=== PATIENT | male | born 1940 | race Caucasian/White ===

== ENCOUNTER 2019-02-01 13:38 | Outpatient (REF) | payer MEDICARE, MEDICAID, SELFPAY ==
[2019-02-01 15:27] LABS: Abs Immature Grans 0.01 k/cumm (0.0-0.09); Absolute Basophil Count 0.07 k/cumm (0.0-0.2); Absolute Lymphocyte Count 1.08 k/cumm (1.2-3.4); Absolute Monocyte Count 0.95 k/cumm (0.11-0.7); Absolute Neutrophil Count 4.42 k/cumm (1.2-6.7); Basophils % 1.1; Eosinophils % 1.5; HCT 27.5 % (40.0-50.0); HGB 8.3 g/dL (13.5-17.5); Immature Grans % 0.2; Lymphocytes % 16.3; Mean Corp. HGB Concentration 30.2 g/dL (32.0-36.0); Mean Corpuscular Hemoglobin 30.6 pg (27.0-33.0); Mean Corpuscular Volume 101.5 fL (80-95); Mean Platelet Volume 9.6 fL (8.0-11.0); Monocytes % 14.3; Neutrophils % 66.6; Platelet Count 323 x1000/uL (130-400); RBC 2.71 m/cumm (4.50-6.00); RBC Distribution Width 18.1 % (11.8-14.1); White Blood Cell Count 6.63 k/cumm (4.4-10.8)
[2019-02-01 16:13] LABS: BUN 16 mg/dL (7-18); CREATININE 0.96 mg/dL (0.70-1.30); Calcium 8.2 mg/dL (8.5-10.1); Chloride 98 mmol/L (98-107); Glucose 90 mg/dL (70-100); Potassium 3.7 mmol/L (3.5-5.1); Sodium 138 mmol/L (136-145)
[2019-02-01 16:20] LABS: Hypochromasia 1+; Macrocytosis 1+; Polychromasia Present
== END 2019-02-01 13:58 ==
LOC: LBN 13:38
PROVIDERS: PCP Family Medicine; Visit Provider Family Medicine
DX: J18.9 Pneumonia, unspecified organism (principal)
CPT/HCPCS: 80048; 85025

== ENCOUNTER 2019-02-03 11:23 | Outpatient (REF) | payer MEDICARE, MEDICAID, SELFPAY ==
[2019-02-03 11:45] LABS: HCT 28.8 % (40.0-50.0); HGB 8.7 g/dL (13.5-17.5)
== END 2019-02-03 11:43 ==
LOC: LBN 11:23
PROVIDERS: PCP Family Medicine; Visit Provider Family Medicine
DX: D64.9 Anemia, unspecified (principal)
CPT/HCPCS: 85014; 85018

== ENCOUNTER 2019-02-03 13:38 | Outpatient (REF) | payer MEDICARE, MEDICAID, SELFPAY | END 2019-02-03 13:58 | LOC: LBO 13:38 | PROVIDERS: PCP Family Medicine; Visit Provider Family Medicine | DX: D64.9 Anemia, unspecified (principal) | CPT/HCPCS: 36415; 86850; 86900; 86901 ==

== ENCOUNTER 2019-02-04 07:46 | Outpatient (REF) | payer MEDICARE, MEDICAID, SELFPAY ==
[2019-02-04 08:10] LABS: HCT 27.1 % (40.0-50.0); HGB 8.2 g/dL (13.5-17.5)
== END 2019-02-04 08:06 ==
LOC: LBN 07:46
PROVIDERS: PCP Family Medicine; Visit Provider Family Medicine
DX: D64.9 Anemia, unspecified (principal)
CPT/HCPCS: 85014; 85018

== ENCOUNTER 2019-02-09 13:45 | Inpatient (IN) | payer MEDICARE, MEDICAID, SELFPAY ==
[2019-02-09] VITALS (126 sets, daily range): BP systolic 65–135; BP diastolic 42–83; PULSE 77–188; RESP 5–37; TEMP 36.9–38.9; O2SAT 84–98
--- NOTE | 2019-02-09 13:52 | DI.RAD_ITS ---
SYMPTOMS/DIAGNOSIS: SHORTNESS OF BREATH PORTABLE AP CHEST: Comparison is made with January,. The heart is enlarged, unchanged. There are bilateral pleural effusions, not significantly changed. The left upper lobe opacity is partially obscured by an overlying lead. Right lower lobe infiltrate is also seen. IMPRESSION: No significant change in bilateral pleural effusions and basilar infiltrates, as well as left upper lobe infiltrate versus mass.
--- NOTE | 2019-02-09 13:55 | W.ED.GENAD ---
Discharge Plan Disposition Patient Disposition: [facility] INPATIENT Condition: Critical Discharge Details Chief Complaint: SOB Clinical Impression: Hypoxia, CHF exacerbation, HCAP (healthcare-associated pneumonia) Primary Care Provider: Ike Godoy ED Provider: Vasu Shin Medical Decision Making 78 yo male with documented hx from [facility] of copd, chf, who comes in with chief complaint of shortness of breath. He arrives in the ED in very labored breathing only able to speak in 1-2 words and aturations in the low 80's. He was placed on bipap when he arrived with significant improvement in his work of breathing. HE apparently has had worsening trouble breathing over the past several days and reported temp of 100 yesterday. HE denies chest pain or vomit. HE was recently d/c'd from [place] per the pt. On exam he has diminished breath sounds at the bases with apical wheezing, on bedside u/s has no pericardial effusion, has moderate pleural effuions bilaterally. Will obtain ecg, lab work and chest xray to [facility] for anemia, pna, infarction among other causes of his symptoms though I feel chf is likely the cause of his symptoms given his pleural effusions and pedal edema. Paperwork states dnr/dni which he confirms with me verbally as well pt remains HD stable on bipap. REviewed records from [facility]. He has a hx of lung cancer that he declines further eval and tx for , valvular heart disease (moderate T, mild , mild MR), peripheral artery disease (prior aortobifemoral stent and right external iliac stent), copd, chf, and severe pulmonary htn. He was admitted after he had compression fx's from a fall and also pna and copd exacerbation. HE subsequently had a gi bleed requiring transfusions and had an egd on 01/14 per their records showing gastritis, and was finally d/c'd on 01/26. His xray on my read shows edema with right infiltrate and labs show wbc of 13, negative troponin, probnp of over [address]. Spoke [address] headley who agrees with icu admission, will order abg at her request Differential Diagnosis copd, pna, chf Imaging Data Radiologic Study: Attestation: I personally reviewed and interpreted this imaging study as follows: Imaging: X-Ray My impression: pna, chf Lab Data Lab results reviewed: Yes I reviewed the patient's lab results. ECG Data Attestation: I personally reviewed and interpreted this ECG (s) as follows: Prior ECG tracings: not available for review Interpretation: sinus tachycardia, rate of 115, pr 145, st depressions in the lateral leads HPI General Mode of arrival: EMS. Date/Time Provider Initiated Documentation: 02/09/19 13:47. Information obtained by: patient and EMS. History of Present Illness 78 year old M presents to the emergency department with the chief complaint of short of breath, described as severe, Patient started experiencing this day(s) (3) and it has been constant. No relieving factors improve symptom(s), No exacerbating factors reported . Patient notes cough. Patient did receive the following treatments prior to arrival, none Review of Systems Review of Systems All systems reviewed & are unremarkable except as noted in HPI and below Eyes Denies loss of vision ENT Denies change in voice Cardiovascular Denies chest pain Gastrointestinal Denies abdominal pain, Denies nausea and Denies vomiting Genitourinary Denies dysuria Neurologic Denies loss of vision Exam Const General: in distress Orientation: alert HENMT Head: normal to inspection Ears: external ears normal General nose exam: external nose normal Mouth: moist mucous membranes Eyes General: appearance normal, both eyes and all related structures Neck Neck: normal visual inspection Resp Effort & Inspection: labored Cardio Rate: regular rate Skin General skin exam: no rashes or lesions noted Neuro General: alert Extrem General: normal to inspection Psych Mental Status: mental status grossly normal Course Lab/Test Results Lab/Test Results: 02/09/19 13:48 Blood Blood Culture - Pending 02/09/19 13:48 Blood Blood Culture - Pending Critical Care Time Critical Care Time: Yes Total Critical Care Time: 45 (minutes) Attestation: time spent initiating bipap, frequent rechecks, lab review and frequent monitoring of hemodynamics in patient with potential to deteriorate at any time
--- NOTE | 2019-02-09 14:01 | ED.GENADUL_ITS ---
Discharge Plan Disposition Patient Disposition: [facility] INPATIENT Condition: Critical Discharge Details Chief Complaint: SOB Clinical Impression: Hypoxia, CHF exacerbation, HCAP (healthcare-associated pneumonia) Primary Care Provider: Ike Godoy ED Provider: Vasu Shin Medical Decision Making 78 yo male with documented hx from [facility] of copd, chf, who comes in with chief complaint of shortness of breath. He arrives in the ED in ve ry labored breathing only able to speak in 1-2 words and aturations in the low 80's. He was placed on bipap when he arrived with significant improvement in his work of breathing. HE apparently has had worsening trouble breathing over the past several days and reported temp of 100 yesterday. HE denies chest pain or vomit. HE was recently d/c'd from [place] per the pt. On exam he has diminished breath sounds at the bases with apical wheezing, on bedside u/s has no pericardial effusion, has moderate pleural effuions bilaterally. Will obtain ecg, lab work and chest xray to ev[facility] for anemia, pna, infarction among other causes of his symptoms though I feel chf is likely the cause of his symptoms given his pleural effusions and pedal edema. Paperwork states dnr/dni which he confirms with me verbally as well pt remains HD stable on bipap. REviewed records from [facility]. He has a hx of lung cancer that he declines further eval and tx for , valvular heart disease (moderate T, mild , mild MR), peripheral artery disease (prior aortobifemoral stent and right external iliac stent), copd, chf, and severe pulmonary htn. He was admitted after he had compression fx's from a fall and also pna and copd exacerbation. HE subsequently had a gi bleed requiring transfusions and had an egd on 01/14 per their records showing gastritis, and was finally d/c'd on 01/26. His xray on my read shows edema with right infiltrate and labs show wbc of 13, negative troponin, probnp of over [address]. Spoke [address] headley who agrees with icu admission, will order abg at her request Differential Diagnosis copd, pna, chf Imaging Data Radiologic Study: Attestation: I personally reviewed and interpreted this imaging study as follows: Imaging: X-Ray My impression: pna, chf Lab Data Lab results reviewed: Yes I reviewed the patient's lab results. ECG Data Attestation: I personally reviewed and interpreted this ECG (s) as follows: Prior ECG tracings: not available for review Interpretation: sinus tachycardia, rate of 115, pr 145, st depressions in the lateral leads HPI General Mode of arrival: EMS . Date/Time Provider Initiated Documentation: 02/09/19 13:47 . Information obtained by: patient and EMS . History of Present Illness 78 year old M presents to the emergency department with the chief complaint of short of breath, described as severe, Patient started experiencing this day(s) (3) and it has been constant. No relieving factors improve symptom(s), No exacerbating factors reported . Patient notes cough. Patient did receive the following treatments prior to arrival, none Review of Systems Review of Systems All systems reviewed & are unremarkable except as noted in HPI and below Eyes Denies loss of vision ENT Denies change in voice Cardiovascular Denies chest pain Gastrointestinal Denies abdominal pain, Denies nausea and Denies vomiting Genitourinary Denies dysuria Neurologic Denies loss of vision Exam Const General: in distress Orientation: alert HENMT Head: normal to inspection Ears: external ears normal General nose exam: external nose normal Mouth: moist mucous membranes Eyes General: appearance normal, both eyes and all related structures Neck Neck: normal visual inspection Resp Effort & Inspection: labored Cardio Rate: regular rate Skin General skin exam: no rashes or lesions noted Neuro General: alert Extrem General: normal to inspection Psych Mental Status: mental status grossly normal Course Lab/Test Results Lab/Test Results: 02/09/19 13:48 Blood Blood Culture - Pending 02/09/19 13:48 Blood Blood Culture - Pending Critical Care Time Critical Care Time: Yes Total Critical Care Time: 45 (minutes) Attestation: time spent initiating bipap, frequent rechecks, lab review and frequent monitoring of hemodynamics in patient with potential to deteriorate at any time
--- NOTE | 2019-02-09 14:12 | NUR.NOTE ---
pt brought in by ems [facility] for respiratory distress and fever. reported that PT had fever of 102 and refused Tylenol and that o2 on 3 L NC was 79
[2019-02-09 14:15] LABS: Abs Immature Grans 0.04 k/cumm (0.0-0.09); HCT 31.5 % (40.0-50.0); HGB 9.5 g/dL (13.5-17.5); Mean Corp. HGB Concentration 30.2 g/dL (32.0-36.0); Mean Corpuscular Hemoglobin 30.6 pg (27.0-33.0); Mean Corpuscular Volume 101.6 fL (80-95); Mean Platelet Volume 8.9 fL (8.0-11.0); Platelet Count 313 x1000/uL (130-400); RBC Distribution Width 18.8 % (11.8-14.1); White Blood Cell Count 13.75 k/cumm (4.4-10.8)
[2019-02-09 14:27] LABS: INR 1.3 (0.9-1.1); PTT Activated 29.2 sec (21.0-31.4); Prothrombin Time 13.1 sec (9.3-11.0)
[2019-02-09 14:30] LABS: ALT 9 U/L (12-78); AST 16 U/L (15-37); Albumin 3.3 g/dL (3.4-5.0); Alkaline Phosphatase 112 U/L (46-116); Anion Gap 8.4 mmol/L (3-11); BUN 12 mg/dL (7-18); Bilirubin, Total 0.7 mg/dL (0.2-1.0); CO2 30.6 mmol/L (21.0-32.0); CREATININE 1.07 mg/dL (0.70-1.30); Calcium 8.4 mg/dL (8.5-10.1); Chloride 98 mmol/L (98-107); Glucose 112 mg/dL (70-100); Magnesium 1.5 mg/dL (1.8-2.4); Potassium 3.6 mmol/L (3.5-5.1); Sodium 137 mmol/L (136-145); Total Protein 7.4 g/dL (6.4-8.2); Troponin I 0.03 ng/mL (0.00-0.06)
[2019-02-09 14:33] LABS: NT-proBNP 8651 pg/mL
[2019-02-09 14:36] LABS: Absolute Lymphocyte Count 0.55 k/cumm (1.2-3.4); Absolute Monocyte Count 0.55 k/cumm (0.11-0.7); Absolute Neutrophil Count 12.65 k/cumm (1.2-6.7); Anisocytosis 2+; Basophilic Stippling Present; Diff Comment Manual Differential; Nucleated RBC 1 /100WBC
[2019-02-09 14:37] LABS: Hypochromasia 1+; Macrocytosis 2+; Microcytosis 1+; Polychromasia Present; Stomatocytes 2+
[2019-02-09 14:38] LABS: Poikilocytes 2+
[2019-02-09] MEDS: methylPREDNISolone SUCC 125 MG VIAL IVP (14:47)
[2019-02-09] MEDS: Furosemide 100 MG/10 ML VIAL 80 MG IVP (14:48)
[2019-02-09] MEDS: PIPERACILLIN/TAZO 4.5 GM in Normal Saline 100 ML IVPB (14:49)
[2019-02-09] MEDS: VANCOMYCIN 1,000 MG in Normal Saline 250 ML 166.6666 MG IVPB (14:49)
[2019-02-09 15:14] LABS: Bilirubin Negative (Negative); Blood Trace-intact (Negative); Clarity Clear; Glucose Negative (Negative); Ketones Negative (Negative); Leukocyte Esterase Negative (Negative); Nitrite Negative (Negative); Specific Gravity 1.015 (1.005-1.025); Urobilinogen 0.2 EU/dL (Up TO 0.2)
[2019-02-09 15:24] LABS: Bacteria Rare HPF (Negative); C & S Indicated? No; Casts 0-2 Hyaline LPF (Negative); Crystals Negative HPF (Negative); Epithelial Cells Rare HPF (Negative); Mucus Trace (Negative); Other Cells Rare Renal (Negative); RBC 0-2 (0-2); WBC 0-2 HPF (0-5)
[2019-02-09 15:40] LABS: BE 5.8 mmol/L (-3-3); HCO3 29 mmol/L (22-28); pCO2 40 mmHg (34-47); pH 7.48 (7.35-7.45); pO2 95 mmHg (83-108); sO2 98 % (94-98); tCO2 27 mmol/L (22-29)
[2019-02-09 15:43] LABS: FIO2 50 %; FIO2L BiPAP L; Site Right Radial
[2019-02-09] MEDS: Metoprolol 5 MG/5 ML VIAL IVP (15:50)
[2019-02-09] MEDS: dilTIAZem 125 MG in Normal Saline 100 ML IV (16:00)
--- NOTE | 2019-02-09 16:33 | W.PM.HP.N ---
Date of service: 02/09/19 Time of Service: 16:33 Assessment and Plan (1) Sepsis: Current visit: Yes Status: Acute Likely due to HCAP or possibly aspiration pneumonia. Blood cultures and sputum cultures are ordered. Treat with IV abx (vancomycin, zosyn). Trend lactates. At this point, IV hydration has to be done very carefully as the patient did present in florid CHF. (2) HCAP (healthcare-associated pneumonia): Current visit: Yes Status: Acute As above. Ensure there is no aspiration component. Speech therapy consulted. NPO while on BiPAP (3) Acute and chronic respiratory failure with hypoxia: Current visit: Yes Status: Acute Treat Pneumonia, COPD exacerbation, CHF - abx, diuresis as tolerated, rate control, steroids, nebs. Wean BiPAP as tolerated. (4) Acute exacerbation of chronic obstructive pulmonary disease (COPD): Current visit: Yes Status: Acute Treat as above (5) Rapid atrial fibrillation: Current visit: Yes Status: Acute Likely at least partially the cause of the acute exacerbation of CHF. Patient is on a cardizem gtt but BP's are borderline - will trial digoxin. Will monitor in the ICU. R/o ACS. (6) Acute CHF: Current visit: Yes Status: Acute On chronic. Reportedly has both systolic and diastolic dysfunction, but we are not aware of the actual EF. Check echo. R/o ACS. Diurese as BP's permit (right now, BP's are a little too low for me to comfortably give any more diuretics - will reassess in am). Monitor daily weights, I/O's. (7) Hypomagnesemia: Current visit: Yes Status: Acute Replete (8) CAD (coronary artery disease): Current visit: Yes Status: Chronic R/o ACS (9) H/O: GI bleed: Current visit: Yes Status: Resolved Abstaining from chemical DVT ppx. (10) Anemia: Current visit: Yes Status: Chronic H/H stable but will monitor (11) Ambulatory dysfunction: Current visit: Yes Status: Acute PT/OT consulted (12) Lung mass: Current visit: Yes Status: Acute Palliative care consult. (13) Discharge planning issues: Current visit: Yes Status: Acute DNR/DNI. Could possibly benefit from palliative care consultation (14) DVT prophylaxis: Current visit: Yes Status: Acute SCD's + TEDs History of Present Illness Chief Complaint: I couldn't breathe Narrative: Mr Hyman is a 78 year old male with PMHx of CAD, Atrial fibrillation, CHF (combined systolic and diastolic, EF unknown), COPD, PAD, severe pulmonary hypertension, recent pneumonia treated at [facility] 01/02/19 -01/26/19, GI bleed on that admission due to gastritis, lung cancer, BPH with urinary retention, who presented to [facility] ED from [facility] re[facility] complaining of shortness of breath. In the ED, he was found to by hypoxic to the 80's on 3L (described as his baseline), found to be in acute CHF, placed on BIPAP and diuresed. He was also found to have a RLL pneumonia, suspicious for aspiration. He went into rapid Afib with HR up to 170's, that minimally responded to 5 mg of IV lopressor. He was placed on cardizem gtt and given back 500 cc of NS to help with the BP (in the 80's, asymptomatic) so that he can tolerate it. We were asked to admit the patient for further care. The patient is A&Ox1, confused, but cooperative. He cannot provide his own history due to being on BIPAP and in respiratory distress. He was able to state he is no longer feeling short of breath (this is while with increased work of breathing), he denied chest pain, dizziness, or nausea. Review of Systems Review of Systems 12 systems reviewed. Pertinent positives and negatives are as per HPI. PFSH Medical History Alcohol dependence (Chronic) Ambulatory dysfunction (Chronic) Anemia, iron deficiency (Chronic) Atrial fibrillation (Chronic) BPH (benign prostatic hyperplasia) (Chronic) CAD (coronary artery disease) (Chronic) COPD (chronic obstructive pulmonary disease) (Chronic) Chronic combined systolic and diastolic CHF (congestive heart failure) (Chronic) Chronic respiratory failure with hypoxia (Chronic) Gastritis (Chronic) Gout (Chronic) Lung cancer (Chronic) PAD (peripheral artery disease) (Chronic) Pulmonary hypertension (Chronic) Tricuspid regurgitation (Chronic) Urinary retention (Chronic) Vertebral compression fracture (Chronic) GI hemorrhage (Resolved) Pneumonia (Resolved) Surgical History H/O angioplasty (Chronic) History of esophagogastroduodenoscopy (EGD) (Chronic) Hx of colonoscopy (Chronic) S/P aortobifemoral bypass surgery (Chronic) Social History Smoking/Tobacco Use Status: Former Tobacco Use Alcohol Intake: former Drug use: Never Details: [t short of breath non verbal Do you feel safe at home: Yes Do you feel safe in your relationship?: Yes Meds Home Medications Medication Instructions Recorded Confirmed Type acetaminophen 500 mg PO Q6H PRN 02/09/19 02/09/19 History albuterol sulfate [Ventolin HFA] 2 puff INHALATION Q4H PRN PRN 02/09/19 02/09/19 History allopurinol 300 mg PO DAILY 02/09/19 02/09/19 History alum-mag hydroxide-simeth [Antacid] 10 ml PO Q6H PRN 02/09/19 02/09/19 History calcium carbonate-vitamin D3 1 cap PO TID 02/09/19 02/09/19 History [Calcium 600 + D(3)] docusate sodium [Colace] 100 mg PO BID 02/09/19 02/09/19 History ferrous sulfate 325 mg PO BID 02/09/19 02/09/19 History finasteride 5 mg PO DAILY 02/09/19 02/09/19 History fluticasone furoate-vilanterol 1 inh INHALATION DAILY 02/09/19 02/09/19 History [Breo Ellipta] folic acid 1 mg PO DAILY 02/09/19 02/09/19 History furosemide 40 mg PO DAILY 02/09/19 02/09/19 History gabapentin 300 mg PO TID 02/09/19 02/09/19 History lidocaine [Lidoderm] 1 patch TRANSDERMAL DAILY 02/09/19 02/09/19 History metoprolol succinate 50 mg PO DAILY 02/09/19 02/09/19 History multivitamin 1 tab PO DAILY 02/09/19 02/09/19 History oxycodone 5 mg PO Q6H 02/09/19 02/09/19 History pantoprazole [Protonix] 40 mg PO BID 02/09/19 02/09/19 History polyethylene glycol 3350 [Miralax] 17 g PO DAILY 02/09/19 02/09/19 History primidone 50 mg PO TID 02/09/19 02/09/19 History sennosides [senna] 17.2 mg PO DAILY 02/09/19 02/09/19 History simvastatin 20 mg PO QAM 02/09/19 02/09/19 History sucralfate 1 g PO AC & HS 02/09/19 02/09/19 History tamsulosin [Flomax] 0.8 mg PO DAILY 02/09/19 02/09/19 History thiamine HCl (vitamin B1) 100 mg PO DAILY 02/09/19 02/09/19 History Exam Narrative Exam Narrative: General: Elderly male, in bed, with respiratory distress, on BiPAP, appears anxious Neurological: A&Ox1, no focal deficits Psychiatric: Anxious Skin: Dry HEENT: Atraumatic, normocephalic, EOMI, Dry MM, wearing BiPAP - unable to examine oropharynx; no submandibular or cervical lymphadenopathy, no goiter, + slight Cardiovascular: Tachycardic, when listening - rhythm regular Lungs: Ronchi and rales Bilaterally Gastrointestinal: abdomen is soft, nontender, nondistended Genitourinary: has a edwards Extremities: 2+ BLE edema, 1+ B pedal pulses, no clubbing/cyanosis Results Imaging Additional studies: CXR: No significant change in bilateral pleural effusions and basilar infiltrates, as well as left upper lobe infiltrate versus mass. CTA chest: 1. Mild mediastinal and hilar adenopathy. 2. Bilateral small pleural effusions with associated atelectasis. 3. 4 x 3 x 4.4 cm masslike density with ill-defined margins left upper lobe. Neoplasm cannot be excluded. 4. Mild patchy somewhat nodular air space disease scattered throughout the right lung and left lower lobe. 5. Cirrhotic appearing liver. 6. No pulmonary embolism identified. EKG: HR 163, Afib, Diffuse ST depressions Labs : 02/09/19 14:00 02/09/19 14:00 Laboratory Results - last 24 hr 02/09/19 02/09/19 02/09/19 14:00 14:00 14:00 WBC 13.75 H RBC 3.10 L Hgb 9.5 L Hct 31.5 L MCV 101.6 H MCH 30.6 MCHC 30.2 L RDW 18.8 H Plt Count 313 MPV 8.9 Immature Gran % 0.0 Neutrophils % 90.0 Band Neutrophils % 2.0 Lymphocytes % 4.0 Monocytes % 4.0 Eosinophils % 0.0 Basophils % 0.0 Absolute Neutrophils 12.65 H Absolute Lymphocytes 0.55 L Absolute Monocytes 0.55 Absolute Eosinophils 0.00 Absolute Basophils 0.00 Nucleated RBCs 1 Differential Comment Manual differential RBC Morphology See below Polychromasia Present Hypochromasia 1+ Poikilocytosis 2+ Basophilic Stippling Present Anisocytosis 2+ Microcytosis 1+ Macrocytosis 2+ Stomatocytes 2+ PT INR APTT Sample Site pCO2 pO2 O2 Saturation ABG pH ABG HCO3 ABG Total CO2 ABG Base Excess Oxygen Liter Flow FiO2 Sodium 137 Potassium 3.6 Chloride 98 Carbon Dioxide 30.6 Anion Gap 8.4 BUN 12 Creatinine 1.07 Estimated GFR/1.73 m2 >= 60.00 Glucose 112 H Calcium 8.4 L Magnesium 1.5 L Total Bilirubin 0.7 AST 16 ALT 9 L Alkaline Phosphatase 112 Troponin I 0.03 NT-Pro-B Natriuret Pep 8651 H Total Protein 7.4 Albumin 3.3 L Urine Color Urine Clarity Urine pH Ur Specific [place] Urine Protein Urine Ketones Urine Blood Urine Nitrite Urine Bilirubin Urine Urobilinogen Ur Leukocyte Esterase Urine RBC Urine WBC Ur Epithelial Cells Urine Crystals Urine Bacteria Urine Casts Urine Mucus Urine Other Ur Culture Indicated? Urine Glucose 02/09/19 02/09/19 02/09/19 14:00 15:00 15:35 WBC RBC Hgb Hct MCV MCH MCHC RDW Plt Count MPV Immature Gran % Neutrophils % Band Neutrophils % Lymphocytes % Monocytes % Eosinophils % Basophils % Absolute Neutrophils Absolute Lymphocytes Absolute Monocytes Absolute Eosinophils Absolute Basophils Nucleated RBCs Differential Comment RBC Morphology Polychromasia Hypochromasia Poikilocytosis Basophilic Stippling Anisocytosis Microcytosis Macrocytosis Stomatocytes PT 13.1 H INR 1.3 H APTT 29.2 Sample Site Right radial pCO2 40 pO2 95 O2 Saturation 98 ABG pH 7.48 H ABG HCO3 29 H ABG Total CO2 27 ABG Base Excess 5.8 H Oxygen Liter Flow Bipap FiO2 50 Sodium Potassium Chloride Carbon Dioxide Anion Gap BUN Creatinine Estimated GFR/1.73 m2 Glucose Calcium Magnesium Total Bilirubin AST ALT Alkaline Phosphatase Troponin I NT-Pro-B Natriuret Pep Total Protein Albumin Urine Color Yellow Urine Clarity Clear Urine pH 6.0 Ur Specific [place] 1.015 Urine Protein 100 H Urine Ketones Negative Urine Blood Trace-intact H Urine Nitrite Negative Urine Bilirubin Negative Urine Urobilinogen 0.2 Ur Leukocyte Esterase Negative Urine RBC 0-2 Urine WBC 0-2 Ur Epithelial Cells Rare Urine Crystals Negative Urine Bacteria Rare Urine Casts 0-2 hyaline Urine Mucus Trace Urine Other Rare renal Ur Culture Indicated? No Urine Glucose Negative Last Vital Signs Temp 38.9 C H 02/09/19 14:14 Pulse 153 H 02/09/19 16:12 Resp 23 02/09/19 16:15 BP 111/76 02/09/19 16:15 Pulse Ox 95 02/09/19 16:15
--- NOTE | 2019-02-09 16:55 | DI.CT_ITS ---
SYMPTOM/DIAGNOSIS: HYPOXIA, LUNG CA, ? PE PE CHEST CT: CT angiography was performed with multi slice acquisition and multi planar and 3D reconstruction. The study was conducted according to the usual protocol with an intravenous administration of 69 cc's of Omnipaque 350. There are atherosclerotic changes involving the aorta without evidence of an aneurysm. There is a 4 by 3 by 4.4 cm. mass density with ill defined margins in the left upper lobe. Also noted is made of patchy and somewhat nodular air space disease scattered throughout the right lung and left lower lobe. Small bilateral pleural effusions are associated with atelectasis. The heart is mildly enlarged and coronary artery calcification is demonstrated. In the upper abdomen, note is made of a nodular liver, the findings consistent with cirrhosis. There is mild adenopathy in the mediastinum and brad. The bony structures are unremarkable. Note is also made in this patient of apparent bilateral gynecomastia. SUMMARY: Mild mediastinal hilar adenopathy. No evidence of pulmonary embolic disease. Bilateral small pleural effusions. There is a 4 by 3 by 4.4 cm. apparent mass density with ill defined margins in the left upper lobe. Note is also made of mild patchy somewhat nodular air space disease throughout the right lung and left lower lobe. The appearance of the liver would be consistent with cirrhosis.
[2019-02-09] MEDS: Pantoprazole 40 MG VIAL IVP ×2 (17:29→21:03)
[2019-02-09] MEDS: Normal Saline Flush 10 ML SYR IVP ×2 (17:29→17:53)
--- NOTE | 2019-02-09 17:40 | DI.VRAD_ITS ---
EXAM: CT Angiography Chest With Contrast EXAM DATE/TIME: 02/09/2019 4:02 PM CLINICAL HISTORY: 78 years old, male; Signs and symptoms; Shortness of breath; Patient HX: Hypoxia, lung cancer, ? pe TECHNIQUE: Imaging protocol: Axial computed tomographic angiography images of the chest with intravenous contrast using CT angiography protocol. Coronal and sagittal reformatted images were created and reviewed. 3D rendering: MIP reconstructed images were created and reviewed. Radiation optimization: All CT scans at this facility use at least one of these dose optimization techniques: automated exposure control; mA and/or kV adjustment per patient size (includes targeted exams where dose is matched to clinical indication); or iterative reconstruction. Contrast material: omnipaque 350 Contrast volume: 69 ml Contrast route: IV COMPARISON: CR XR PORTABLE CHEST AP 02/09/2019 2:28 PM FINDINGS: Pulmonary arteries: No pulmonary embolism identified. Aorta: Aorta demonstrates moderate atherosclerotic calcification. Lungs: 4 x 3 x 4.4 cm masslike density with ill-defined margins left upper lobe. Mild patchy somewhat nodular air space disease scattered throughout the right lung and left lower lobe. Pleural space: Bilateral small pleural effusions with associated atelectasis. Heart: Mild cardiomegaly. Coronary artery calcifications noted. Liver: Nodular contour to the liver consistent with hepatocellular dysfunction/ cirrhosis. Lymph nodes: Mild mediastinal and hilar adenopathy. Bones/joints: Unremarkable. No acute fracture. Soft tissues: Bilateral gynecomastia. IMPRESSION: 1. Mild mediastinal and hilar adenopathy. 2. Bilateral small pleural effusions with associated atelectasis. 3. 4 x 3 x 4.4 cm masslike density with ill-defined margins left upper lobe. Neoplasm cannot be excluded. 4. Mild patchy somewhat nodular air space disease scattered throughout the right lung and left lower lobe. 5. Cirrhotic appearing liver. 6. No pulmonary embolism identified. Dictated and Authenticated by: Alcides Burgos MD. Ordering:IVET Leone MD
[2019-02-09] MEDS: Digoxin 0.5 MG/2 ML AMP 0.125 MG IVP (17:52)
[2019-02-09] MEDS: Digoxin 0.5 MG/2 ML AMP (18:16)
[2019-02-09 18:18] LABS: Lactate-non-spesis 1.2 mmol/l (0.6-1.4)
[2019-02-09] MEDS: Normal Saline 1,000 ML 75 ML IV (18:45)
[2019-02-09] MEDS: MAGNESIUM SULFATE 4 GM/100 ML BAG IVPB (18:50)
[2019-02-09] MEDS: Normal Saline 500 ML IV ×2 (19:30→19:45)
[2019-02-09 20:14] LABS: HCT 27.3 % (40.0-50.0); HGB 8.2 g/dL (13.5-17.5)
[2019-02-09 20:56] LABS: Troponin I 0.14 ng/mL (0.00-0.06)
[2019-02-09] MEDS: Calcium 600mg/Vit D 200U TAB 1 TAB PO (21:02)
[2019-02-09] MEDS: Ferrous Sulfate 325 MG TAB PO (21:02)
[2019-02-09] MEDS: Docusate Sodium 100 MG CAP PO (21:02)
[2019-02-09] MEDS: Simvastatin 20 MG TAB PO (21:05)
[2019-02-09] MEDS: Sucralfate 1 GM TAB PO (21:05)
[2019-02-09] MEDS: Gabapentin 300 MG CAP PO (21:05)
[2019-02-09] MEDS: methylPREDNISolone SUCC 125 MG VIAL 60 MG IVP (21:06)
[2019-02-09] MEDS: Primidone 50 MG TAB PO (21:55)
[2019-02-09 23:59] LABS: Troponin I 0.56 ng/mL (0.00-0.06)
[2019-02-10] VITALS (141 sets, daily range): BP systolic 72–124; BP diastolic 30–84; PULSE 61–103; RESP 14–29; TEMP 36.5–37.1; O2SAT 91–100
[2019-02-10] MEDS: dilTIAZem 30 MG TAB PO ×4 (00:36→19:35)
[2019-02-10] MEDS: Normal Saline Flush 10 ML SYR IVP ×3 (05:24→21:14)
[2019-02-10] MEDS: methylPREDNISolone SUCC 125 MG VIAL 60 MG IVP ×3 (05:24→21:16)
[2019-02-10] MEDS: Budesonide/Formoterol 160/4.5 6 GM 60 PUFF INH IH ×2 (07:20→19:34)
[2019-02-10 07:21] LABS: Absolute Basophil Count 0.01 k/cumm (0.0-0.2); Absolute Lymphocyte Count 0.25 k/cumm (1.2-3.4); Absolute Monocyte Count 0.36 k/cumm (0.11-0.7); Basophils % 0.3; HCT 27.5 % (40.0-50.0); HGB 8.2 g/dL (13.5-17.5); Lymphocytes % 6.5; Mean Corp. HGB Concentration 29.8 g/dL (32.0-36.0); Mean Corpuscular Hemoglobin 30.4 pg (27.0-33.0); Mean Corpuscular Volume 101.9 fL (80-95); Mean Platelet Volume 9.5 fL (8.0-11.0); Monocytes % 9.4; Neutrophils % 83.8; Platelet Count 243 x1000/uL (130-400); RBC Distribution Width 18.7 % (11.8-14.1); White Blood Cell Count 3.82 k/cumm (4.4-10.8)
[2019-02-10 07:42] LABS: BUN 16 mg/dL (7-18); CREATININE 1.06 mg/dL (0.70-1.30); Calcium 7.8 mg/dL (8.5-10.1); Chloride 99 mmol/L (98-107); Cholesterol 106 mg/dL (50-200); Glucose 133 mg/dL (70-100); HDL Cholesterol 43 mg/dL (40-60); LDL CHOLESTEROL 59 mg/dL (<100); Magnesium 2.2 mg/dL (1.8-2.4); Potassium 3.1 mmol/L (3.5-5.1); Sodium 137 mmol/L (136-145); TSH (W/Ref FT4) 0.57 uIU/mL (0.358-3.74); Triglyceride 50 mg/dL (30-150)
[2019-02-10] MEDS: Polyethylene Glycol 3350 17 GM PACKET PO (08:02)
[2019-02-10] MEDS: Lidocaine 5% Patch 1 PATCH TD (08:02)
[2019-02-10] MEDS: Pantoprazole 40 MG VIAL IVP ×2 (08:03→19:35)
[2019-02-10] MEDS: Gabapentin 300 MG CAP PO ×3 (08:04→19:35)
[2019-02-10] MEDS: Tamsulosin 0.4 MG CAPCR 0.8 MG PO (08:04)
[2019-02-10] MEDS: Metoprolol CR 50 MG TABCR PO (08:05)
[2019-02-10] MEDS: Thiamine 100 MG TAB PO (08:05)
[2019-02-10] MEDS: Ferrous Sulfate 325 MG TAB PO ×2 (08:05→19:35)
[2019-02-10] MEDS: Senna TAB 1 TAB PO (08:05)
[2019-02-10] MEDS: Docusate Sodium 100 MG CAP PO ×2 (08:05→19:35)
[2019-02-10] MEDS: Folic Acid 1 MG TAB PO (08:05)
[2019-02-10] MEDS: Multivitamin TAB 1 TAB PO (08:05)
[2019-02-10] MEDS: Calcium 600mg/Vit D 200U TAB 1 TAB PO ×3 (08:05→19:35)
[2019-02-10] MEDS: Sucralfate 1 GM TAB PO ×4 (08:05→21:15)
--- NOTE | 2019-02-10 08:52 | EVALE_ITS ---
Date of service: 02/08/19 Time of Service: 07:15 Speech Therapy Evaluation Note: REFERRING PROVIDER: Dr. Hanson BACKGROUND This is a 78 year old right-handed male who was brought to the ED from [facility] on 02/09/19 with c/o dyspnea. He was found to have hypoxia, COPD exacerbation & HCAP. A CXR of that date revealed bilateral (B) pleural effusions and RLL infiltrate. A swallow eval was requested due to a question of aspiration pneumonia. PMH: CAD, A-fib, CHF, COPD, PAD, BPH, lung CA, pulmonary HTN, GOUT, ETOH dependance, recent h/o pneumonia. OBJECTIVE Nursing reports: - T: 37.0 - O2 sat: 95% on 4L via NC - LS: crackles B in the presence of ABX. - Pt is n.p.o. with the exception of p.o.medications. - Toleration of whole pills with a Thin liquid wash. Patient (pt) is reclined in bed watching TV. He is willing to have me work with him but he seems to do so grudgingly. He offers no smile nor any verbal or gestural greeting. He makes minimal direct eye contact with me unless asked to turn his head toward me. He is A & O x 2 (person, place with self-correction) and is able to follow 3-step directions. Oral Sensorimotor Exam The pt is totally edentulous and has a full upper denture (FUD) and full lower denture (FLD). He states they are 13-14 years old and they do not cause him any discomfort. He feels the FUD fits well and he does not use any denture adhesive. He never takes them out, even to clean them. On inspection, they look to be in good condition and the FUD is stable. Oral sensation is WNL-B for buccal, labial & lingual areas. Motorically, the smile is symmetrical as are forehead wrinkles. Buccal & labial strength/coordination is WNL-B. No lingual deviation on protrusion is seen in a setting of good excursion. Lingual lateralization is WNL-B as are lingual rapid alternating movements. No lingual fasciculations are noted. Lingual strength is WNL-B as is mandibular lateralization. Velopharyngeal elevation is strong and symmetrical. Volitional cough & throat-clear are both strong. Speech intelligibility to this unfamiliar listener in a setting of mild background noise is 100%. Vocal quality & intensity are WNL. Swallowing: - Honey-thick liquid: Good bolus control & posterior oral transit (POT); no abran signs/symptoms (s/s) aspiration/penetration (A/P); oral clearance 100%; no oral escape. These results are true for both single and consecutive swallows by cup. - Mcbaine-thick liquid: Results are the same as for Honey-thick liquid. These results are true for both single & consecutive swallows by both cup & straw. - Thin liquid: Results are the same as for Mcbaine-thick liquid. - Puree food: Good bolus control & linguopalatal bolus compression; no abran s/s A/P; oral clearance 100%; no oral escape. - Mechanically Altered food: Good mastication quality, bolus control & POT; no abran s/s A/P; oral clearance 100%; no oral escape. - Dysphagia Advanced food: Use of increased mastication time but this does result in good mastication quality; no abran s/s /P; oral clearance 100%; no oral escape. Pt is observed to self-feed independently using his LUE and a regular utensil. He has difficulty using his dominant RUE due to tremor. INTERPRETATION The pt shows a mild oral-prep dysphagia due to having full upper and lower dentures. He shows no clinical signs of a pharyngeal dysphagia. His current pneumonia may not be due to aspiration unless he has silent aspiration or was on foods he was unable to consistently chew sufficiently for safe swallowing. RECOMMENDATIONS 1. Change from n.p.o. to p.o. with: - Thin liquids - a Dysphagia Advnaced diet with chopped meats - whole pills with a liquid wash 2. Independent self-feeding 3. Follow-up speech therapy to monitor pt's toleration of above p.o. consistencies. Thank you for referring this pt.
[2019-02-10] MEDS: Potassium Chloride 20 MEQ TABCR 40 MEQ PO (09:08)
[2019-02-10] MEDS: Primidone 50 MG TAB PO ×3 (09:08→19:35)
[2019-02-10] MEDS: Allopurinol 300 MG TAB PO (09:08)
[2019-02-10] MEDS: Finasteride 5 MG TAB PO (09:08)
--- NOTE | 2019-02-10 09:15 | MERGE_ITS ---
*[facility]* *[facility]* [address] [place] [address] Date of study: 02/10/2019 Transthoracic Echocardiography M-mode, complete 2D, complete spectral Doppler, and color Doppler *STUDY CONCLUSIONS* Summary: 1. Left ventricle: The cavity size was normal. Systolic function was hyperdynamic. The estimated ejection fraction was 65-70%. Some parameters suggest diastolic dysfunction. Doppler parameters are consistent with high ventricular filling pressure. Stroke volume/bsa (LVOT, Doppler): 26ml/m^2. 2. Ventricular septum: The contour showed diastolic flattening and systolic flattening. These changes are consistent with RV volume and RV pressure overload. 3. Aortic valve: There was moderate stenosis. Peak velocity (S): 2.1m/sec. Mean gradient (S): 10.6mm Hg. Valve area (VTI): 1.3cm^2. Indexed valve area (Vmean): 0.6cm^2/m^2. 4. Mitral valve: Mildly calcified annulus. There was moderate to severe regurgitation. 5. Left atrium: The atrium was severely dilated. 6. Right ventricle: The cavity size was mildly dilated. Systolic function was moderately reduced. 7. Right atrium: The atrium was severely dilated. 8. Atrial septum: No defect or patent foramen ovale was identified. 9. Tricuspid valve: There was severe regurgitation. 10. Pulmonic valve: There was moderate regurgitation. 11. Pulmonary arteries: Pulmonary systolic pressure was in the range of 100mm Hg to 115mm Hg. 12. Inferior vena cava: The vessel was patent and normal in size. The respirophasic diameter changes were in the normal range (greater than or equal to 50%), consistent with normal central venous pressure. *PATIENT PRESENTATION* Height: 180.3cm ((71in) ) S/D Pressure: 119 / 57 Weight: 77.1kg ((169.6lb) ) BSA: 1.97m^2 Test start time: 09:20 AM. Test stop time: 10:15 AM. PERFORMING Unknown CONSULTING Ike Godoy PERFORMING [facility] FUR COAT SEWER RT Naomie (R)(CT), [facility] ORDERING Ninfa Hanson REFERRING Ninfa Hanson *PROCEDURE DATA* Procedure information: The patient was identified by two identifiers. This study was interpreted by [facility]. Pertinent images and digital data are archived for permanent storage and are available for subsequent review. No prior study was available for comparison. Study status: Routine. Transthoracic echocardiography. M-mode, complete 2D, complete spectral Doppler, and color Doppler. A Transthoracic Echocardiogram was performed. Scanning was performed from the parasternal, apical, subcostal, and suprasternal notch acoustic windows. Images were obtained using an [id number] cardiac ultrasound machine. Image quality was adequate. Study completion: The patient tolerated the procedure well. History: PMH: CHF. *CARDIAC ANATOMY* Left ventricle: The cavity size was normal. Systolic function was hyperdynamic. The estimated ejection fraction was 65-70%. Some parameters suggest diastolic dysfunction. Doppler parameters are consistent with high ventricular filling pressure. Aortic valve: Severely thickened, severely calcified leaflets. Doppler: There was moderate stenosis. There was no significant regurgitation. VTI ratio of LVOT to aortic valve: 0.44. Valve area (VTI): 1.3cm^2. Indexed valve area (VTI): 0.7cm^2/m^2. Peak velocity ratio of LVOT to aortic valve: 0.39. Valve area (Vmax): 1.2cm^2. Indexed valve area (Vmax): 0.6cm^2/m^2. Mean velocity ratio of LVOT to aortic valve: 0.43. Valve area (Vmean): 1.3cm^2. Indexed valve area (Vmean): 0.6cm^2/m^2. Mean gradient (S): 10.6mm Hg. Peak gradient (S): 18.2mm Hg. Mitral valve: Mildly calcified annulus. Doppler: There was no evidence for stenosis. There was moderate to severe regurgitation. Valve area by pressure half-time: 4cm^2. Indexed valve area by pressure half-time: 2cm^2/m^2. Peak gradient (D): 9.6mm Hg. Left atrium: The atrium was severely dilated. Atrial septum: No defect or patent foramen ovale was identified. Right ventricle: The cavity size was mildly dilated. Systolic function was moderately reduced. Ventricular septum: The contour showed diastolic flattening and systolic flattening. These changes are consistent with RV volume and RV pressure overload. Pulmonic valve: Doppler: There was no evidence for stenosis. There was moderate regurgitation. Peak gradient (S): 9mm Hg. Tricuspid valve: Doppler: There was severe regurgitation. Pulmonary artery: Poorly visualized. Pulmonary systolic pressure was in the range of 100mm Hg to 115mm Hg. Right atrium: The atrium was severely dilated. Pericardium: There was no pericardial effusion. Systemic veins: Inferior vena cava: Well visualized. The vessel was patent and normal in size. The respirophasic diameter changes were in the normal range (greater than or equal to 50%), consistent with normal central venous pressure. Baseline ECG: Normal sinus rhythm. Measurements Left ventricle Value Reference LV ID, ED, PLAX 4.9 cm 3.5 - 6.0 LV ID, ES, PLAX 3.4 cm 2.1 - 4.0 LV PW thickness, ED, PLAX 1.4 cm LV end-diastolic volume, 1-p A2C 106 ml LV ejection fraction, 1-p A2C 60 % LV end-diastolic volume, 1-p A4C 115 ml LV ejection fraction, 1-p A4C 67 % LV e', lateral 0.102 m/sec LV E/e', lateral 15 LV e', medial 0.079 m/sec LV E/e', medial 20 LV e', average 0.09 m/sec LV E/e', average 17 Ventricular septum Value Reference IVS thickness, ED, PLAX 1.2 cm LVOT Value Reference LVOT ID, A-P 1.9 cm LVOT area 3 cm^2 LVOT peak velocity, S 0.83 m/sec LVOT mean velocity, S 0.66 m/sec LVOT VTI, S 17.2 cm LVOT peak gradient, S 2.8 mm Hg LVOT mean gradient, S 1.9 mm Hg Stroke volume (SV), LVOT DP 51 ml Stroke index (SV/bsa), LVOT DP 26 ml/m^2 Aortic valve Value Reference Aortic valve peak velocity, S 2.1 m/sec Aortic valve mean velocity, S 1.53 m/sec Aortic valve VTI, S 39.0 cm Aortic mean gradient, S 10.6 mm Hg Aortic peak gradient, S 18.2 mm Hg VTI ratio, LVOT/AV 0.44 Aortic valve area, VTI 1.3 cm^2 Velocity ratio, peak, LVOT/AV 0.39 Aortic valve area, peak velocity 1.2 cm^2 Velocity ratio, mean, LVOT/AV 0.43 Aortic valve area, mean velocity 1.3 cm^2 Aortic valve area/bsa, mean velocity 0.6 cm^2/m^2 Aorta Value Reference Aortic root ID, ED 3.3 cm Ascending aorta ID, A-P, S 2.9 cm RVOT Value Reference RVOT VTI, S 11.6 cm Left atrium Value Reference LA area, ES, A4C (H) 34.1 cm^2 8.8 - 23.4 LA area, ES, A2C 26 cm^2 LA volume/bsa, ES, 1-p A4C 73 ml/m^2 LA volume, ES, 2-p 113 ml LA volume/bsa, ES, 2-p 58 ml/m^2 Mitral valve Value Reference Mitral E-wave peak velocity 1.55 m/sec Mitral A-wave peak velocity 0.88 m/sec Mitral deceleration time 190 ms 150 - 230 Mitral pressure half-time 55 ms Mitral peak gradient, D 9.6 mm Hg Mitral E/A ratio, peak 1.77 Mitral valve area, PHT, DP 4 cm^2 Tricuspid valve Value Reference Tricuspid regurg peak velocity 5.1 m/sec Tricuspid peak RV-RA gradient 102.4 mm Hg Right atrium Value Reference RA area, ES, A4C (H) 30.7 cm^2 8.3 - 19.5 Pulmonic valve Value Reference Pulmonic peak gradient, S 9 mm Hg Pulmonic regurg velocity, ED 1.5 m/sec Pulmonic regurg gradient, ED 9 mm Hg Legend: (L) and (H) tiffany values outside specified reference range. I have personally reviewed the images and have reviewed and edited the reported findings. Electronically signed by Vasu Oliveira MD 02/10/2019 17:42
--- NOTE | 2019-02-10 11:07 | DI.RAD_ITS ---
SYMPTOMS/DIAGNOSIS: F/U PNEUMONIA/CHF PORTABLE AP UPRIGHT CHEST: When compared with the previous examination of 02/09, interval deterioration is demonstrated with increased consolidation/atelectasis involving both lower lobes. Again noted is a rounded density projected over the right upper lobe. The heart is enlarged. Prominence of the upper lobe vessels is demonstrated. SUMMARY: When compared with the previous examination, interval deterioration is demonstrated. The findings would be consistent with an acute pneumonitis. Again suggested is the possibility of a left upper lobe mass and the possibility of superimposed congestive failure could not be excluded.
--- NOTE | 2019-02-10 11:11 | OT.INNT ---
Date of service: 02/10/19 Time of Service: 09:40 Occupational Therapy Notes 02/10/19 OT consult received and pts chart was reviewed. OT went to see pt and pt was having an echocardiogram performed. OT will touch base with pt tomorrow. Sheela Oneil OTKarin/[facility]
--- NOTE | 2019-02-10 12:18 | PHARADMIT ---
Addendum entered by Eneida Bergman 02/16/19 17:23: Vanco/Zosyn dc'd today Mag 1.7, K+ 3.7 Hg 7.5 this morning, then 9.4 after 1 unit of blood, no stool to check today for heme+ Prednisone decreased to daily, K+ and Mag replaced Baseline Sats ~ 92% OxyIR oral changed to MS IR oral Is on Lasix, watch weights (down 0.6kg) Pt asked about Hospice/SNF? Addendum entered by Janice Nicole 02/11/19 13:02: Pharmacy Note Subjective palliative consult today, pt has pulmonary hypertension, should be on bipap Objective vs ok, troponins positive Assessment furosemide infusion rate increased to 5ml/hr Plan evaluate vanco trough Original Note: Admission Pharmacy Clinical Review SEPSIS DUE TO ASPIRATION PNEUMONIA-HCAP, RESP.FAILURE, COPD exacerbation, CHF Code Status DNR/DNI Current Weight 77.4 kg Renally Cleared and Narrow Therapeutic Index Meds QTc Value / Action Taken QTC 454 BP Control, Fever BP 93/59 Afebrile Electrolytes reviewed K+ 3.1 Mag 2.2 DVT Prophylaxis NONE-Hx of recent GI bleed SCD's/TEDS Opiate Usage / Scheduled Bowel Regimen Ordered yes/yes OxyIR scheduled-but not being given Plt/SCr for Heparin / Enoxaparin Plt 243 SCr 1.06 INR for Warfarin H/H stable, WBC/Bands H/H 8.2/27.5-chronic anemia WBC 3.82 (down from 13.75) on IV steroids Antibiotic appropriateness Zosyn/Vanco Vanco trough ordered for 02/11/19 @ 1300 Cultures and Sensitivities flu negative Blood pending MRSA nare pending Surgical ABX d/c within 24 hr DM control / Insulin Dosing BG 133 Heart Failure (Check EF%) (MARILIN's, B-Block, Diuretics) Phenylephrine infusion was ordered...never started, MD rosario'd Diltiazem Lasix infusion started this morning Toprol IV to PO Switch steroids, PPI Home Meds Reviewed Home Meds Not Ordered Comments troponin increased, most recent 0.8 this morning ECHO today-results not ready Was in Afib-converted ?Palliative consult-has Hx of lung mass- didn't think workup was done Was at [facility] hosp 01/02/19-01/26/19, then [facility] elevated
[2019-02-10] MEDS: oxyCODONE 5 MG TAB PO ×2 (13:27→19:02)
--- NOTE | 2019-02-10 13:42 | PDOC.CMIN ---
- If Service Date Differs Date of service: 02/10/19 Time of Service: 13:42 Care Management Initial Assess REASON FOR HOSPITALIZATION:: HCAP, Sepsis PAST MEDICAL HISTORY/PAST SURGICAL HISTORY:: Alcohol depedence, anemia, CAD, BPH, COPD, GI bleeding, lung cancer, pulmonary retention, peripheral artery disease, tricuspid regurgitation, urinary retension. Surgical hx:Aortoifemoral bypass surgery angioplasty, EGD, and colonoscopy. PREVIOUS FUNCTIONAL STATUS/SOCIAL/FAMILY SUPPORTS:: [facility] He was recently at [facility] and transition to rehab after a long acute admission. He has three sons, two sisters that are here and a friend Estefania that provide him suppport. 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 He was unable to care from himself after prolonged hospital admission and was referred to Rehab prior to returning home. CURRENT FUNCTIONAL STATUS:: Dave is sitting up in the chair he is alert and engaged during assessment. His friend Estefania is in the room whom he agrees it allowed to hear shared information about his discharge planning. Dave would prefer to return home from the hosptial he does not want to return to [facility]. CM will coordinate a team meeting with the alnia and his family with palliative care to review options. Estefania states she is willing to move in with marcos to provide care and support. ADVANCE DIRECTIVES:: In Pt chart, faxed to access Has patient been provided with information about the portal?: Yes Did the patient sign up for the portal?: No CODE STATUS:: DNR/DNI INSURANCE COVERAGE / FINANCIAL ISSUES:: Medicare, medicaid CURRENT HOME/COMMUNITY SERVICES/EQUIPMENT:: [facility] post hospital stay. PRIMARY CARE PHYSICIAN:: POTENTIAL DISCHARGE NEEDS:: Return to SNF vs home with services and palliative care. PATIENT/FAMILY EDUCATION NEEDS:: Discharge education, limitation and follow up plan of care. Family meeting with patient and his family to include palliative particpation discharge planning. ANTICIPATED BARRIERS TO DISCHARGE:: Patients willingness to return to SNF vs home with services and support at home. TRANSPORTATION:: Pending discharge disposition. PLAN:: Dave remains in the ICU he is receiving IV antibiotics and resp support. CM coordinating a team meeting with family and palliative. CM contacted palliative care and reviewed referral. Waiting for to identified a time to meet.
--- NOTE | 2019-02-10 13:57 | INITIAL_ITS ---
- If Service Date Differs Date of service: 02/10/19 Time of Service: 13:42 Care Management Initial Assess REASON FOR HOSPITALIZATION:: HCAP, Sepsis PAST MEDICAL HISTORY/PAST SURGICAL HISTORY:: Alcohol depedence, anemia, CAD, BPH, COPD, GI bleeding, lung cancer, pulmonary retention, peripheral artery disease, tricuspid regurgitation, urinary retension. Surgical hx:Aortoifemoral bypass surgery angioplasty, EGD, and colonoscopy. PREVIOUS FUNCTIONAL STATUS/SOCIAL/FAMILY SUPPORTS:: Dave is [facility] residing [facility]. He was recently at [facility] and transition to rehab after a long acute admission. He has three sons, two sisters that are here and a friend Estefania that provide him suppport. 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 He was unable to care from himself after prolonged hospital admission and was referred to Rehab prior to returning home. CURRENT FUNCTIONAL STATUS:: Dave is sitting up in the chair he is alert and engaged during assessment. His friend Estefania is in the room whom he agrees it allowed to hear shared information about his discharge planning. Dave would prefer to return home from the hosptial he does not want to return to [facility]. CM will coordinate a team meeting with the alina and his family with palliative care to review options. Estefania states she is willing to move in with marcos to provide care and support. ADVANCE DIRECTIVES:: In Pt chart, faxed to access Has patient been provided with information about the portal?: Yes Did the patient sign up for the portal?: No CODE STATUS:: DNR/DNI INSURANCE COVERAGE / FINANCIAL ISSUES:: Medicare, medicaid CURRENT HOME/COMMUNITY SERVICES/EQUIPMENT:: [facility] hospital stay. PRIMARY CARE PHYSICIAN:: POTENTIAL DISCHARGE NEEDS:: Return to SNF vs home with services and palliative care. PATIENT/FAMILY EDUCATION NEEDS:: Discharge education, limitation and follow up plan of care. Family meeting with patient and his family to include palliative particpation discharge planning. ANTICIPATED BARRIERS TO DISCHARGE:: Patients willingness to return to SNF vs home with services and support at home. TRANSPORTATION:: Pending discharge disposition. PLAN:: Dave remains in the ICU he is receiving IV antibiotics and resp support. CM coordinating a team meeting with family and palliative. CM contacted palliative care and reviewed referral. Waiting for to identified a time to meet.
[2019-02-10] MEDS: PIPERACILLIN/TAZO 4.5 GM in Normal Saline 100 ML IVPB ×2 (14:02→21:15)
[2019-02-10] MEDS: Aspirin E.C. 81 MG TABEC PO (15:43)
[2019-02-10] MEDS: Nicotine 14 MG/24 HR PATCH TD (15:44)
[2019-02-10] MEDS: Rosuvastatin 10 MG TAB PO (19:35)
--- NOTE | 2019-02-10 20:52 | W.PM.PROGNOT ---
Date of Service Date of service: 02/10/19 Time of Service: 08:15 Assessment and Plan (1) Sepsis: Current visit: Yes Status: Acute Likely due to HCAP or possibly aspiration pneumonia. Cultures with NGTD. Continue empiric vancomycin/zosyn. Sepsis technically resolved. (2) HCAP (healthcare-associated pneumonia): Current visit: Yes Status: Acute As above. Appreciate speech therapy eval. (3) Acute and chronic respiratory failure with hypoxia: Current visit: Yes Status: Acute Treat Pneumonia, COPD exacerbation, CHF - abx, diuresis as tolerated, rate control, steroids, nebs. Wean O2 as tolerated (4) Acute exacerbation of chronic obstructive pulmonary disease (COPD): Current visit: Yes Status: Acute Treat as above. Start to taper steroids (5) Rapid atrial fibrillation: Current visit: Yes Status: Resolved Converted to NSR. On PO cardizem. Likely at least partially the cause of the acute exacerbation of CHF. Did appear to have Type 2 NSTEMI overnight due to demand of the high HR and sepsis. Continue to monitor in the ICU overnight. (6) NSTEMI (non-ST elevated myocardial infarction): Current visit: Yes Status: Acute As above (7) Acute CHF: Current visit: Yes Status: Acute On chronic. EF is 65-70% on echo, however, pulmonary pressure are impressive - 100-115 mm Hg with RV dysfunction. The patient could potentially benefit from BiPAP therapy every night and not just in the hospital - will speak with respiratory therapy Diuresis initiated. (8) Hypomagnesemia: Current visit: Yes Status: Acute Repleted (9) CAD (coronary artery disease): Current visit: Yes Status: Chronic S/p Type 2 NSTEMI overnight. We are trialing baby asa to ensure that the patient does not develop a GI bleed. No indication for plavix/heparinization. (10) H/O: GI bleed: Current visit: Yes Status: Resolved Abstaining from chemical DVT ppx. (11) Anemia: Current visit: Yes Status: Chronic H/H stable but will monitor now that asa was started (12) Ambulatory dysfunction: Current visit: Yes Status: Acute PT/OT consulted (13) Lung mass: Current visit: Yes Status: Acute Palliative care consult. (14) Discharge planning issues: Current visit: Yes Status: Acute DNR/DNI. Could possibly benefit from palliative care consultation (15) DVT prophylaxis: Current visit: Yes Status: Acute SCD's + TEDs Subjective Interval history since last seen: Mr Hyman converted to NSR overnight, and his BP's improved. He denies dizziness, chest pain, shortness of breath, nausea, vomiting. He was transitioned off BiPAP to NC. Exam Narrative Exam Narrative: General: Elderly male, sitting up in a chair, looks fantastic, A&Ox2 HEENT: EOMI, MMM Cardiovascular: RRR, +JOHNNY Lungs: Ronchi and rales Bilaterally Gastrointestinal: abdomen is soft, nontender, nondistended Genitourinary: has a edwards Extremities: 1+ BLE edema, 1+ B pedal pulses, no clubbing/cyanosis Objective Objective Clinical Data: Abnormal lab results 02/09/19 02/09/19 02/10/19 Range/Units 19:55 23:30 06:32 WBC (4.4-10.8) k/cumm RBC (4.50-6.00) m/cumm Hgb (13.5-17.5) g/dL Hct (40.0-50.0) % MCV (80-95) fL MCHC (32.0-36.0) g/dL RDW (11.8-14.1) % Absolute Lymphocytes (1.2-3.4) k/cumm Potassium 3.1 L (3.5-5.1) mmol/L Glucose 133 H (70-100) mg/dL Calcium 7.8 L (8.5-10.1) mg/dL Troponin I 0.14 H* 0.56 H* 0.80 H* (0.00-0.06) ng/mL 02/10/19 Range/Units 06:32 WBC 3.82 L D (4.4-10.8) k/cumm RBC 2.70 L (4.50-6.00) m/cumm Hgb 8.2 L (13.5-17.5) g/dL Hct 27.5 L (40.0-50.0) % MCV 101.9 H (80-95) fL MCHC 29.8 L (32.0-36.0) g/dL RDW 18.7 H (11.8-14.1) % Absolute Lymphocytes 0.25 L (1.2-3.4) k/cumm Potassium (3.5-5.1) mmol/L Glucose (70-100) mg/dL Calcium (8.5-10.1) mg/dL Troponin I (0.00-0.06) ng/mL Vital Signs Temperature 37.0 C 02/10/19 19:45 Temperature Source Tympanic 02/10/19 19:45 Pulse 79 02/10/19 20:01 Pulse 80 02/10/19 20:10 Respiratory Rate 23 02/10/19 20:10 Respiratory Effort 02/10/19 19:45 Respiratory Depth Normal 02/10/19 19:45 Respiratory Pattern Tachypnea 02/10/19 19:45 Blood Pressure 103/57 L 02/10/19 20:01 Blood Pressure Mean 69 02/10/19 20:01 Blood Pressure Position Sitting 02/10/19 16:07 Pulse Oximetry 95 02/10/19 20:10 Oxygen Delivery Method Nasal Cannula 02/10/19 19:45 Oxygen Flow Rate 4 02/10/19 19:45 Fraction of Inspired Oxygen (FIO2) 40 02/09/19 20:37 Pain Level 0 02/10/19 19:02 Comment 02/09/19 14:14 Intake & Output 02/09/19 02/10/19 02/10/19 23:59 11:59 23:59 Intake Total 1408.333 / 1408.333 958.5 / 2128.5 1170 / 2128.5 Output Total 1750 / 1750 600 / 1075 475 / 1075 Balance -341.667 / -341.667 358.5 / 1053.5 695 / 1053.5 Weight 77.4 kg Intake: IV 1408.333 / 1408.333 358.5 / 488.5 130 / 488.5 Oral 600 / 1640 1040 / 1640 Output: Urine 1750 / 1750 600 / 1075 475 / 1075 Other: Urine Color Pale Yellow Yellow Urine Appearance Clear Clear Clear Comment Indwelling edwards catheter in place and patent Edwards intact and draining clear yellow urine with sediment. Indwelling edwards catheter in place Laboratory Results WBC 3.82 k/cumm (4.4-10.8) L D 02/10/19 06:32 RBC 2.70 m/cumm (4.50-6.00) L 02/10/19 06:32 Hgb 8.2 g/dL (13.5-17.5) L 02/10/19 06:32 Hct 27.5 % (40.0-50.0) L 02/10/19 06:32 MCV 101.9 fL (80-95) H 02/10/19 06:32 MCH 30.4 pg (27.0-33.0) 02/10/19 06:32 MCHC 29.8 g/dL (32.0-36.0) L 02/10/19 06:32 RDW 18.7 % (11.8-14.1) H 02/10/19 06:32 Plt Count 243 x1000/uL (130-400) 02/10/19 06:32 MPV 9.5 fL (8.0-11.0) 02/10/19 06:32 Immature Gran % 0.0 02/10/19 06:32 Neutrophils % 83.8 02/10/19 06:32 Band Neutrophils % 2.0 % 02/09/19 14:00 Lymphocytes % 6.5 02/10/19 06:32 Monocytes % 9.4 02/10/19 06:32 Eosinophils % 0.0 02/10/19 06:32 Basophils % 0.3 02/10/19 06:32 Absolute Neutrophils 3.20 k/cumm (1.2-6.7) 02/10/19 06:32 Absolute Lymphocytes 0.25 k/cumm (1.2-3.4) L 02/10/19 06:32 Absolute Monocytes 0.36 k/cumm (0.11-0.7) 02/10/19 06:32 Absolute Eosinophils 0.00 k/cumm (0.0-0.7) 02/10/19 06:32 Absolute Basophils 0.01 k/cumm (0.0-0.2) 02/10/19 06:32 Nucleated RBCs 1 /100WBC 02/09/19 14:00 Differential Comment Manual differential 02/09/19 14:00 RBC Morphology See below 02/09/19 14:00 Polychromasia Present 02/09/19 14:00 Hypochromasia 1+ 02/09/19 14:00 Poikilocytosis 2+ 02/09/19 14:00 Basophilic Stippling Present 02/09/19 14:00 Anisocytosis 2+ 02/09/19 14:00 Microcytosis 1+ 02/09/19 14:00 Macrocytosis 2+ 02/09/19 14:00 Stomatocytes 2+ 02/09/19 14:00 PT 13.1 sec (9.3-11.0) H 02/09/19 14:00 INR 1.3 (0.9-1.1) H 02/09/19 14:00 APTT 29.2 sec (21.0-31.4) 02/09/19 14:00 Sample Site Right radial 02/09/19 15:35 pCO2 40 mmHg (34-47) 02/09/19 15:35 pO2 95 mmHg (83-108) 02/09/19 15:35 O2 Saturation 98 % (94-98) 02/09/19 15:35 ABG pH 7.48 (7.35-7.45) H 02/09/19 15:35 ABG HCO3 29 mmol/L (22-28) H 02/09/19 15:35 ABG Total CO2 27 mmol/L (22-29) 02/09/19 15:35 ABG Base Excess 5.8 mmol/L (-3-3) H 02/09/19 15:35 Oxygen Liter Flow Bipap L 02/09/19 15:35 FiO2 50 % 02/09/19 15:35 Sodium 137 mmol/L (136-145) 02/10/19 06:32 Potassium 3.1 mmol/L (3.5-5.1) L 02/10/19 06:32 Chloride 99 mmol/L (98-107) 02/10/19 06:32 Carbon Dioxide 31.0 mmol/L (21.0-32.0) 02/10/19 06:32 Anion Gap 7.0 mmol/L (3-11) 02/10/19 06:32 BUN 16 mg/dL (7-18) 02/10/19 06:32 Creatinine 1.06 mg/dL (0.70-1.30) 02/10/19 06:32 Estimated GFR/1.73 m2 >= 60.00 (mL/min/1.73m2) 02/10/19 06:32 Glucose 133 mg/dL (70-100) H 02/10/19 06:32 Lactate 1.2 mmol/l (0.6-1.4) 02/09/19 17:55 Calcium 7.8 mg/dL (8.5-10.1) L 02/10/19 06:32 Magnesium 2.2 mg/dL (1.8-2.4) 02/10/19 06:32 Total Bilirubin 0.7 mg/dL (0.2-1.0) 02/09/19 14:00 AST 16 U/L (15-37) 02/09/19 14:00 ALT 9 U/L (12-78) L 02/09/19 14:00 Alkaline Phosphatase 112 U/L (46-116) 02/09/19 14:00 Troponin I 0.80 ng/mL (0.00-0.06) H* 02/10/19 06:32 NT-Pro-B Natriuret Pep 8651 pg/mL (-299) H 02/09/19 14:00 Total Protein 7.4 g/dL (6.4-8.2) 02/09/19 14:00 Albumin 3.3 g/dL (3.4-5.0) L 02/09/19 14:00 Triglycerides 50 mg/dL (30-150) 02/10/19 06:32 Total Cholesterol 106 mg/dL (50-200) 02/10/19 06:32 LDL Cholesterol Direct 59 mg/dL (<100) 02/10/19 06:32 HDL Cholesterol 43 mg/dL (40-60) 02/10/19 06:32 TSH 0.57 uIU/mL (0.358-3.74) 02/10/19 06:32 Urine Color Yellow (Yellow) 02/09/19 15:00 Urine Clarity Clear 02/09/19 15:00 Urine pH 6.0 (5-8) 02/09/19 15:00 Ur Specific [place] 1.015 (1.005-1.025) 02/09/19 15:00 Urine Protein 100 mg/dL (Negative) H 02/09/19 15:00 Urine Ketones Negative mg/dL (Negative) 02/09/19 15:00 Urine Blood Trace-intact (Negative) H 02/09/19 15:00 Urine Nitrite Negative (Negative) 02/09/19 15:00 Urine Bilirubin Negative (Negative) 02/09/19 15:00 Urine Urobilinogen 0.2 EU/dL (Up TO 0.2) 02/09/19 15:00 Ur Leukocyte Esterase Negative (Negative) 02/09/19 15:00 Urine RBC 0-2 (0-2) 02/09/19 15:00 Urine WBC 0-2 HPF (0-5) 02/09/19 15:00 Ur Epithelial Cells Rare HPF (Negative) 02/09/19 15:00 Urine Crystals Negative HPF (Negative) 02/09/19 15:00 Urine Bacteria Rare HPF (Negative) 02/09/19 15:00 Urine Casts 0-2 hyaline LPF (Negative) 02/09/19 15:00 Urine Mucus Trace (Negative) 02/09/19 15:00 Urine Other Rare renal (Negative) 02/09/19 15:00 Ur Culture Indicated? No 02/09/19 15:00 Urine Glucose Negative mg/dL (Negative) 02/09/19 15:00 Path Cons Comment See comment 02/09/19 14:00 Patient ABO/Rh A Positive 02/09/19 19:55 Antibody Screen Negative 02/09/19 19:55 CXR: When compared with the previous examination, interval deterioration is demonstrated. The findings would be consistent with an acute pneumonitis. Again suggested is the possibility of a left upper lobe mass and the possibility of superimposed congestive failure could not be excluded.
[2019-02-11] VITALS (63 sets, daily range): BP systolic 99–148; BP diastolic 44–82; PULSE 52–92; RESP 2–26; TEMP 36.3–36.9; O2SAT 86–99
[2019-02-11] MEDS: methylPREDNISolone SUCC 125 MG VIAL 60 MG IVP ×2 (05:28→13:46)
[2019-02-11] MEDS: PIPERACILLIN/TAZO 4.5 GM in Normal Saline 100 ML IVPB ×3 (05:28→21:52)
[2019-02-11] MEDS: Normal Saline Flush 10 ML SYR IVP ×4 (05:28→20:49)
[2019-02-11] MEDS: oxyCODONE 5 MG TAB PO ×3 (05:28→18:29)
[2019-02-11] MEDS: Albuterol 2.5 MG/3 ML INH SOLN VIAL UPD (05:54)
[2019-02-11] MEDS: Furosemide 40 MG/4 ML VIAL IVP (06:36)
[2019-02-11 07:01] LABS: Abs Immature Grans 0.01 k/cumm (0.0-0.09); Absolute Lymphocyte Count 0.41 k/cumm (1.2-3.4); Absolute Monocyte Count 0.54 k/cumm (0.11-0.7); Absolute Neutrophil Count 3.68 k/cumm (1.2-6.7); HGB 8.4 g/dL (13.5-17.5); Immature Grans % 0.2; Lymphocytes % 8.8; Mean Corpuscular Hemoglobin 30.4 pg (27.0-33.0); Mean Corpuscular Volume 101.4 fL (80-95); Mean Platelet Volume 9.7 fL (8.0-11.0); Monocytes % 11.6; Neutrophils % 79.4; Platelet Count 234 x1000/uL (130-400); RBC 2.76 m/cumm (4.50-6.00); RBC Distribution Width 18.7 % (11.8-14.1); White Blood Cell Count 4.64 k/cumm (4.4-10.8)
[2019-02-11 07:23] LABS: Anion Gap 9.4 mmol/L (3-11); BUN 27 mg/dL (7-18); CO2 27.6 mmol/L (21.0-32.0); CREATININE 1.19 mg/dL (0.70-1.30); Calcium 7.5 mg/dL (8.5-10.1); Chloride 100 mmol/L (98-107); Estimated GFR 59.44 (mL/min/1.73m2); Glucose 145 mg/dL (70-100); Magnesium 1.9 mg/dL (1.8-2.4); Potassium 3.5 mmol/L (3.5-5.1); Sodium 137 mmol/L (136-145)
[2019-02-11 07:34] LABS: Troponin I 0.69 ng/mL (0.00-0.06)
[2019-02-11] MEDS: Pantoprazole 40 MG VIAL IVP ×2 (09:31→20:47)
[2019-02-11] MEDS: Tamsulosin 0.4 MG CAPCR 0.8 MG PO (09:32)
[2019-02-11] MEDS: Polyethylene Glycol 3350 17 GM PACKET PO (09:32)
[2019-02-11] MEDS: Allopurinol 300 MG TAB PO (09:33)
[2019-02-11] MEDS: Ferrous Sulfate 325 MG TAB PO ×2 (09:33→20:48)
[2019-02-11] MEDS: Sucralfate 1 GM TAB PO ×3 (09:33→21:53)
[2019-02-11] MEDS: Folic Acid 1 MG TAB PO (09:33)
[2019-02-11] MEDS: Aspirin E.C. 81 MG TABEC PO (09:33)
[2019-02-11] MEDS: Docusate Sodium 100 MG CAP PO ×2 (09:33→20:48)
[2019-02-11] MEDS: Multivitamin TAB 1 TAB PO (09:33)
[2019-02-11] MEDS: Thiamine 100 MG TAB PO (09:33)
[2019-02-11] MEDS: Senna TAB 1 TAB PO (09:33)
[2019-02-11] MEDS: Gabapentin 300 MG CAP PO ×3 (09:33→20:48)
[2019-02-11] MEDS: dilTIAZem 30 MG TAB PO ×3 (09:33→20:48)
[2019-02-11] MEDS: Calcium 600mg/Vit D 200U TAB 1 TAB PO ×3 (09:33→20:48)
[2019-02-11] MEDS: Finasteride 5 MG TAB PO (09:34)
[2019-02-11] MEDS: Nicotine 14 MG/24 HR PATCH TD (09:34)
[2019-02-11] MEDS: Metoprolol CR 50 MG TABCR PO (09:34)
[2019-02-11] MEDS: Primidone 50 MG TAB PO ×3 (09:34→20:48)
[2019-02-11] MEDS: Lidocaine 5% Patch 1 PATCH TD (09:35)
--- NOTE | 2019-02-11 10:15 | PNE_ITS ---
Date of service: 02/11/19 Time of Service: 09:15 Speech Therpy Note Note: SUBJECTIVE The patient (pt) is now sitting in his chair after being cleaned up by nursing due to significalnt diarrhea. He greets me with good direct eye contact. OBJECTIVE Nursing reports: - T: 36.5 - O2 sat: 96 on 4 L via NC - LS: bilateral (B) crackles in the presence of ABX - Meal % for 02/10/19: - Lunch: 75%, - Supper: 100% Pt willing to take his morning pills. He has 15 different pills per nursing r eport. He is observed to take multiple whole small & medium-sized pills at one time with a Thin liquid wash (via straw). He shows good bolus control & posterior oral transit; no abran s/s aspiration/penetration; oral clearance 100%; no oral escape. He shows the same results when taking single large-sized whole pills, again, with a Thin liquid wash (via straw). Pt had eaten a portion of his breakfast (Dysphagia Advanced food) prior to the bout of diarrhea, but is unwilling to finish his meal at this visit after having his pills. He states he has had no foods thus far that he felt he couldn't chew well. ASSESSMENT Pt, again, shows no clinical signs of a pharyngeal dysphagia. He appears to be tolerating his current p. o. consistencies. PLAN 1. Continue current p.o. consistencies of Thin liquids, a Dysphagia Advanced diet with chopped meats, and whole pills with a liquid wash. 2. Continue independent self-feeding. 3. Discontinue speech therapy for swallowing at this time. Pt is agreeable.
--- NOTE | 2019-02-11 10:53 | PT.INIE ---
Date of service: 02/10/19 Time of Service: 12:59 PT Notes Inpatient Physical Therapy Evaluation Date: 02/10/2019 Referring Doctor: Ninfa Hanson MD PT Orders: PT CONSULT: Eval and treat Precautions: Fall. Standard. Patient Profile/Admitting Diagnosis: Patient is a 78-year-old male who was transferred from the [facility] to the ED with complaints of shortness of breath, he was hypoxic even at his baseline oxygen supplementation of 3 L/min. Patient was diagnosed to have right lower lobe pneumonia and acute exacerbation of congestive heart failure referral was received today for mobilization, functional mobility training, gait and balance training, and progressive strengthening in anticipation of return home at safest mobility level. 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 He states he has grab bars in the toilet area and in the shower. Equipment Owned/DME: FW W, 4 WW Subjective: Patient is cooperative although mildly confused. He is agreeable to a PT consult. He states that he does not plan to go back to the health and rehab but hopes to go home from here. According to him he has family living close by who are able to help with meals and laundry as needed. Objective: General Observation: Patient seen sitting on his chair telemetry on, IV on right UE, oxygen supplementation via nasal cannula at 4 L/min. Grade 2 pitting edema noted on bilateral lower extremities and feet, MENDEZ stockings on bilateral legs. Mental Status: Alert and oriented as to person and place, mildly confused but pleasant and able to follow instructions with moderate verbal cueing Pain: 0/10 ROM: Right Upper Extremity: WFL Left Upper Extremity: WFL Right Lower Extremity: WFL Left Lower Extremity: WFL Strength: Right Upper Extremity: WFL Left Upper Extremity: WFL Right Lower Extremity: Hip flexors 4/5. Hip extensors 4-/5. Knee extensors 4-/5. Knee flexors 4+/5. Ankle dorsiflexors 4+/5. Ankle plantarflexors 4+/5. Left Lower Extremity: Hip flexors 4/5. Hip extensors 4-/5. Knee extensors 4-/5. Knee flexors 4+/5. Ankle dorsiflexors 4+/5. Ankle plantarflexors 4+/5. Sensation: Intact to B LE chest pain and pressure Bed Mobility/Transfers: Rolling minimal assist Supine to sit minimal assist Sit to supine minimal assist Sit to stand minimal assist Stand to sit minimal assist Bed to chair minimal assist Chair to bed minimal assist Gait: Patient completed level surface ambulation with FW x 2 W with minimal assist provided for 5 feet with oxygen saturation going down to 88% but went back up to 94% with rest and deep breathing activity. Balance: Static Sitting: Good Dynamic Sitting: Good Static Standing: Fair Dynamic Standing: Fair Special Tests: Mobility Limitations Standardized Measure [facility] AM-PAC 6 clicks Basic Mobility Inpatient Short Form: Raw Score: 17 CMS Score: 50% deficit Informed Consent/Education: Patient instructed in purpose of PT consult and plan of care. Patient was also instructed on deep breathing exercises in order to facilitate return of oxygen saturation to above normal limits and to maximize exercise performance. Assessment: Patient is a 78 year old male referred to physical therapy services with the diagnosis lower lobe pneumonia, acute exacerbation of CHF, and limited activity tolerance. Patient presents with clinical signs and symptoms consistent with current/admitting diagnoses that has resulted to mobility limitations, gait instability, generalized weakness, and lack of motor control as demonstrated by the following impairment level findings: 1. Decreased strength to B LE major muscle groups 2. Impaired balance 3. Impaired activity tolerance Impairments are contributing to the following functional limitations: 1. Decreased bed mobility skills 2. Increased dependence with transfers 3. Inability to safely ambulate without assistive device and physical assistance 4. Increase completion time for mobility ADL performance 5. Increased fall risk 6. Inability to negotiate steps alone safely Patient is assessed as a Moderate [id number] complexity based on the following: History: 78-year-old male with diagnosis of right lower lobe pneumonia acute on chronic CHF and hypoxia with limited activity tolerance, comorbidities and past medical history as indicated above Examination: Underlying impairments and functional deficits have resulted to an AMPA score of 17 with an equivalent CMS score of 50% deficit Presentation: Evolving Decision Makin moderate complexity Goals: Goals X1 week 1. Supine-Sit independent 2. Sit-Supine independent 3. Sit-Stand independent 4. Stand-Sit independent 5. Bed-Chair independent 6. Chair-Bed independent 7. Gait on level surface ambulation with use of least restrictive device for at least 200 feet without report of pain nor dyspnea 8. Stairs independent while holding onto bilateral rails for at least 5 steps without report of pain nor dyspnea 9. Independent with home exercise program 10. Balance good for static and dynamic standing Plan of Care/Treatment Plan: 1-2x/day, 7 days/week x 1 week. Plan of care has been reviewed with the MARKETING OPERATIONS MANAGER providing the service under Physical Therapy direction. Initiate Physical Therapy intervention for strengthening, bed mobility, transfers, gait, stairs, balance training, use of assistive device. DISCHARGE RECOMMENDATIONS: Patient will benefit from short-term home health PT services in order to facilitate a smoother transition to home, continue with progressing endurance level, improve functional mobility level, maximize home safety, and establish a functional maintenance program. TREATMENT CODE/TIME: 22979 20 minutes, 86229 15 minutes beginning at 12:59 PM. Thank you for this referral. Funmilayo Woodard, PT, DPT, CLT [facility]
[2019-02-11] MEDS: Budesonide/Formoterol 160/4.5 6 GM 60 PUFF INH IH ×2 (11:09→20:58)
--- NOTE | 2019-02-11 12:52 | PCNE_ITS ---
Date of service: 02/11/19 Time of Service: 09:51 History of Present Illness Chief Complaint: Difficulty breathing Consults Consult date: 02/11/19 Requesting physician: Ninfa Hanson Assessment and Plan (1) NSTEMI (non-ST elevated myocardial infarction): Current visit: Yes Status: Acute (2) Lung mass: Current visit: Yes Status: Acute (3) Acute exacerbation of chronic obstructive pulmonary disease (COPD): Current visit: Yes Status: Acute (4) Anemia: Current visit: Yes Status: Chronic (5) HCAP (healthcare-associated pneumonia): Current visit: Yes Status: Acute (6) Pulmonary hypertension: Current visit: Yes Status: Acute (7) Palliative care encounter: Current visit: Yes Status: Acute I spoke with Dave for a long time about his conditions. I went through some individual conditions such as his pulmonary hypertension, cardiac status, echo results, pulmonary difficulties. I asked him how he thought all of these different conditions affected his health individually and collectively. He states that he is just fine and his only goal is to go home. He wants to go home. He states states that there is a woman who will live with him and take care of him. His children have stated that they are not able to do this. He does not feel that he needs to go to a rehab. We feel he feels he can take care of himself. He thinks he will live for 2-3 more years. He does not think that his condition is at all in a minute. I did bring up hospice as I do feel that he would qualify. He was not interested in this. He was interested in home health. I did complete a [place] LST form. He is a DNR DNR. I will put the form on file at [facility] and also [facility] Unfortunately his insight is extremely poor and because of this I do not see that he is willing to consider help other than his present plans. I will stop back in and speak with him within the next few days. I have spent more than 50% of time in counseling with this patient. This document was created by [employer] and may contain grammatical and translation errors. Review of Systems Constitutional Reports daytime sleepiness, Reports difficulty sleeping, Reports fatigue, Reports fever(s), Reports lethargy and Reports weakness Eyes Reports system reviewed and no additional complaints, except as docu ENT Reports dizziness Cardiovascular Denies chest pain at rest, Reports lightheadedness, Reports palpitations, Reports dyspnea and Reports dyspnea on exertion Respiratory Reports chest congestion, Reports cough, Reports dyspnea, Reports dyspnea on exertion and Reports wheezing Gastrointestinal Reports system reviewed and no additional complaints, except as docu Musculoskeletal Reports myalgias and Reports arthralgias Neurologic Reports dizziness and Reports weakness Psychiatric Reports abnormal sleep pattern Endocrine Reports fatigue and Reports palpitations Allergic/Immunologic Reports wheezing [facility] Medical History Alcohol dependence (Chronic) Ambulatory dysfunction (Chronic) Anemia, iron deficiency (Chronic) Atrial fibrillation (Chronic) BPH (benign prostatic hyperplasia) (Chronic) CAD (coronary artery disease) (Chronic) COPD (chronic obstructive pulmonary disease) (Chronic) Chronic combined systolic and diastolic CHF (congestive heart failure) (Chronic) Chronic respiratory failure with hypoxia (Chronic) Gastritis (Chronic) Gout (Chronic) Lung cancer (Chronic) PAD (peripheral artery disease) (Chronic) Pulmonary hypertension (Chronic) Tricuspid regurgitation (Chronic) Urinary retention (Chronic) Vertebral compression fracture (Chronic) GI hemorrhage (Resolved) Pneumonia (Resolved) Surgical History H/O angioplasty (Chronic) History of esophagogastroduodenoscopy (EGD) (Chronic) Hx of colonoscopy (Chronic) S/P aortobifemoral bypass surgery (Chronic) Social History Smoking/Tobacco Use Status: Former Tobacco Use Alcohol Intake: former Drug use: Never Details: [t short of breath non verbal Do you feel safe at home: Yes Do you feel safe in your relationship?: Yes Exam Narrative Exam Narrative: Dave is sitting in his chair. He has his oxygen in place. He is speaking in 2-4 word sentences. He does not look me in the eye during our entire conversation. His oxygenation does decrease dramatically when he takes his oxygen off to play with the ear pieces. His heart rate is in the 70s. His blood pressure is stable and in the normal range. His heart is difficult to hear there is a loud murmur with. There is not a lot of air movement but definite wheezes. His abdomen is thin nontender. He does have clubbing of his fingers Psych Appearance: disheveled Speech and Movement: delayed speech Mood: dysthymic mood Attitude: avoids eye contact Thought Process: illogical and impoverished Thought Content: other Insight: poor Judgment: poor Results Last Vital Signs Temp 97.7 F 02/11/19 00:30 Pulse 74 02/11/19 06:01 Resp 19 02/11/19 06:40 BP 137/61 02/11/19 06:01 Pulse Ox 96 02/11/19 06:40 Labs : 02/12/19 06:15 02/12/19 06:15 Laboratory Results - last 24 hr 02/09/19 02/11/19 02/11/19 14:00 06:30 06:30 WBC 4.64 RBC 2.76 L Hgb 8.4 L Hct 28.0 L MCV 101.4 H MCH 30.4 MCHC 30.0 L RDW 18.7 H Plt Count 234 MPV 9.7 Immature Gran % 0.2 Neutrophils % 79.4 Lymphocytes % 8.8 Monocytes % 11.6 Eosinophils % 0.0 Basophils % 0.0 Absolute Neutrophils 3.68 Absolute Lymphocytes 0.41 L Absolute Monocytes 0.54 Absolute Eosinophils 0.00 Absolute Basophils 0.00 Sodium 137 Potassium 3.5 Chloride 100 Carbon Dioxide 27.6 Anion Gap 9.4 BUN 27 H D Creatinine 1.19 Estimated GFR/1.73 m2 59.44 Glucose 145 H Calcium 7.5 L Magnesium 1.9 Troponin I 0.69 H* Path Cons Comment See comment atient Name: Celestino PAYNE #: [id number]: ICU Ordering Provider: Vasu Shin M.D. : ADM IN Primary Care Provider: kIe Godoy Date of Exam: 02/09/19Sex: M : 2Age: 78 Exam(s) a CT:CT chest PE CTA SYMPTOM/DIAGNOSIS: HYPOXIA, LUNG CA, ? PE PE CHEST CT: CT angiography was performed with multi slice acquisition and multi planar and 3D reconstruction. The study was conducted according to the usual protocol with an intravenous administration of 69 cc's of Omnipaque 350. There are atherosclerotic changes involving the aorta without evidence of an aneurysm. There is a 4 by 3 by 4.4 cm. mass density with ill defined margins in the left upper lobe. Also noted is made of patchy and somewhat nodular air space disease scattered throughout the right lung and left lower lobe. Small bilateral pleural effusions are associated with atelectasis. The heart is mildly enlarged and coronary artery calcification is demonstrated. In the upper abdomen, note is made of a nodular liver, the findings consistent with cirrhosis. There is mild adenopathy in the mediastinum and brad. The bony structures are unremarkable. Note is also made in this patient of apparent bilateral gynecomastia. SUMMARY: Mild mediastinal hilar adenopathy. No evidence of pulmonary embolic disease. Bilateral small pleural effusions. There is a 4 by 3 by 4.4 cm. apparent mass density with ill defined margins in the left upper lobe. Note is also made of mild patchy somewhat nodular air space disease throughout the right lung and left lower lobe. The appearance of the liver would be consistent with cirrhosis. [id number]: T Patient Name: Celestino PAYNE #: [id number]: ICU Ordering Provider: Ninfa Hanson M.D. : ADM IN Primary Care Provider: Ike Godoy Date of Exam: 02/10/19Sex: M : 2Age: 78 Exam(s) a US:US echocardiogram *[facility]* *[facility]* [address] [place] [address] Date of study: 02/10/2019 Transthoracic Echocardiography M-mode, complete 2D, complete spectral Doppler, and color Doppler *STUDY CONCLUSIONS* Summary: 1. Left ventricle: The cavity size was normal. Systolic function was hyperdynamic. The estimated ejection fraction was 65-70%. Some parameters suggest diastolic dysfunction. Doppler parameters are consistent with high ventricular filling pressure. Stroke volume/bsa (LVOT, Doppler): 26ml/m^2. 2. Ventricular septum: The contour showed diastolic flattening and systolic flattening. These changes are consistent with RV volume and RV pressure overload. 3. Aortic valve: There was moderate stenosis. Peak velocity (S): 2.1m/sec. Mean gradient (S): 10.6mm Hg. Valve area (VTI): 1.3cm^2. Indexed valve area (Vmean): 0.6cm^2/m^2. 4. Mitral valve: Mildly calcified annulus. There was moderate to severe regurgitation. 5. Left atrium: The atrium was severely dilated. 6. Right ventricle: The cavity size was mildly dilated. Systolic function was moderately reduced. 7. Right atrium: The atrium was severely dilated. 8. Atrial septum: No defect or patent foramen ovale was identified. 9. Tricuspid valve: There was severe regurgitation. 10. Pulmonic valve: There was moderate regurgitation. 11. Pulmonary arteries: Pulmonary systolic pressure was in the range of 100mm Hg to 115mm Hg. 12. Inferior vena cava: The vessel was patent and normal in size. The respirophasic diameter changes were in the normal range (greater than or equal to 50%), consistent with normal central venous pressure.
--- NOTE | 2019-02-11 13:24 | OTIE_ITS ---
Occupational Therapy Notes Inpatient Occupational Therapy Evaluation Date: 02/11/19 Referring Doctor: Ninfa Hanson MD OT Orders: Eval and Treat Precautions: Fall and Contact PATIENT PROFILE/ADMITTING DIAGNOSIS: Pt is a 78 year old male who was recently a resident at the [facility] rehab. He was admitted through the ER for shortness of breath and hypoxia. He was later found to be positive to MRSA with lower lobe pneumonia. 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 He reports that he does not drive or receive services through [facility]. At baseline pt reports that he is (I) with all ADLs/IADLs and does not need help. Equipment owned/DME: Grab bars in shower. SUBJECTIVE: Pt was sitting in the chair when OT arrived. He was agreeable to OT consult but was not receptive to evaluation process. He reports he would like to eat his breakfast. When OT asks if it would be better later on pt reports that he just wants to get it over with. OBJECTIVE: General Observation: Pt was agitated. He was not receptive to any education or training at todays session. He answered questions as minimal as possible. Telemetry, SaO2 monitor, BP cuff. Mental Status: A&Ox2 Pain: no c/o pain ROM: Based on pts functional movements on a visual examination, pts (B) UE are WFL. STRENGTH: Pt would not let OT assess FUNCTIONAL MOBILITY/ADLS: BATHING Performed prior to OT session with nursing DRESSING Performed prior to OT session with nursing GROOMING NT pt denies TOILETING NT pt denies EATING Pt was sitting in chair he had good trunk control and functional stability. Pt was presenting with good grasp on utensil and difficulty with cutting food on his plate. OT discussed this with pt who states Well nobody else is going to cut my food and I don't know why anyone would care. BALANCE: Static sitting Normal Dynamic Sitting Normal Static Standing NT Dynamic Standing NT SPECIAL TESTS: Daily Activity Limitations Standardized Measure [facility] AM -PAC ?6 clicks? Daily Activity Inpatient Short Form: Raw score: 16 INFORMED CONSENT/EDUCATION: Pt instructed in purpose of OT Consult and plan of care. ASSESSMENT: Patient is a 78-year-old male referred to occupational therapy services with diagnosis of lower lobe pneumonia, acute exacerbation of COPD and deconditioning. Patient presents with clinical signs and symptoms consistent with dx, as demonstrated by the following impairment level findings/functional limitations: decreased (I) in functional activity tolerance, decreased (I) in functional mobility, decreased strength in UE based on examination. OT was really unable to perform a full assessment on pt as pt was not willing to perform any ROM or strength assessment. Patient is assessed as a Moderate 10158 complexity based on the following: History: See Above Examination: See Above Presentation: Evolving Decision Making: Moderate based on examination GOALS Goals x1 week in hospital setting 1. Transfers (I) 2. Dressing sitting in chair (I) with UE/LE dressing 3. Bathing Standing at sink pt will be able to wash face (I), sitting in chair pt will be able to wash UE/LE (I) 4. Toileting on toilet (I) 5. Eating (I) 6. Brushing teeth (I) standing at sink PLAN OF CARE/TREATMENT PLAN: 1x/day, 5 days/ week x 1week Initiate Occupational Therapy Services for bathing, dressing, grooming, toileting, eating, transfer training. DISCHARGE RECOMMENDATIONS OT was really unable to make a consistent judgement based on evaluation as pt was not agreeable to most of OT consult. Based on what OT was able to assess, OT does recommend that pt go to SNF for short term stay as pt is presenting with decreased functional (I) in ADLs/IADLs vs. home with home health services for assessment of ADLs in home setting. TREATMENT TIME/MINUTES/CODES 44496, 20 minutes (08:35) Sheela Oneil OTR/[facility]
[2019-02-11 14:02] LABS: Vancomycin, Trough 20.7 ug/mL (10.0-20.0)
--- NOTE | 2019-02-11 15:52 | PDOC.CMPRO ---
- If Service Date Differs Date of service: 02/11/19 Time of Service: 15:52 Care Management Progress Note S/O: Dave remains ICU level of care today. He was able to complete his COLST with (Palliative) He wants to return home however his sisters no not feel that he would be able to care for himself at home. He does have a friend that would be willing to stay with him however unsure if that is a solid plan. Family meeting with assist in determining discharge disposition. CM contacted sisters and provided update. A:Dave is a 78 year old male admitted with health care acquired pneumonia to the ICU. P:Dave remains in the ICU he is receiving IV antibiotics and resp support. CM coordinating a team meeting with family they would like to meet at 1300 on Thursday. Palliative to continue to provide support, note is not available at time of CM note. Anticipate Dave will return to [facility] when medically ready.
--- NOTE | 2019-02-11 15:58 | CMPROGNOTE_ITS ---
- If Service Date Differs Date of service: 02/11/19 Time of Service: 15:52 Care Management Progress Note S/O: Dave remains ICU level of care today. He was able to complete his COLST with (Palliative) He wants to return home however his sisters no not feel that he would be able to care for himself at home. He does have a friend that would be willing to stay with him however unsure if that is a solid plan. Family meeting with assist in determining discharge disposition. CM con tacted sisters and provided update. A:Dave is a 78 year old male admitted with health care acquired pneumonia to the ICU. P:Dave remains in the ICU he is receiving IV antibiotics and resp support. CM coordinating a team meeting with family they would like to meet at 1300 on Thursday. Palliative to continue to provide support, note is not available at time of CM note. Anticipate Dave will return to [facility] when medically ready.
--- NOTE | 2019-02-11 16:30 | PT.INTREAT ---
Date of service: 02/11/19 Time of Service: 16:30 PT Notes Inpatient Physical Therapy Treatment Note [facility] Date: 02/11/19 PRECAUTIONS: Fall SUBJECTIVE: Dave is agreeable to participating in PT in afternoon, although states he still hasn't gotten much rest. OBJECTIVE: PAIN: No complaints of pain BED MOBILITY/TRANSFERS Supine-sit: I Sit-supine: I Sit-stand: S Stand-sit: S GAIT Assistive Device: FWW Weight bearing: Full Assist: CGA Distance: 20' x2 Static standing x10 minutes with FWW and SBA THEREX: Patient completed a lower extremity strengthening program, as per flow sheet. ASSESSMENT: Patient tolerated session without complaint. He was able to tolerate a progression in gait distance with FWW support and CGA. Patient would benefit from continued gait and transfer training as well as strengthening for improved mobility and improved activity tolerance. PLAN: Continue with PTs POC TREATMENT CODE/TIME: 30 minutes; [id number], [id number]
--- NOTE | 2019-02-11 18:08 | PGE_ITS ---
Date of Service Date of service: 02/11/19 Time of Service: 08:25 Assessment and Plan (1) Sepsis: Current visit: Yes Status: Acute Likely due to HCAP or possibly aspiration pneumonia. Cultures with NGTD. Continue empiric vancomycin/zosyn (day 3). Sepsis technically resolved. (2) HCAP (healthcare-associated pneumonia): Current visit: Yes Status: Acute As above. Appreciate speech therapy eval. (3) Acute and chronic respiratory failure with hypoxia: Current visit: Yes Status: Acute Treat Pneumonia, COPD exacerbation, CHF - abx, diuresis as tolerated, rate control, steroids, nebs. Wean O2 as tolerated Patient's pulmonary status is highly dependent on his volume status due to his very severe pulmonary hypertension (4) Acute exacerbation of chronic obstructive pulmonary disease (COPD): Current visit: Yes Status: Acute Treat as above. Continue steroid taper (5) Rapid atrial fibrillation: Current visit: Yes Status: Resolved Converted to NSR. On PO cardizem. Likely at least partially the cause of the acute exacerbation of CHF. Did appear to have Type 2 NSTEMI overnight due to demand of the high HR and sepsis. Continue to monitor in the ICU one more night (6) NSTEMI (non-ST elevated myocardial infarction): Current visit: Yes Status: Acute As above On asa, carefully watching H/H (h/o GI bleed) (7) Acute CHF: Current visit: Yes Status: Acute On chronic. EF is 65-70% on echo, however, pulmonary pressure are impre ssive - 100-115 mm Hg with RV dysfunction. The patient could potentially benefit from BiPAP therapy every night and not just in the hospital. (8) Hypomagnesemia: Current visit: Yes Status: Acute Repleted (9) CAD (coronary artery disease): Current visit: Yes Status: Chronic S/p Type 2 NSTEMI. Continue asa. No indication for plavix/heparinization. (10) H/O: GI bleed: Current visit: Yes Status: Resolved Abstaining from chemical DVT ppx. (11) Anemia: Current visit: Yes Status: Chronic H/H stable - monitor on asa (12) Ambulatory dysfunction: Current visit: Yes Status: Acute PT/OT consulted (13) Lung mass: Current visit: Yes Status: Acute Palliative care consult. (14) Discharge planning issues: Current visit: Yes Status: Acute DNR/DNI. Likely qualifies for hospice at this point - be that at home vs SNF. I am not sure the patient can safely return home. (15) DVT prophylaxis: Current visit: Yes Status: Acute SCD's + TEDs Subjective Interval history since last seen: Overnight, Mr Hyman became more short of breath and required more BiPAP therapy, bolus and an increased rate of lasix gtt. This morning, he feels less short of breath, but states the breathing is still bothering him. He states he hasn't been coughing. Denies dizziness, chest pain, nausea, vomiting. Exam Narrative Exam Narrative: General: Elderly male, sitting up in a chair, looks like he is working a little bit to breathe, A&Ox2 HEENT: EOMI, MMM Cardiovascular: RRR, +JOHNNY Lungs: Ronchi and rales Bilaterally - overall, sounds better Gastrointestinal: abdomen is soft, nontender, nondistended Genitourinary: has a edwards Extremities: 1+ BLE edema, 1+ B pedal pulses, no clubbing/cyanosis Objective Objective Clinical Data: Abnormal lab results 02/11/19 02/11/19 02/11/19 Range/Units 06:30 06:30 13:10 RBC 2.76 L (4.50-6.00) m/cumm Hgb 8.4 L (13.5-17.5) g/dL Hct 28.0 L (40.0-50.0) % MCV 101.4 H (80-95) fL MCHC 30.0 L (32.0-36.0) g/dL RDW 18.7 H (11.8-14.1) % Absolute Lymphocytes 0.41 L (1.2-3.4) k/cumm BUN 27 H D (7-18) mg/dL Glucose 145 H (70-100) mg/dL Calcium 7.5 L (8.5-10.1) mg/dL Troponin I 0.69 H* (0.00-0.06) ng/mL Vancomycin Trough 20.7 H* (10.0-20.0) ug/mL Vital Signs Temperature 36.9 C 02/11/19 16:39 Temperature Source Temporal Artery Scan 02/11/19 11:40 Pulse 62 02/11/19 16:01 Pulse 62 02/11/19 16:01 Respiratory Rate 21 02/11/19 16:01 Respiratory Effort Incrsd Work of Breathing 02/11/19 16:39 Respiratory Depth Normal 02/11/19 16:39 Respiratory Pattern Normal 02/11/19 16:39 Blood Pressure 105/44 L 02/11/19 16:01 Blood Pressure Mean 60 02/11/19 16:01 Blood Pressure Position Sitting 02/10/19 16:07 Pulse Oximetry 92 L 02/11/19 16:01 Oxygen Delivery Method Nasal Cannula 02/11/19 11:40 Oxygen Flow Rate 4 02/11/19 11:40 Fraction of Inspired Oxygen (FIO2) 40 02/09/19 20:37 Pain Level 0 02/11/19 11:40 Comment 02/09/19 14:14 Intake & Output 02/10/19 02/11/19 02/11/19 23:59 11:59 23:59 Intake Total 1520 / 2478.5 879.458 / 1280.958 401.5 / 1280.958 Output Total 475 / 1075 2900 / 4600 1700 / 4600 Balance 1045 / 1403.5 -2020.542 / -3319.042 -1298.5 / -3319.042 Weight 83.8 kg Intake: IV 480 / 838.5 399.458 / 440.958 41.5 / 440.958 Oral 1040 / 1640 480 / 840 360 / 840 Output: Urine 475 / 1075 2900 / 4600 1700 / 4600 Other: Urine Color Yellow Pale Pale Yellow Urine Appearance Clear Clear Clear Comment Indwelling edwards catheter in place Indwelling edwards catheter in place. Lasix gtt running. edwards draining clear straw colored urine Laboratory Results WBC 4.64 k/cumm (4.4-10.8) 02/11/19 06:30 RBC 2.76 m/cumm (4.50-6.00) L 02/11/19 06:30 Hgb 8.4 g/dL (13.5-17.5) L 02/11/19 06:30 Hct 28.0 % (40.0-50.0) L 02/11/19 06:30 MCV 101.4 fL (80-95) H 02/11/19 06:30 MCH 30.4 pg (27.0-33.0) 02/11/19 06:30 MCHC 30.0 g/dL (32.0-36.0) L 02/11/19 06:30 RDW 18.7 % (11.8-14.1) H 02/11/19 06:30 Plt Count 234 x1000/uL (130-400) 02/11/19 06:30 MPV 9.7 fL (8.0-11.0) 02/11/19 06:30 Immature Gran % 0.2 02/11/19 06:30 Neutrophils % 79.4 02/11/19 06:30 Band Neutrophils % 2.0 % 02/09/19 14:00 Lymphocytes % 8.8 02/11/19 06:30 Monocytes % 11.6 02/11/19 06:30 Eosinophils % 0.0 02/11/19 06:30 Basophils % 0.0 02/11/19 06:30 Absolute Neutrophils 3.68 k/cumm (1.2-6.7) 02/11/19 06:30 Absolute Lymphocytes 0.41 k/cumm (1.2-3.4) L 02/11/19 06:30 Absolute Monocytes 0.54 k/cumm (0.11-0.7) 02/11/19 06:30 Absolute Eosinophils 0.00 k/cumm (0.0-0.7) 02/11/19 06:30 Absolute Basophils 0.00 k/cumm (0.0-0.2) 02/11/19 06:30 Nucleated RBCs 1 /100WBC 02/09/19 14:00 Differential Comment Manual differential 02/09/19 14:00 RBC Morphology See below 02/09/19 14:00 Polychromasia Present 02/09/19 14:00 Hypochromasia 1+ 02/09/19 14:00 Poikilocytosis 2+ 02/09/19 14:00 Basophilic Stippling Present 02/09/19 14:00 Anisocytosis 2+ 02/09/19 14:00 Microcytosis 1+ 02/09/19 14:00 Macrocytosis 2+ 02/09/19 14:00 Stomatocytes 2+ 02/09/19 14:00 PT 13.1 sec (9.3-11.0) H 02/09/19 14:00 INR 1.3 (0.9-1.1) H 02/09/19 14:00 APTT 29.2 sec (21.0-31.4) 02/09/19 14:00 Sample Site Right radial 02/09/19 15:35 pCO2 40 mmHg (34-47) 02/09/19 15:35 pO2 95 mmHg (83-108) 02/09/19 15:35 O2 Saturation 98 % (94-98) 02/09/19 15:35 ABG pH 7.48 (7.35-7.45) H 02/09/19 15:35 ABG HCO3 29 mmol/L (22-28) H 02/09/19 15:35 ABG Total CO2 27 mmol/L (22-29) 02/09/19 15:35 ABG Base Excess 5.8 mmol/L (-3-3) H 02/09/19 15:35 Oxygen Liter Flow Bipap L 02/09/19 15:35 FiO2 50 % 02/09/19 15:35 Sodium 137 mmol/L (136-145) 02/11/19 06:30 Potassium 3.5 mmol/L (3.5-5.1) 02/11/19 06:30 Chloride 100 mmol/L (98-107) 02/11/19 06:30 Carbon Dioxide 27.6 mmol/L (21.0-32.0) 02/11/19 06:30 Anion Gap 9.4 mmol/L (3-11) 02/11/19 06:30 BUN 27 mg/dL (7-18) H D 02/11/19 06:30 Creatinine 1.19 mg/dL (0.70-1.30) 02/11/19 06:30 Estimated GFR/1.73 m2 59.44 (mL/min/1.73m2) 02/11/19 06:30 Glucose 145 mg/dL (70-100) H 02/11/19 06:30 Lactate 1.2 mmol/l (0.6-1.4) 02/09/19 17:55 Calcium 7.5 mg/dL (8.5-10.1) L 02/11/19 06:30 Magnesium 1.9 mg/dL (1.8-2.4) 02/11/19 06:30 Total Bilirubin 0.7 mg/dL (0.2-1.0) 02/09/19 14:00 AST 16 U/L (15-37) 02/09/19 14:00 ALT 9 U/L (12-78) L 02/09/19 14:00 Alkaline Phosphatase 112 U/L (46-116) 02/09/19 14:00 Troponin I 0.69 ng/mL (0.00-0.06) H* 02/11/19 06:30 NT-Pro-B Natriuret Pep 8651 pg/mL (-299) H 02/09/19 14:00 Total Protein 7.4 g/dL (6.4-8.2) 02/09/19 14:00 Albumin 3.3 g/dL (3.4-5.0) L 02/09/19 14:00 Triglycerides 50 mg/dL (30-150) 02/10/19 06:32 Total Cholesterol 106 mg/dL (50-200) 02/10/19 06:32 LDL Cholesterol Direct 59 mg/dL (<100) 02/10/19 06:32 HDL Cholesterol 43 mg/dL (40-60) 02/10/19 06:32 TSH 0.57 uIU/mL (0.358-3.74) 02/10/19 06:32 Urine Color Yellow (Yellow) 02/09/19 15:00 Urine Clarity Clear 02/09/19 15:00 Urine pH 6.0 (5-8) 02/09/19 15:00 Ur Specific [place] 1.015 (1.005-1.025) 02/09/19 15:00 Urine Protein 100 mg/dL (Negative) H 02/09/19 15:00 Urine Ketones Negative mg/dL (Negative) 02/09/19 15:00 Urine Blood Trace-intact (Negative) H 02/09/19 15:00 Urine Nitrite Negative (Negative) 02/09/19 15:00 Urine Bilirubin Negative (Negative) 02/09/19 15:00 Urine Urobilinogen 0.2 EU/dL (Up TO 0.2) 02/09/19 15:00 Ur Leukocyte Esterase Negative (Negative) 02/09/19 15:00 Urine RBC 0-2 (0-2) 02/09/19 15:00 Urine WBC 0-2 HPF (0-5) 02/09/19 15:00 Ur Epithelial Cells Rare HPF (Negative) 02/09/19 15:00 Urine Crystals Negative HPF (Negative) 02/09/19 15:00 Urine Bacteria Rare HPF (Negative) 02/09/19 15:00 Urine Casts 0-2 hyaline LPF (Negative) 02/09/19 15:00 Urine Mucus Trace (Negative) 02/09/19 15:00 Urine Other Rare renal (Negative) 02/09/19 15:00 Ur Culture Indicated? No 02/09/19 15:00 Urine Glucose Negative mg/dL (Negative) 02/09/19 15:00 Vancomycin Trough 20.7 ug/mL (10.0-20.0) H* 02/11/19 13:10 Path Cons Comment See comment 02/09/19 14:00 Patient ABO/Rh A Positive 02/09/19 19:55 Antibody Screen Negative 02/09/19 19:55
[2019-02-11] MEDS: Rosuvastatin 10 MG TAB PO (20:48)
[2019-02-11] MEDS: methylPREDNISolone SUCC 40 MG VIAL IVP (21:53)
[2019-02-12] VITALS (36 sets, daily range): BP systolic 110–146; BP diastolic 35–101; PULSE 51–81; RESP 2–30; TEMP 36.1–36.5; O2SAT 88–98
[2019-02-12] MEDS: PIPERACILLIN/TAZO 4.5 GM in Normal Saline 100 ML IVPB ×3 (05:28→21:56)
[2019-02-12] MEDS: Normal Saline Flush 10 ML SYR IVP ×4 (05:29→21:55)
[2019-02-12] MEDS: methylPREDNISolone SUCC 40 MG VIAL IVP ×3 (05:29→21:56)
[2019-02-12 06:19] LABS: Abs Immature Grans 0.01 k/cumm (0.0-0.09); Absolute Basophil Count 0.01 k/cumm (0.0-0.2); Absolute Lymphocyte Count 0.38 k/cumm (1.2-3.4); Absolute Monocyte Count 0.41 k/cumm (0.11-0.7); Absolute Neutrophil Count 4.74 k/cumm (1.2-6.7); Basophils % 0.2; HCT 29.1 % (40.0-50.0); HGB 8.8 g/dL (13.5-17.5); Immature Grans % 0.2; Lymphocytes % 6.8; Mean Corp. HGB Concentration 30.2 g/dL (32.0-36.0); Mean Corpuscular Hemoglobin 30.7 pg (27.0-33.0); Mean Corpuscular Volume 101.4 fL (80-95); Mean Platelet Volume 9.5 fL (8.0-11.0); Monocytes % 7.4; Neutrophils % 85.4; Platelet Count 224 x1000/uL (130-400); RBC 2.87 m/cumm (4.50-6.00); RBC Distribution Width 18.6 % (11.8-14.1); White Blood Cell Count 5.55 k/cumm (4.4-10.8)
[2019-02-12 06:35] LABS: Anion Gap 8.8 mmol/L (3-11); BUN 22 mg/dL (7-18); CO2 33.2 mmol/L (21.0-32.0); CREATININE 1.02 mg/dL (0.70-1.30); Calcium 7.6 mg/dL (8.5-10.1); Chloride 97 mmol/L (98-107); Glucose 132 mg/dL (70-100); Magnesium 1.5 mg/dL (1.8-2.4); Sodium 139 mmol/L (136-145)
[2019-02-12 06:49] LABS: Potassium 2.7 mmol/L (3.5-5.1)
[2019-02-12] MEDS: Sucralfate 1 GM TAB PO ×4 (07:30→21:57)
[2019-02-12] MEDS: Budesonide/Formoterol 160/4.5 6 GM 60 PUFF INH IH ×2 (07:56→21:58)
--- NOTE | 2019-02-12 08:19 | PT.INTREAT ---
Date of service: 02/12/19 Time of Service: 08:20 PT Notes 02/12/19 SUBJECTIVE: Pt stating he is doing okay today. He is not complaining of any pain. OBJECTIVE: Supine in bed. Agreeable to PT treatment. TRANSFERS Supine to sit: I Sit to stand: S Stand to Sit: S GAIT Device: FWW Weight bearing: Full Assist: CGA Distance: 20' Deviation: Sa02 dropped to 83% on 2 L NC. Nursing increased to 4 L NC and he increases to 88%. Vitals: See above. Therex: Pt performs SLR x 10 actively. ASSESSMENT: Tolerates short distance ambulation with LOB although continues to have SOB and drop in Sa02 with activity. PLAN: Continue to increase mobility as pt is able to tolerate. Treatment time: 20 minutes [id number] Eveline Silva, GROUP WORKER
[2019-02-12] MEDS: Gabapentin 300 MG CAP PO ×3 (08:29→21:57)
[2019-02-12] MEDS: Metoprolol CR 50 MG TABCR PO (08:29)
[2019-02-12] MEDS: Ferrous Sulfate 325 MG TAB PO ×2 (08:29→21:57)
[2019-02-12] MEDS: dilTIAZem 30 MG TAB PO ×3 (08:30→21:57)
[2019-02-12] MEDS: Docusate Sodium 100 MG CAP PO ×2 (08:30→21:57)
[2019-02-12] MEDS: Thiamine 100 MG TAB PO (08:31)
[2019-02-12] MEDS: Aspirin E.C. 81 MG TABEC PO (08:31)
[2019-02-12] MEDS: Tamsulosin 0.4 MG CAPCR 0.8 MG PO (08:31)
[2019-02-12] MEDS: Calcium 600mg/Vit D 200U TAB 1 TAB PO ×3 (08:31→21:56)
[2019-02-12] MEDS: Multivitamin TAB 1 TAB PO (08:31)
[2019-02-12] MEDS: Potassium Chloride 20 MEQ TABCR 40 MEQ PO ×2 (08:32→16:10)
[2019-02-12] MEDS: Primidone 50 MG TAB PO ×3 (08:32→21:57)
[2019-02-12] MEDS: Allopurinol 300 MG TAB PO (08:32)
[2019-02-12] MEDS: Finasteride 5 MG TAB PO (08:32)
[2019-02-12] MEDS: Senna TAB 1 TAB PO (08:32)
[2019-02-12] MEDS: Folic Acid 1 MG TAB PO (08:32)
[2019-02-12] MEDS: MAGNESIUM SULFATE 2 GM/50 ML BAG IVPB (08:33)
[2019-02-12] MEDS: Lidocaine 5% Patch 1 PATCH TD (08:33)
[2019-02-12] MEDS: Nicotine 14 MG/24 HR PATCH TD (08:33)
[2019-02-12] MEDS: Pantoprazole 40 MG VIAL IVP ×2 (08:34→21:59)
--- NOTE | 2019-02-12 09:57 | CMPROGNOTE_ITS ---
- If Service Date Differs Date of service: 02/12/19 Time of Service: 09:57 Care Management Progress Note S/O:Family meet with Dave, Dr. Fuentes, and eight family members this afternoon regarding current presentation and discharge disposition discussion. Dr. Fuentes provided a medical update, and discussed with Dave his need for short term SNF placement for strengthening. Dave was previously at [facility] and reports that he is interested in CM looking at placement in [place] as he has family in that area and is from that area. CM discussed options in [place] such as [facility] and [facility], for which family states there were no openings when Dave was discharged from [facility]. Family to put together a list of three potential placements and CM will contact placement options on Thursday regarding bed availability and referral. A:Dave is a 78 year old male admitted with health care acquired pneumonia to the ICU. P:Dave remains in the ICU he is receiving IV antibiotics and resp support. Palliative to continue to provide support. SNF placement - ? return to [facility] vs. another SNF placement if bed is available.
[2019-02-12] MEDS: oxyCODONE 5 MG TAB PO ×2 (12:20→18:48)
[2019-02-12] MEDS: Normal Saline 500 ML 30 ML IV ×2 (14:37→22:36)
[2019-02-12] MEDS: Albuterol/Ipratropium 3 ML UPD VIAL UPD (17:15)
--- NOTE | 2019-02-12 18:49 | W.PM.PROGNOT ---
Date of Service Date of service: 02/12/19 Time of Service: 18:49 Assessment and Plan (1) Sepsis: Current visit: Yes Status: Acute Appears resolved with treatment of pneumonia. (2) HCAP (healthcare-associated pneumonia): Current visit: Yes Status: Acute Continue day # 4 of Vancomycin and Pip-Tazo. Monitor culture results. (3) COPD (chronic obstructive pulmonary disease): Current visit: Yes Status: Chronic Continue antibiotics, duonebs as needed, and wean steroids as able. (4) Atrial fibrillation: Current visit: Yes Status: Chronic Converted to NSR. Continue oral Cardizem and BB therapy. Is a candidate for anticoagulation potentially in the future with a ChadsVasc2 score of 5, but given very recent GI Bleed will hold off for now. Continue to monitor on telemetry. ECHO results as above. (5) NSTEMI (non-ST elevated myocardial infarction): Current visit: Yes Status: Acute Demand Ischemia in setting of infection, hypoxia, and Afib with RVR. Troponin is downtrending. Continue daily ASA, high potency statin, and BB therapy. (6) Acute CHF: Current visit: Yes Status: Acute Right sided systolic CHF, with noted Diastolic heart failure and fairly significant valvulopathy with moderate , and moderate to severe MR. CHF in the setting of AFib with RVR. Appears closer to euvolemic. Furosemide gtt down to minimal dosing for one additional day, with goals of discontinuation shortly. Monitor daily weights carefully. (7) CAD (coronary artery disease): Current visit: Yes Status: Chronic Noted, with Type 2 NSTEMI as above. Continue ASA, statin, BB. (8) Lung mass: Current visit: Yes Status: Acute Noted lung mass with mediastinal LAD. Per lengthy discussion with patient and his family, it appears that he may have had this mass for a number of years. His relatives inform today that per discussion with his PCP Dr. Godoy at [facility], this has been evaluated in the past. They also remember being told by [facility] a number of years ago of a 'spot on his lungs'. Will attempt to aquire records on thursday. (9) Anemia: Current visit: Yes Status: Chronic Low but stable Hgb, with recently reported GIB. Continue BID PPI and Sucralfate. Monitor H/H closely. (10) DVT prophylaxis: Current visit: Yes Status: Acute Avoid chemical prophylaxis given recent GI bleed. Ensure SCDs and TEDs. (11) Advance directive on file: Current visit: Yes Status: Acute DNR/DNI Subjective Interval history since last seen: 78 year old man with a prior medical history significant for a recent hospitalization and treatment for pneumonia, admitted from [facility] Emergency Department on 02/09 with a diagnosis of sepsis and RLL Pneumonia. Mr. 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 He was recented treated for pneumonia at [facility] between 01/02 and 01/26/19. He also had apparent GI bleed on that admission due to gastritis, and BPH with urinary retention. He was sent to [facility] and rehab for Usp and PT. He presented to the ED with complaints of SOB, and was found to be hypoxic to the 80's on 3L (described as his baseline), in acute CHF, with an altered mental status. He was placed on BIPAP and diuresed. He was also found to have a RLL pneumonia, suspicious for aspiration. He went into rapid Afib with HR up to 170's. He was placed on cardizem gtt and admitted for further evaluation and treatment. Of note, he also has a lung mass by imaging. The patient was empirically treated for HCAP with combination of Vancomycin and Pip-Tazo. Speech Therapy has evaluated the patient and without any evidence of aspiration risk. He has since converted back to NSR, but also showed elevation in troponin deemed very likely demand in nature. The patient remains on a lasix drip with excellent output, being treated for CHF - his ECHO showed a normal LVEF, DD, Moderate with moderate to severe MR, moderately reduced RV Function, and Significant PHTN. No other events were reported overnight. He remains afebrile. Exam Narrative Exam Narrative: General: Patient appears comfortable sitting out of bed in chair, AAOX3, NAD Neck: Supple CV: Regular, nontachycardic, S1S2. 3/6 LLSB and RUSB murmurs appreciated. Pulmonary: Bilateral crackles and rhonchi Abdomen: + Bowel Sounds, soft, nontender, nondistended Vascular: Mild bilateral lower extremity edema Psych: Normal mood and affect. Objective Objective Clinical Data: Abnormal lab results 02/12/19 02/12/19 02/12/19 Range/Units 06:15 06:15 16:07 RBC 2.87 L (4.50-6.00) m/cumm Hgb 8.8 L (13.5-17.5) g/dL Hct 29.1 L (40.0-50.0) % MCV 101.4 H (80-95) fL MCHC 30.2 L (32.0-36.0) g/dL RDW 18.6 H (11.8-14.1) % Absolute Lymphocytes 0.38 L (1.2-3.4) k/cumm Potassium 2.7 L* 3.0 L (3.5-5.1) mmol/L Chloride 97 L (98-107) mmol/L Carbon Dioxide 33.2 H (21.0-32.0) mmol/L BUN 22 H (7-18) mg/dL Glucose 132 H (70-100) mg/dL Calcium 7.6 L (8.5-10.1) mg/dL Magnesium 1.5 L (1.8-2.4) mg/dL Vital Signs Temperature 36.2 C L 02/12/19 14:55 Temperature Source Temporal Artery Scan 02/12/19 14:55 Pulse 65 02/12/19 17:15 Pulse 62 02/12/19 17:01 Respiratory Rate 26 H 02/12/19 17:15 Respiratory Effort 02/12/19 14:55 Respiratory Depth Normal 02/12/19 14:55 Respiratory Pattern Normal 02/12/19 14:55 Blood Pressure 111/56 L 02/12/19 17:01 Blood Pressure Mean 69 02/12/19 17:01 Blood Pressure Position Supine 02/12/19 14:55 Pulse Oximetry 91 L 02/12/19 18:43 Oxygen Delivery Method Nasal Cannula 02/12/19 18:43 Oxygen Flow Rate 3 02/12/19 18:43 Fraction of Inspired Oxygen (FIO2) 40 02/11/19 23:50 Pain Level 0 02/12/19 14:55 Comment 02/09/19 14:14 Intake & Output 02/11/19 02/12/19 02/12/19 23:59 11:59 23:59 Intake Total 1091.5 / 8382.971 1984 / 2317.5 1177.5 / 2317.5 Output Total 2500 / 5400 2450 / 3750 1300 / 3750 Balance -1408.5 / -3429.042 -1310 / -1432.5 -122.5 / -1432.5 Weight 73.8 kg Intake: IV 491.5 / 890.958 500 / 657.5 157.5 / 657.5 Oral 600 / 1080 640 / 1660 1020 / 1660 Output: Urine 2500 / 5400 2450 / 3750 1300 / 3750 Other: Urine Color Pale Pale Pale Yellow Yellow Yellow Urine Appearance Clear Clear Clear Comment edwards draining clear, pale yellow colored urine edwards draining clear pale yellow colored urine edwards draining clear pale yellow colored urine Laboratory Results WBC 5.55 k/cumm (4.4-10.8) 02/12/19 06:15 RBC 2.87 m/cumm (4.50-6.00) L 02/12/19 06:15 Hgb 8.8 g/dL (13.5-17.5) L 02/12/19 06:15 Hct 29.1 % (40.0-50.0) L 02/12/19 06:15 MCV 101.4 fL (80-95) H 02/12/19 06:15 MCH 30.7 pg (27.0-33.0) 02/12/19 06:15 MCHC 30.2 g/dL (32.0-36.0) L 02/12/19 06:15 RDW 18.6 % (11.8-14.1) H 02/12/19 06:15 Plt Count 224 x1000/uL (130-400) 02/12/19 06:15 MPV 9.5 fL (8.0-11.0) 02/12/19 06:15 Immature Gran % 0.2 02/12/19 06:15 Neutrophils % 85.4 02/12/19 06:15 Band Neutrophils % 2.0 % 02/09/19 14:00 Lymphocytes % 6.8 02/12/19 06:15 Monocytes % 7.4 02/12/19 06:15 Eosinophils % 0.0 02/12/19 06:15 Basophils % 0.2 02/12/19 06:15 Absolute Neutrophils 4.74 k/cumm (1.2-6.7) 02/12/19 06:15 Absolute Lymphocytes 0.38 k/cumm (1.2-3.4) L 02/12/19 06:15 Absolute Monocytes 0.41 k/cumm (0.11-0.7) 02/12/19 06:15 Absolute Eosinophils 0.00 k/cumm (0.0-0.7) 02/12/19 06:15 Absolute Basophils 0.01 k/cumm (0.0-0.2) 02/12/19 06:15 Nucleated RBCs 1 /100WBC 02/09/19 14:00 Differential Comment Manual differential 02/09/19 14:00 RBC Morphology See below 02/09/19 14:00 Polychromasia Present 02/09/19 14:00 Hypochromasia 1+ 02/09/19 14:00 Poikilocytosis 2+ 02/09/19 14:00 Basophilic Stippling Present 02/09/19 14:00 Anisocytosis 2+ 02/09/19 14:00 Microcytosis 1+ 02/09/19 14:00 Macrocytosis 2+ 02/09/19 14:00 Stomatocytes 2+ 02/09/19 14:00 PT 13.1 sec (9.3-11.0) H 02/09/19 14:00 INR 1.3 (0.9-1.1) H 02/09/19 14:00 APTT 29.2 sec (21.0-31.4) 02/09/19 14:00 Sample Site Right radial 02/09/19 15:35 pCO2 40 mmHg (34-47) 02/09/19 15:35 pO2 95 mmHg (83-108) 02/09/19 15:35 O2 Saturation 98 % (94-98) 02/09/19 15:35 ABG pH 7.48 (7.35-7.45) H 02/09/19 15:35 ABG HCO3 29 mmol/L (22-28) H 02/09/19 15:35 ABG Total CO2 27 mmol/L (22-29) 02/09/19 15:35 ABG Base Excess 5.8 mmol/L (-3-3) H 02/09/19 15:35 Oxygen Liter Flow Bipap L 02/09/19 15:35 FiO2 50 % 02/09/19 15:35 Sodium 139 mmol/L (136-145) 02/12/19 06:15 Potassium 3.0 mmol/L (3.5-5.1) L 02/12/19 16:07 Chloride 97 mmol/L (98-107) L 02/12/19 06:15 Carbon Dioxide 33.2 mmol/L (21.0-32.0) H 02/12/19 06:15 Anion Gap 8.8 mmol/L (3-11) 02/12/19 06:15 BUN 22 mg/dL (7-18) H 02/12/19 06:15 Creatinine 1.02 mg/dL (0.70-1.30) 02/12/19 06:15 Estimated GFR/1.73 m2 >= 60.00 (mL/min/1.73m2) 02/12/19 06:15 Glucose 132 mg/dL (70-100) H 02/12/19 06:15 Lactate 1.2 mmol/l (0.6-1.4) 02/09/19 17:55 Calcium 7.6 mg/dL (8.5-10.1) L 02/12/19 06:15 Magnesium 1.5 mg/dL (1.8-2.4) L 02/12/19 06:15 Total Bilirubin 0.7 mg/dL (0.2-1.0) 02/09/19 14:00 AST 16 U/L (15-37) 02/09/19 14:00 ALT 9 U/L (12-78) L 02/09/19 14:00 Alkaline Phosphatase 112 U/L (46-116) 02/09/19 14:00 Troponin I 0.69 ng/mL (0.00-0.06) H* 02/11/19 06:30 NT-Pro-B Natriuret Pep 8651 pg/mL (-299) H 02/09/19 14:00 Total Protein 7.4 g/dL (6.4-8.2) 02/09/19 14:00 Albumin 3.3 g/dL (3.4-5.0) L 02/09/19 14:00 Triglycerides 50 mg/dL (30-150) 02/10/19 06:32 Total Cholesterol 106 mg/dL (50-200) 02/10/19 06:32 LDL Cholesterol Direct 59 mg/dL (<100) 02/10/19 06:32 HDL Cholesterol 43 mg/dL (40-60) 02/10/19 06:32 TSH 0.57 uIU/mL (0.358-3.74) 02/10/19 06:32 Urine Color Yellow (Yellow) 02/09/19 15:00 Urine Clarity Clear 02/09/19 15:00 Urine pH 6.0 (5-8) 02/09/19 15:00 Ur Specific [place] 1.015 (1.005-1.025) 02/09/19 15:00 Urine Protein 100 mg/dL (Negative) H 02/09/19 15:00 Urine Ketones Negative mg/dL (Negative) 02/09/19 15:00 Urine Blood Trace-intact (Negative) H 02/09/19 15:00 Urine Nitrite Negative (Negative) 02/09/19 15:00 Urine Bilirubin Negative (Negative) 02/09/19 15:00 Urine Urobilinogen 0.2 EU/dL (Up TO 0.2) 02/09/19 15:00 Ur Leukocyte Esterase Negative (Negative) 02/09/19 15:00 Urine RBC 0-2 (0-2) 02/09/19 15:00 Urine WBC 0-2 HPF (0-5) 02/09/19 15:00 Ur Epithelial Cells Rare HPF (Negative) 02/09/19 15:00 Urine Crystals Negative HPF (Negative) 02/09/19 15:00 Urine Bacteria Rare HPF (Negative) 02/09/19 15:00 Urine Casts 0-2 hyaline LPF (Negative) 02/09/19 15:00 Urine Mucus Trace (Negative) 02/09/19 15:00 Urine Other Rare renal (Negative) 02/09/19 15:00 Ur Culture Indicated? No 02/09/19 15:00 Urine Glucose Negative mg/dL (Negative) 02/09/19 15:00 Vancomycin Trough 20.7 ug/mL (10.0-20.0) H* 02/11/19 13:10 Path Cons Comment See comment 02/09/19 14:00 Patient ABO/Rh A Positive 02/09/19 19:55 Antibody Screen Negative 02/09/19 19:55
[2019-02-12] MEDS: Patch Removal 1 EACH TP (20:37)
[2019-02-12] MEDS: Rosuvastatin 10 MG TAB PO (21:57)
[2019-02-13] VITALS (41 sets, daily range): BP systolic 128–152; BP diastolic 51–75; PULSE 61–73; RESP 15–26; TEMP 36–36.8; O2SAT 88–95
[2019-02-13 05:56] LABS: Abs Immature Grans 0.01 k/cumm (0.0-0.09); Absolute Basophil Count 0.01 k/cumm (0.0-0.2); Absolute Lymphocyte Count 0.46 k/cumm (1.2-3.4); Absolute Monocyte Count 0.61 k/cumm (0.11-0.7); Absolute Neutrophil Count 6.12 k/cumm (1.2-6.7); Basophils % 0.1; HCT 29.7 % (40.0-50.0); HGB 8.8 g/dL (13.5-17.5); Immature Grans % 0.1; Lymphocytes % 6.4; Mean Corp. HGB Concentration 29.6 g/dL (32.0-36.0); Mean Corpuscular Volume 101.4 fL (80-95); Mean Platelet Volume 9.5 fL (8.0-11.0); Monocytes % 8.5; Neutrophils % 84.9; Platelet Count 233 x1000/uL (130-400); RBC 2.93 m/cumm (4.50-6.00); RBC Distribution Width 18.6 % (11.8-14.1); White Blood Cell Count 7.21 k/cumm (4.4-10.8)
[2019-02-13] MEDS: PIPERACILLIN/TAZO 4.5 GM in Normal Saline 100 ML IVPB ×3 (06:04→22:51)
[2019-02-13 06:11] LABS: Anion Gap 5.4 mmol/L (3-11); BUN 23 mg/dL (7-18); CO2 35.6 mmol/L (21.0-32.0); CREATININE 1.08 mg/dL (0.70-1.30); Chloride 97 mmol/L (98-107); Glucose 133 mg/dL (70-100); Magnesium 1.7 mg/dL (1.8-2.4); Sodium 138 mmol/L (136-145)
--- NOTE | 2019-02-13 07:47 | PDOC.CMPRO ---
- If Service Date Differs Date of service: 02/13/19 Time of Service: 07:47 Care Management Progress Note S/O: CM met with Dave this morning whom was sitting up in his chair in the ICU. CM discussed Dave's thoughts on the family meeting yesterday, he states that he feels it went good. Discussed recommendations for SNF placement, and Dave would like CM to look into [facility] on Thursday in regards to bed availability as he is from [place]. A:Dave is a 78 year old male admitted with health care acquired pneumonia to the ICU. P:Dave remains in the ICU he is receiving IV antibiotics and resp support. Palliative to continue to provide support. SNF placement - ? return to [facility] vs. another SNF placement if bed is available.
--- NOTE | 2019-02-13 08:48 | PTTR_ITS ---
Date of service: 02/13/19 Time of Service: 08:43 PT Notes 02/13/19 SUBJECTIVE: Dave stating that he is feeling good. No complaints of SOB. OBJECTIVE: Supine in bed. Agreeable to PT treatment. Nursing stating that he walked into the [facility] yesterday afternoon. TRANSFERS Supine to sit: I Sit to stand: S Stand to sit: S GAIT Device: FWW Weight bearing: Full Assist: CGA Distance: 10' Deviation: Supplemental O2, NC VITALS: Sa02 90-93% throughout. THEREX: Seated and standing LE strengthening exercises. Light small RONALD balance with CGA and posterior lean without UE support to walker. ASSESSMENT: Tolerates PT well today. Began some light balance activities where pt demonstrates posterior lean without UE support. Pt would benefit from continued balance training as well as gait training for safety at home. PLAN: Continue current POC progressing toward's established goals. Treatment time: 20 minutes [id number] Eveline Silva, BONE DENSITY TECHNICIAN
[2019-02-13] MEDS: methylPREDNISolone SUCC 40 MG VIAL IVP (08:49)
[2019-02-13] MEDS: Sucralfate 1 GM TAB PO ×4 (08:49→22:51)
[2019-02-13] MEDS: Magnesium Oxide 400 MG TAB PO (08:49)
[2019-02-13] MEDS: Potassium Chloride 20 MEQ TABCR 40 MEQ PO ×2 (08:50→16:51)
[2019-02-13] MEDS: Aspirin E.C. 81 MG TABEC PO (08:51)
[2019-02-13] MEDS: Calcium 600mg/Vit D 200U TAB 1 TAB PO ×3 (08:51→19:48)
[2019-02-13] MEDS: Allopurinol 300 MG TAB PO (08:51)
[2019-02-13] MEDS: dilTIAZem 30 MG TAB PO ×3 (08:52→19:49)
[2019-02-13] MEDS: Docusate Sodium 100 MG CAP PO ×2 (08:53→19:48)
[2019-02-13] MEDS: Finasteride 5 MG TAB PO (08:53)
[2019-02-13] MEDS: Ferrous Sulfate 325 MG TAB PO ×2 (08:53→19:49)
[2019-02-13] MEDS: Gabapentin 300 MG CAP PO ×3 (08:53→19:47)
[2019-02-13] MEDS: Folic Acid 1 MG TAB PO (08:53)
[2019-02-13] MEDS: Lidocaine 5% Patch 1 PATCH TD (08:54)
[2019-02-13] MEDS: Nicotine 14 MG/24 HR PATCH TD (08:54)
[2019-02-13] MEDS: Metoprolol CR 50 MG TABCR PO (08:54)
[2019-02-13] MEDS: Multivitamin TAB 1 TAB PO (08:54)
[2019-02-13] MEDS: Primidone 50 MG TAB PO ×3 (08:55→19:49)
[2019-02-13] MEDS: Polyethylene Glycol 3350 17 GM PACKET PO (08:55)
[2019-02-13] MEDS: Pantoprazole 40 MG VIAL IVP ×2 (08:55→19:50)
[2019-02-13] MEDS: Senna TAB 1 TAB PO (08:55)
[2019-02-13] MEDS: Thiamine 100 MG TAB PO (08:55)
[2019-02-13] MEDS: Tamsulosin 0.4 MG CAPCR 0.8 MG PO (08:55)
[2019-02-13] MEDS: POTASSIUM CHLORIDE 20 MEQ/100 ML BAG 50 MEQ IVPB (08:56)
[2019-02-13 09:32] LABS: Vancomycin, Trough 21.2 ug/mL (10.0-20.0)
[2019-02-13] MEDS: oxyCODONE 5 MG TAB PO ×2 (12:11→19:51)
--- NOTE | 2019-02-13 12:54 | W.PM.PROGNOT ---
Date of Service Date of service: 02/13/19 Time of Service: 12:54 Assessment and Plan (1) Sepsis: Current visit: Yes Status: Acute Resolved with treatment of pneumonia. (2) HCAP (healthcare-associated pneumonia): Current visit: Yes Status: Acute Continue day # 5 of Vancomycin and Pip-Tazo. MRSA screen positive, and rapid flu negative. Blood Cultures with NG X 72 Hours. (3) COPD (chronic obstructive pulmonary disease): Current visit: Yes Status: Chronic Continue antibiotics, duonebs as needed, and wean steroids as able. (4) Atrial fibrillation: Current visit: Yes Status: Chronic Converted to NSR. Continue oral Cardizem and BB therapy. Is a candidate for anticoagulation potentially in the future with a ChadsVasc2 score of 5, but given very recent GI Bleed will hold off for now. Continue to monitor on telemetry. ECHO results as above. (5) NSTEMI (non-ST elevated myocardial infarction): Current visit: Yes Status: Acute Demand Ischemia in setting of infection, hypoxia, and Afib with RVR. Troponin downtrended. Continue daily ASA, high potency statin, and BB therapy. (6) Acute CHF: Current visit: Yes Status: Acute Right sided systolic CHF, with noted Diastolic heart failure and fairly significant valvulopathy with moderate , and moderate to severe MR. CHF in the setting of AFib with RVR. Appears closer to euvolemic. Furosemide gtt discontinued today. Monitor daily weights carefully. (7) CAD (coronary artery disease): Current visit: Yes Status: Chronic Noted, with Type 2 NSTEMI as above. Continue ASA, statin, BB. (8) Lung mass: Current visit: Yes Status: Acute Noted lung mass with mediastinal LAD. Per lengthy discussion with patient and his family, it appears that he may have had this mass for a number of years. His relatives relayed that per discussion with his PCP Dr. Godoy at [facility], this has been evaluated in the past. They also remember being told by [facility] a number of years ago of a 'spot on his lungs'. Will attempt to aquire records on thursday. (9) Anemia: Current visit: Yes Status: Chronic Low but stable Hgb, with recently reported GIB. Continue BID PPI and Sucralfate. Monitor H/H closely. (10) DVT prophylaxis: Current visit: Yes Status: Acute Avoid chemical prophylaxis given recent GI bleed. Ensure SCDs and TEDs. (11) Advance directive on file: Current visit: Yes Status: Acute DNR/DNI Subjective Interval history since last seen: 78 year old man with a prior medical history significant for a recent hospitalization and treatment for pneumonia, admitted from [facility] Emergency Department on 02/09 with a diagnosis of sepsis and RLL Pneumonia. Mr. 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 He was recented treated for pneumonia at [facility] between 01/02 and 01/26/19. He also had apparent GI bleed on that admission due to gastritis, and BPH with urinary retention. He was sent to [facility] and rehab for Fdc and PT. He presented to the ED with complaints of SOB, and was found to be hypoxic to the 80's on 3L (described as his baseline), in acute CHF, with an altered mental status. He was placed on BIPAP and diuresed. He was also found to have a RLL pneumonia, suspicious for aspiration. He went into rapid Afib with HR up to 170's. He was placed on cardizem gtt and admitted for further evaluation and treatment. Of note, he also has a lung mass by imaging. The patient was empirically treated for HCAP with combination of Vancomycin and Pip-Tazo. Speech Therapy has evaluated the patient and without any evidence of aspiration risk. He has since converted back to NSR, but also showed elevation in troponin deemed very likely demand in nature. The patient remains on a lasix drip with excellent output, being treated for CHF - his ECHO showed a normal LVEF, DD, Moderate with moderate to severe MR, moderately reduced RV Function, and Significant PHTN. No other events were reported overnight. He remains afebrile. Exam Narrative Exam Narrative: General: Patient appears comfortable sitting out of bed in chair, AAOX3, NAD Neck: Supple CV: Regular, nontachycardic, S1S2. 3/6 LLSB and RUSB murmurs appreciated. Pulmonary: Continued decreased right base breath sounds but improved, minimal left basilar crackles. No wheezing. Abdomen: + Bowel Sounds, soft, nontender, nondistended Vascular: Mild bilateral lower extremity edema Psych: Normal mood and affect. Objective Objective Clinical Data: Abnormal lab results 02/12/19 02/13/19 02/13/19 Range/Units 16:07 05:25 05:25 RBC 2.93 L (4.50-6.00) m/cumm Hgb 8.8 L (13.5-17.5) g/dL Hct 29.7 L (40.0-50.0) % MCV 101.4 H (80-95) fL MCHC 29.6 L (32.0-36.0) g/dL RDW 18.6 H (11.8-14.1) % Absolute Lymphocytes 0.46 L (1.2-3.4) k/cumm Potassium 3.0 L 3.0 L (3.5-5.1) mmol/L Chloride 97 L (98-107) mmol/L Carbon Dioxide 35.6 H (21.0-32.0) mmol/L BUN 23 H (7-18) mg/dL Glucose 133 H (70-100) mg/dL Calcium 8.0 L (8.5-10.1) mg/dL Magnesium 1.7 L (1.8-2.4) mg/dL Vancomycin Trough (10.0-20.0) ug/mL 02/13/19 Range/Units 09:05 RBC (4.50-6.00) m/cumm Hgb (13.5-17.5) g/dL Hct (40.0-50.0) % MCV (80-95) fL MCHC (32.0-36.0) g/dL RDW (11.8-14.1) % Absolute Lymphocytes (1.2-3.4) k/cumm Potassium (3.5-5.1) mmol/L Chloride (98-107) mmol/L Carbon Dioxide (21.0-32.0) mmol/L BUN (7-18) mg/dL Glucose (70-100) mg/dL Calcium (8.5-10.1) mg/dL Magnesium (1.8-2.4) mg/dL Vancomycin Trough 21.2 H* (10.0-20.0) ug/mL Vital Signs Temperature 36.5 C 02/13/19 03:40 Temperature Source Temporal Artery Scan 02/13/19 03:40 Pulse 70 02/13/19 08:01 Pulse 67 02/13/19 08:02 Respiratory Rate 22 02/13/19 08:02 Respiratory Effort Grunting 02/13/19 03:40 Respiratory Depth Normal 02/13/19 03:40 Respiratory Pattern Normal 02/13/19 03:40 Blood Pressure 144/62 H 02/13/19 08:01 Blood Pressure Mean 81 02/13/19 08:01 Blood Pressure Position Supine 02/13/19 03:40 Pulse Oximetry 93 L 02/13/19 08:02 Oxygen Delivery Method Nasal Cannula 02/13/19 03:40 Oxygen Flow Rate 3.5 02/13/19 03:40 Fraction of Inspired Oxygen (FIO2) 40 02/11/19 23:50 Pain Level 1 02/13/19 12:11 Comment 02/09/19 14:14 Intake & Output 02/12/19 02/13/19 02/13/19 23:59 11:59 23:59 Intake Total 1637.5 / 2777.5 666.750 / 779.250 112.5 / 779.250 Output Total 2300 / 4750 2350 / 2350 Balance -662.5 / -1972.5 -1683.250 / -1570.750 112.5 / -1570.750 Intake: IV 257.5 / 757.5 666.750 / 779.250 112.5 / 779.250 Oral 1380 / 2020 Output: Urine 2300 / 4750 2350 / 2350 Other: Urine Color Light Emma [place] Urine Appearance Clear Hematuria Comment edwards draining light emma colored urine edwards draining pink tinged urine with a few drops of abran blood present in the tubing. Laboratory Results WBC 7.21 k/cumm (4.4-10.8) 02/13/19 05:25 RBC 2.93 m/cumm (4.50-6.00) L 02/13/19 05:25 Hgb 8.8 g/dL (13.5-17.5) L 02/13/19 05:25 Hct 29.7 % (40.0-50.0) L 02/13/19 05:25 MCV 101.4 fL (80-95) H 02/13/19 05:25 MCH 30.0 pg (27.0-33.0) 02/13/19 05:25 MCHC 29.6 g/dL (32.0-36.0) L 02/13/19 05:25 RDW 18.6 % (11.8-14.1) H 02/13/19 05:25 Plt Count 233 x1000/uL (130-400) 02/13/19 05:25 MPV 9.5 fL (8.0-11.0) 02/13/19 05:25 Immature Gran % 0.1 02/13/19 05:25 Neutrophils % 84.9 02/13/19 05:25 Band Neutrophils % 2.0 % 02/09/19 14:00 Lymphocytes % 6.4 02/13/19 05:25 Monocytes % 8.5 02/13/19 05:25 Eosinophils % 0.0 02/13/19 05:25 Basophils % 0.1 02/13/19 05:25 Absolute Neutrophils 6.12 k/cumm (1.2-6.7) 02/13/19 05:25 Absolute Lymphocytes 0.46 k/cumm (1.2-3.4) L 02/13/19 05:25 Absolute Monocytes 0.61 k/cumm (0.11-0.7) 02/13/19 05:25 Absolute Eosinophils 0.00 k/cumm (0.0-0.7) 02/13/19 05:25 Absolute Basophils 0.01 k/cumm (0.0-0.2) 02/13/19 05:25 Nucleated RBCs 1 /100WBC 02/09/19 14:00 Differential Comment Manual differential 02/09/19 14:00 RBC Morphology See below 02/09/19 14:00 Polychromasia Present 02/09/19 14:00 Hypochromasia 1+ 02/09/19 14:00 Poikilocytosis 2+ 02/09/19 14:00 Basophilic Stippling Present 02/09/19 14:00 Anisocytosis 2+ 02/09/19 14:00 Microcytosis 1+ 02/09/19 14:00 Macrocytosis 2+ 02/09/19 14:00 Stomatocytes 2+ 02/09/19 14:00 PT 13.1 sec (9.3-11.0) H 02/09/19 14:00 INR 1.3 (0.9-1.1) H 02/09/19 14:00 APTT 29.2 sec (21.0-31.4) 02/09/19 14:00 Sample Site Right radial 02/09/19 15:35 pCO2 40 mmHg (34-47) 02/09/19 15:35 pO2 95 mmHg (83-108) 02/09/19 15:35 O2 Saturation 98 % (94-98) 02/09/19 15:35 ABG pH 7.48 (7.35-7.45) H 02/09/19 15:35 ABG HCO3 29 mmol/L (22-28) H 02/09/19 15:35 ABG Total CO2 27 mmol/L (22-29) 02/09/19 15:35 ABG Base Excess 5.8 mmol/L (-3-3) H 02/09/19 15:35 Oxygen Liter Flow Bipap L 02/09/19 15:35 FiO2 50 % 02/09/19 15:35 Sodium 138 mmol/L (136-145) 02/13/19 05:25 Potassium 3.0 mmol/L (3.5-5.1) L 02/13/19 05:25 Chloride 97 mmol/L (98-107) L 02/13/19 05:25 Carbon Dioxide 35.6 mmol/L (21.0-32.0) H 02/13/19 05:25 Anion Gap 5.4 mmol/L (3-11) 02/13/19 05:25 BUN 23 mg/dL (7-18) H 02/13/19 05:25 Creatinine 1.08 mg/dL (0.70-1.30) 02/13/19 05:25 Estimated GFR/1.73 m2 >= 60.00 (mL/min/1.73m2) 02/13/19 05:25 Glucose 133 mg/dL (70-100) H 02/13/19 05:25 Lactate 1.2 mmol/l (0.6-1.4) 02/09/19 17:55 Calcium 8.0 mg/dL (8.5-10.1) L 02/13/19 05:25 Magnesium 1.7 mg/dL (1.8-2.4) L 02/13/19 05:25 Total Bilirubin 0.7 mg/dL (0.2-1.0) 02/09/19 14:00 AST 16 U/L (15-37) 02/09/19 14:00 ALT 9 U/L (12-78) L 02/09/19 14:00 Alkaline Phosphatase 112 U/L (46-116) 02/09/19 14:00 Troponin I 0.69 ng/mL (0.00-0.06) H* 02/11/19 06:30 NT-Pro-B Natriuret Pep 8651 pg/mL (-299) H 02/09/19 14:00 Total Protein 7.4 g/dL (6.4-8.2) 02/09/19 14:00 Albumin 3.3 g/dL (3.4-5.0) L 02/09/19 14:00 Triglycerides 50 mg/dL (30-150) 02/10/19 06:32 Total Cholesterol 106 mg/dL (50-200) 02/10/19 06:32 LDL Cholesterol Direct 59 mg/dL (<100) 02/10/19 06:32 HDL Cholesterol 43 mg/dL (40-60) 02/10/19 06:32 TSH 0.57 uIU/mL (0.358-3.74) 02/10/19 06:32 Urine Color Yellow (Yellow) 02/09/19 15:00 Urine Clarity Clear 02/09/19 15:00 Urine pH 6.0 (5-8) 02/09/19 15:00 Ur Specific [place] 1.015 (1.005-1.025) 02/09/19 15:00 Urine Protein 100 mg/dL (Negative) H 02/09/19 15:00 Urine Ketones Negative mg/dL (Negative) 02/09/19 15:00 Urine Blood Trace-intact (Negative) H 02/09/19 15:00 Urine Nitrite Negative (Negative) 02/09/19 15:00 Urine Bilirubin Negative (Negative) 02/09/19 15:00 Urine Urobilinogen 0.2 EU/dL (Up TO 0.2) 02/09/19 15:00 Ur Leukocyte Esterase Negative (Negative) 02/09/19 15:00 Urine RBC 0-2 (0-2) 02/09/19 15:00 Urine WBC 0-2 HPF (0-5) 02/09/19 15:00 Ur Epithelial Cells Rare HPF (Negative) 02/09/19 15:00 Urine Crystals Negative HPF (Negative) 02/09/19 15:00 Urine Bacteria Rare HPF (Negative) 02/09/19 15:00 Urine Casts 0-2 hyaline LPF (Negative) 02/09/19 15:00 Urine Mucus Trace (Negative) 02/09/19 15:00 Urine Other Rare renal (Negative) 02/09/19 15:00 Ur Culture Indicated? No 02/09/19 15:00 Urine Glucose Negative mg/dL (Negative) 02/09/19 15:00 Vancomycin Trough 21.2 ug/mL (10.0-20.0) H* 02/13/19 09:05 Path Cons Comment See comment 02/09/19 14:00 Patient ABO/Rh A Positive 02/09/19 19:55 Antibody Screen Negative 02/09/19 19:55
[2019-02-13] MEDS: Normal Saline Flush 10 ML SYR IVP ×2 (13:52→19:50)
[2019-02-13] MEDS: predniSONE 20 MG TAB 40 MG PO (19:47)
[2019-02-13] MEDS: Rosuvastatin 10 MG TAB PO (19:49)
[2019-02-13] MEDS: Acetaminophen 325 MG TAB PO (19:49)
[2019-02-13] MEDS: Budesonide/Formoterol 160/4.5 6 GM 60 PUFF INH IH (19:50)
[2019-02-13] MEDS: Patch Removal 1 EACH TP (19:51)
[2019-02-14] VITALS (23 sets, daily range): BP systolic 98–159; BP diastolic 55–92; PULSE 60–77; RESP 18–30; TEMP 35.5–37.2; O2SAT 84–100
[2019-02-14] MEDS: oxyCODONE 5 MG TAB PO ×4 (00:03→17:17)
--- NOTE | 2019-02-14 01:35 | NUR.NOTE ---
Nursing Note: pt. transferred from ICU to bed 212 in stable condition.
--- NOTE | 2019-02-14 03:27 | NUR.NOTE ---
Nursing Note: received verbal orders from gregg Joe to discontinue tele monitoring for this patient coming out of ICU to [facility].
[2019-02-14] MEDS: PIPERACILLIN/TAZO 4.5 GM in Normal Saline 100 ML IVPB ×3 (05:13→21:17)
[2019-02-14 07:04] LABS: Abs Immature Grans 0.02 k/cumm (0.0-0.09); Absolute Basophil Count 0.01 k/cumm (0.0-0.2); Absolute Lymphocyte Count 0.44 k/cumm (1.2-3.4); Absolute Monocyte Count 0.53 k/cumm (0.11-0.7); Absolute Neutrophil Count 5.63 k/cumm (1.2-6.7); Basophils % 0.2; HCT 27.2 % (40.0-50.0); HGB 7.7 g/dL (13.5-17.5); Immature Grans % 0.3; Lymphocytes % 6.6; Mean Corp. HGB Concentration 28.3 g/dL (32.0-36.0); Mean Corpuscular Hemoglobin 29.2 pg (27.0-33.0); Mean Platelet Volume 9.5 fL (8.0-11.0); Neutrophils % 84.9; Platelet Count 207 x1000/uL (130-400); RBC 2.64 m/cumm (4.50-6.00); RBC Distribution Width 18.4 % (11.8-14.1); White Blood Cell Count 6.63 k/cumm (4.4-10.8)
[2019-02-14 07:24] LABS: Anion Gap 3.5 mmol/L (3-11); BUN 30 mg/dL (7-18); CO2 35.5 mmol/L (21.0-32.0); CREATININE 0.98 mg/dL (0.70-1.30); Calcium 8.3 mg/dL (8.5-10.1); Chloride 99 mmol/L (98-107); Glucose 147 mg/dL (70-100); Magnesium 1.8 mg/dL (1.8-2.4); Potassium 4.1 mmol/L (3.5-5.1); Sodium 138 mmol/L (136-145)
[2019-02-14 07:37] LABS: Anisocytosis 2+; Diff Comment RBC Morph Reviewed; Hypochromasia 2+; Macrocytosis 2+; Microcytosis 1+; Polychromasia Present
[2019-02-14 07:40] LABS: Poikilocytes 2+
[2019-02-14] MEDS: Nicotine 14 MG/24 HR PATCH TD (09:15)
[2019-02-14] MEDS: Normal Saline Flush 10 ML SYR IVP ×3 (09:16→21:17)
[2019-02-14] MEDS: Pantoprazole 40 MG VIAL IVP ×2 (09:16→21:16)
[2019-02-14] MEDS: Lidocaine 5% Patch 1 PATCH TD (09:16)
[2019-02-14] MEDS: Tamsulosin 0.4 MG CAPCR 0.8 MG PO (09:17)
[2019-02-14] MEDS: Finasteride 5 MG TAB PO (09:17)
[2019-02-14] MEDS: Folic Acid 1 MG TAB PO (09:17)
[2019-02-14] MEDS: Metoprolol CR 50 MG TABCR PO (09:17)
[2019-02-14] MEDS: Furosemide 40 MG TAB PO (09:17)
[2019-02-14] MEDS: Gabapentin 300 MG CAP PO ×3 (09:17→21:16)
[2019-02-14] MEDS: predniSONE 20 MG TAB 40 MG PO ×2 (09:17→21:17)
[2019-02-14] MEDS: Allopurinol 300 MG TAB PO (09:17)
[2019-02-14] MEDS: Aspirin E.C. 81 MG TABEC PO (09:18)
[2019-02-14] MEDS: Thiamine 100 MG TAB PO (09:18)
[2019-02-14] MEDS: Docusate Sodium 100 MG CAP PO (09:18)
[2019-02-14] MEDS: Primidone 50 MG TAB PO ×3 (09:18→21:17)
[2019-02-14] MEDS: Ferrous Sulfate 325 MG TAB PO ×2 (09:18→21:16)
[2019-02-14] MEDS: dilTIAZem 30 MG TAB PO ×3 (09:18→21:16)
[2019-02-14] MEDS: Multivitamin TAB 1 TAB PO (09:18)
[2019-02-14] MEDS: Sucralfate 1 GM TAB PO ×3 (09:18→21:17)
[2019-02-14] MEDS: Senna TAB 1 TAB PO (09:18)
[2019-02-14] MEDS: Calcium 600mg/Vit D 200U TAB 1 TAB PO ×3 (09:18→21:16)
--- NOTE | 2019-02-14 10:57 | OT.INNT ---
Date of service: 02/14/19 Time of Service: 10:00 Occupational Therapy Notes 02/14/19 OT went to see pt, he was sitting in his chair when OT arrived. Pt reports that he does not feel well today and that he would like to hold on OT services today. Pt does note that when he feels better he would be willing to participate. Sheela Oneil, OTR/L [facility]
[2019-02-14] MEDS: Magnesium Oxide 400 MG TAB PO (11:41)
[2019-02-14] MEDS: Furosemide 20 MG/2 ML VIAL IVP (14:50)
--- NOTE | 2019-02-14 15:45 | PDOC.CMPRO ---
- If Service Date Differs Date of service: 02/14/19 Time of Service: 15:45 Care Management Progress Note S/O: CM met with Dave this afternoon in his room he is sitting up in the chair. He states he is feeling much better. CM reviewed additional referrals he requested to [facility] and [facility]. Both have waiting list and no current beds. Dave has requested referrals also be faxed to [facility] and [facility]. CM spoke to admissions and all facilities are willing to take the referral and place Dave on a waiting list. CM review plan with admission director at [facility]. Anticipate Dave will be ready for discharge in the next few days. He remains on IV antibiotics and oral diuretics. Anticipate he will transfer to [facility] via wheelchair van. A:Dave is a 78 year old male admitted with health care acquired pneumonia to the ICU. P:Dave remains in the ICU he is receiving IV antibiotics and resp support. Palliative to continue to provide support. Return to [facility] which he agrees to until another bed is available.
--- NOTE | 2019-02-14 15:51 | CMPROGNOTE_ITS ---
- If Service Date Differs Date of service: 02/14/19 Time of Service: 15:45 Care Management Progress Note S/O: CM met with Dave this afternoon in his room he is sitting up in the chair. He states he is feeling much better. CM reviewed additional referrals he requested to [facility] and [facility]. Both have waiting list and no current beds. Dave has requested referrals also be faxed to [facility] and [facility]. CM spoke to admissions and all facilities are willing to take the referral and place Dave on a waiting list. CM review plan with admission director at [facility]. Anticipate Dave will be ready for discharge in the next few days. He remains on IV antibiotics and oral diuretics. Anticipate he will transfer to [facility] via wheelchair van. A:Dave is a 78 year old male admitted with health care acquired pneumonia to the ICU. P:Dave remains in the ICU he is receiving IV antibiotics and resp support. Palliative to continue to provide support. Return to [facility] which he agrees to until another bed is available.
[2019-02-14 16:53] LABS: HCT 22.3 % (40.0-50.0); Mean Corp. HGB Concentration 29.6 g/dL (32.0-36.0); Mean Corpuscular Hemoglobin 30.4 pg (27.0-33.0); Mean Corpuscular Volume 102.8 fL (80-95); Mean Platelet Volume 9.6 fL (8.0-11.0); Platelet Count 277 x1000/uL (130-400); RBC 2.17 m/cumm (4.50-6.00); RBC Distribution Width 18.4 % (11.8-14.1); White Blood Cell Count 13.83 k/cumm (4.4-10.8)
[2019-02-14] MEDS: diphenhydrAMINE 25 MG CAP PO (16:54)
[2019-02-14 16:57] LABS: HGB 6.6 g/dL (13.5-17.5)
[2019-02-14 17:03] LABS: Anion Gap 6.2 mmol/L (3-11); BUN 41 mg/dL (7-18); CO2 33.8 mmol/L (21.0-32.0); CREATININE 1.12 mg/dL (0.70-1.30); Calcium 8.3 mg/dL (8.5-10.1); Chloride 97 mmol/L (98-107); Glucose 198 mg/dL (70-100); Sodium 137 mmol/L (136-145)
--- NOTE | 2019-02-14 19:12 | W.PM.PROGNOT ---
Date of Service Date of service: 02/14/19 Time of Service: 19:12 Assessment and Plan (1) Anemia: Current visit: Yes Status: Chronic Low but stable Hgb, with recently reported GIB. Patient actually reports multiple prior bouts of bleeding, and also with multiple endoscopies without any noted pathology. Question possible AVMs as potential source of bleeding. Have requested records from [facility], where he reports having had his work-up in the past. Mechanical DVT prophylaxis has been on hold - will hold aspirin as well, and continue BID PPI and Sucralfate. Monitor H/H closely. (2) Sepsis: Current visit: Yes Status: Acute Resolved with treatment of pneumonia. (3) HCAP (healthcare-associated pneumonia): Current visit: Yes Status: Acute Continue day # 6 of Vancomycin and Pip-Tazo. MRSA screen positive, and rapid flu negative. Blood Cultures with NG X 120 Hours. Will plan on one additional day of antibiotic therapy. Breathing appears at baseline in patient with underlying COPD and on home O2. (4) COPD (chronic obstructive pulmonary disease): Current visit: Yes Status: Chronic Continue antibiotics, duonebs as needed, and wean steroids as able. (5) Atrial fibrillation: Current visit: Yes Status: Chronic Converted to NSR. Continue oral Cardizem and BB therapy. Merits anticoagulation with a ChadsVasc2 score of 5, but given recent and now current GI Bleed is not a candidate currently. Continue to monitor on telemetry. ECHO results as above. (6) NSTEMI (non-ST elevated myocardial infarction): Current visit: Yes Status: Acute Demand Ischemia in setting of infection, hypoxia, and Afib with RVR. Troponin downtrended. Continue ervin high potency statin, and BB therapy. ASA on hold. (7) Acute CHF: Current visit: Yes Status: Acute Right sided systolic CHF, with noted Diastolic heart failure and fairly significant valvulopathy with moderate , and moderate to severe MR. CHF in the setting of AFib with RVR. Appears closer to euvolemic. Furosemide gtt discontinued, and patient back on once daily diuretic tehrapy. Monitor daily weights carefully. (8) CAD (coronary artery disease): Current visit: Yes Status: Chronic Noted, with Type 2 NSTEMI as above. Continue ASA, statin, BB. (9) Lung mass: Current visit: Yes Status: Acute Noted lung mass with mediastinal LAD. Per lengthy discussion with patient and his family, it appears that he may have had this mass for a number of years. His relatives relayed that per discussion with his PCP Dr. Gdooy at [facility], this has been evaluated in the past. They also remember being [place] [facility] [place] of a 'spot on his lungs'. Will attempt to aquire records. (10) DVT prophylaxis: Current visit: Yes Status: Acute Avoid chemical prophylaxis given GI bleed. Ensure SCDs and TEDs. (11) Advance directive on file: Current visit: Yes Status: Acute DNR/DNI Subjective Interval history since last seen: 78 year old man with a prior medical history significant for a recent hospitalization and treatment for pneumonia, admitted from [facility] Emergency Department on 02/09 with a diagnosis of sepsis and RLL Pneumonia. Mr. 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 He was recented treated for pneumonia at [facility] between 01/02 and 01/26/19. He also had apparent GI bleed on that admission due to gastritis, and BPH with urinary retention. He was sent to [facility] and rehab for Usp and PT. He presented to the ED with complaints of SOB, and was found to be hypoxic to the 80's on 3L (described as his baseline), in acute CHF, with an altered mental status. He was placed on BIPAP and diuresed. He was also found to have a RLL pneumonia, suspicious for aspiration. He went into rapid Afib with HR up to 170's. He was placed on cardizem gtt and admitted for further evaluation and treatment. Of note, he also has a lung mass by imaging. The patient was empirically treated for HCAP with combination of Vancomycin and Pip-Tazo. Speech Therapy has evaluated the patient and without any evidence of aspiration risk. He has since converted back to NSR, but also showed a minimal elevation in troponin deemed very likely demand in nature. The patient was maintained on a lasix drip with excellent output, treated for CHF - his ECHO showed a normal LVEF, DD, Moderate with moderate to severe MR, moderately reduced RV Function, and Significant PHTN. Mr. Hyman's Hemoglobin had been stable in the 8's range and stable. He has a history of GIB, with previously reported negative endoscopies. Today his Hemoglobin dropped slightly to 7.7, and he was reported to start having dark stools with scant blood. He was ordered 2 Units of PRBCs, but prior to receiving them suffered an unresponsive episode while on the commode. He regained consciousness with essentially stable vitals without intervention, but a repeat CBC showed his Hgb to have dropped to 6.6. No other events were reported overnight. He remains afebrile. Exam Narrative Exam Narrative: General: Patient appeared initially comfortable sitting out of bed in chair, AAOX3, NAD. At time of his syncopal episode he was found to be pale, clammy and cold, initially unresponsive but then regained consciousness with appropriate mental status following. Neck: Supple CV: Regular, nontachycardic, S1S2. 3/6 LLSB and RUSB murmurs appreciated. Pulmonary: Continued decreased right base breath sounds but improved, minimal left basilar crackles. No wheezing. Abdomen: + Bowel Sounds, soft, nontender, nondistended Vascular: Mild bilateral lower extremity edema Psych: Normal mood and affect. Objective Objective Clinical Data: Abnormal lab results 02/14/19 02/14/19 02/14/19 Range/Units 06:25 06:25 14:38 WBC (4.4-10.8) k/cumm RBC 2.64 L (4.50-6.00) m/cumm Hgb 7.7 L (13.5-17.5) g/dL Hct 27.2 L (40.0-50.0) % MCV 103.0 H (80-95) fL MCHC 28.3 L (32.0-36.0) g/dL RDW 18.4 H (11.8-14.1) % Absolute Lymphocytes 0.44 L (1.2-3.4) k/cumm Chloride (98-107) mmol/L Carbon Dioxide 35.5 H (21.0-32.0) mmol/L BUN 30 H (7-18) mg/dL Glucose 147 H (70-100) mg/dL Calcium 8.3 L (8.5-10.1) mg/dL Crossmatch See Detail 02/14/19 02/14/19 Range/Units 16:45 16:45 WBC 13.83 H D (4.4-10.8) k/cumm RBC 2.17 L (4.50-6.00) m/cumm Hgb 6.6 L* (13.5-17.5) g/dL Hct 22.3 L (40.0-50.0) % MCV 102.8 H (80-95) fL MCHC 29.6 L (32.0-36.0) g/dL RDW 18.4 H (11.8-14.1) % Absolute Lymphocytes (1.2-3.4) k/cumm Chloride 97 L (98-107) mmol/L Carbon Dioxide 33.8 H (21.0-32.0) mmol/L BUN 41 H D (7-18) mg/dL Glucose 198 H (70-100) mg/dL Calcium 8.3 L (8.5-10.1) mg/dL Crossmatch Vital Signs Temperature 36.5 C 02/14/19 19:00 Temperature Source Tympanic 02/14/19 15:53 Pulse 74 02/14/19 19:00 Pulse Rhythm Regular 02/14/19 13:29 Pulse 72 02/14/19 00:02 Respiratory Rate 24 02/14/19 19:00 Respiratory Effort 02/14/19 13:29 Respiratory Depth Normal 02/14/19 13:29 Respiratory Pattern Normal 02/14/19 13:29 Blood Pressure 137/72 02/14/19 19:00 Blood Pressure Mean 100 02/14/19 00:01 Blood Pressure Position Supine 02/13/19 12:08 Pulse Oximetry 92 L 02/14/19 19:00 Oxygen Delivery Method Nasal Cannula 02/14/19 19:00 Oxygen Flow Rate 3 02/14/19 19:00 Fraction of Inspired Oxygen (FIO2) 40 02/11/19 23:50 Pain Level 0 02/14/19 17:17 Comment 02/14/19 03:55 Intake & Output 02/13/19 02/14/19 02/14/19 23:59 11:59 23:59 Intake Total 1027.5 / 2194.250 1690 / 2306 616 / 2306 Output Total 175 / 3525 1400 / 2400 1000 / 2400 Balance 852.5 / -1330.750 290 / -94 -384 / -94 Weight 73.6 kg Intake: IV 412.5 / 1099.250 400 / 500 100 / 500 Oral 615 / 1095 1290 / 1530 240 / 1530 Blood Product 276 / 276 Rbc Leuko Reduced Unit 276 / 276 [id number] Output: Urine 175 / 3525 1400 / 2400 1000 / 2400 Other: Urine Color Light Emma Yellow Yellow Urine Appearance Clear Clear Clear Comment Paulson draining light emma urine. Stool Occult Blood Positive Stool Size Large Large Stool Characteristics Soft Liquid Formed Brown Brown Bloody Black Laboratory Results WBC 13.83 k/cumm (4.4-10.8) H D 02/14/19 16:45 RBC 2.17 m/cumm (4.50-6.00) L 02/14/19 16:45 Hgb 6.6 g/dL (13.5-17.5) L* 02/14/19 16:45 Hct 22.3 % (40.0-50.0) L 02/14/19 16:45 MCV 102.8 fL (80-95) H 02/14/19 16:45 MCH 30.4 pg (27.0-33.0) 02/14/19 16:45 MCHC 29.6 g/dL (32.0-36.0) L 02/14/19 16:45 RDW 18.4 % (11.8-14.1) H 02/14/19 16:45 Plt Count 277 x1000/uL (130-400) 02/14/19 16:45 MPV 9.6 fL (8.0-11.0) 02/14/19 16:45 Immature Gran % 0.3 02/14/19 06:25 Neutrophils % 84.9 02/14/19 06:25 Band Neutrophils % 2.0 % 02/09/19 14:00 Lymphocytes % 6.6 02/14/19 06:25 Monocytes % 8.0 02/14/19 06:25 Eosinophils % 0.0 02/14/19 06:25 Basophils % 0.2 02/14/19 06:25 Absolute Neutrophils 5.63 k/cumm (1.2-6.7) 02/14/19 06:25 Absolute Lymphocytes 0.44 k/cumm (1.2-3.4) L 02/14/19 06:25 Absolute Monocytes 0.53 k/cumm (0.11-0.7) 02/14/19 06:25 Absolute Eosinophils 0.00 k/cumm (0.0-0.7) 02/14/19 06:25 Absolute Basophils 0.01 k/cumm (0.0-0.2) 02/14/19 06:25 Nucleated RBCs 1 /100WBC 02/09/19 14:00 Differential Comment Rbc morph reviewed 02/14/19 06:25 RBC Morphology See below 02/14/19 06:25 Polychromasia Present 02/14/19 06:25 Hypochromasia 2+ 02/14/19 06:25 Poikilocytosis 2+ 02/14/19 06:25 Basophilic Stippling Present 02/09/19 14:00 Anisocytosis 2+ 02/14/19 06:25 Microcytosis 1+ 02/14/19 06:25 Macrocytosis 2+ 02/14/19 06:25 Stomatocytes 2+ 02/09/19 14:00 PT 13.1 sec (9.3-11.0) H 02/09/19 14:00 INR 1.3 (0.9-1.1) H 02/09/19 14:00 APTT 29.2 sec (21.0-31.4) 02/09/19 14:00 Sample Site Right radial 02/09/19 15:35 pCO2 40 mmHg (34-47) 02/09/19 15:35 pO2 95 mmHg (83-108) 02/09/19 15:35 O2 Saturation 98 % (94-98) 02/09/19 15:35 ABG pH 7.48 (7.35-7.45) H 02/09/19 15:35 ABG HCO3 29 mmol/L (22-28) H 02/09/19 15:35 ABG Total CO2 27 mmol/L (22-29) 02/09/19 15:35 ABG Base Excess 5.8 mmol/L (-3-3) H 02/09/19 15:35 Oxygen Liter Flow Bipap L 02/09/19 15:35 FiO2 50 % 02/09/19 15:35 Sodium 137 mmol/L (136-145) 02/14/19 16:45 Potassium 4.0 mmol/L (3.5-5.1) 02/14/19 16:45 Chloride 97 mmol/L (98-107) L 02/14/19 16:45 Carbon Dioxide 33.8 mmol/L (21.0-32.0) H 02/14/19 16:45 Anion Gap 6.2 mmol/L (3-11) 02/14/19 16:45 BUN 41 mg/dL (7-18) H D 02/14/19 16:45 Creatinine 1.12 mg/dL (0.70-1.30) 02/14/19 16:45 Estimated GFR/1.73 m2 >= 60.00 (mL/min/1.73m2) 02/14/19 16:45 Glucose 198 mg/dL (70-100) H 02/14/19 16:45 Lactate 1.2 mmol/l (0.6-1.4) 02/09/19 17:55 Calcium 8.3 mg/dL (8.5-10.1) L 02/14/19 16:45 Magnesium 1.8 mg/dL (1.8-2.4) 02/14/19 06:25 Total Bilirubin 0.7 mg/dL (0.2-1.0) 02/09/19 14:00 AST 16 U/L (15-37) 02/09/19 14:00 ALT 9 U/L (12-78) L 02/09/19 14:00 Alkaline Phosphatase 112 U/L (46-116) 02/09/19 14:00 Troponin I 0.69 ng/mL (0.00-0.06) H* 02/11/19 06:30 NT-Pro-B Natriuret Pep 8651 pg/mL (-299) H 02/09/19 14:00 Total Protein 7.4 g/dL (6.4-8.2) 02/09/19 14:00 Albumin 3.3 g/dL (3.4-5.0) L 02/09/19 14:00 Triglycerides 50 mg/dL (30-150) 02/10/19 06:32 Total Cholesterol 106 mg/dL (50-200) 02/10/19 06:32 LDL Cholesterol Direct 59 mg/dL (<100) 02/10/19 06:32 HDL Cholesterol 43 mg/dL (40-60) 02/10/19 06:32 TSH 0.57 uIU/mL (0.358-3.74) 02/10/19 06:32 Urine Color Yellow (Yellow) 02/09/19 15:00 Urine Clarity Clear 02/09/19 15:00 Urine pH 6.0 (5-8) 02/09/19 15:00 Ur Specific [place] 1.015 (1.005-1.025) 02/09/19 15:00 Urine Protein 100 mg/dL (Negative) H 02/09/19 15:00 Urine Ketones Negative mg/dL (Negative) 02/09/19 15:00 Urine Blood Trace-intact (Negative) H 02/09/19 15:00 Urine Nitrite Negative (Negative) 02/09/19 15:00 Urine Bilirubin Negative (Negative) 02/09/19 15:00 Urine Urobilinogen 0.2 EU/dL (Up TO 0.2) 02/09/19 15:00 Ur Leukocyte Esterase Negative (Negative) 02/09/19 15:00 Urine RBC 0-2 (0-2) 02/09/19 15:00 Urine WBC 0-2 HPF (0-5) 02/09/19 15:00 Ur Epithelial Cells Rare HPF (Negative) 02/09/19 15:00 Urine Crystals Negative HPF (Negative) 02/09/19 15:00 Urine Bacteria Rare HPF (Negative) 02/09/19 15:00 Urine Casts 0-2 hyaline LPF (Negative) 02/09/19 15:00 Urine Mucus Trace (Negative) 02/09/19 15:00 Urine Other Rare renal (Negative) 02/09/19 15:00 Ur Culture Indicated? No 02/09/19 15:00 Urine Glucose Negative mg/dL (Negative) 02/09/19 15:00 Vancomycin Trough 21.2 ug/mL (10.0-20.0) H* 02/13/19 09:05 Path Cons Comment See comment 02/09/19 14:00 Patient ABO/Rh A Positive 02/14/19 14:38 Antibody Screen Negative 02/14/19 14:38 Crossmatch See Detail 02/14/19 14:38
--- NOTE | 2019-02-14 19:24 | PGE_ITS ---
Date of Service Date of service: 02/14/19 Time of Service: 19:12 Assessment and Plan (1) Anemia: Current visit: Yes Status: Chronic Low but stable Hgb, with recently reported GIB. Patient actually reports multiple prior bouts of bleeding, and also with multiple endoscopies without any noted pathology. Question possible AVMs as potential source of bleeding. Have requested records f alee [facility], where he reports having had his work-up in the past. Mechanical DVT prophylaxis has been on hold - will hold aspirin as well, and continue BID PPI and Sucralfate. Monitor H/H closely. (2) Sepsis: Current visit: Yes Status: Acute Resolved with treatment of pneumonia. (3) HCAP (healthcare-associated pneumonia): Current visit: Yes Status: Acute Continue day # 6 of Vancomycin and Pip-Tazo. MRSA screen positive, and rapid flu negative. Blood Cultures with NG X 120 Hours. Will plan on one additional day of antibiotic therapy. Breathing appears at baseline in patient with underlying COPD and on home O2. (4) COPD (chronic obstructive pulmonary disease): Current visit: Yes Status: Chronic Continue antibiotics, duonebs as needed, and wean steroids as able. (5) Atrial fibrillation: Current visit: Yes Status: Chronic Converted to NSR. Continue oral Cardizem and BB therapy. Merits a nticoagulation with a ChadsVasc2 score of 5, but given recent and now current GI Bleed is not a candidate currently. Continue to monitor on telemetry. ECHO results as above. (6) NSTEMI (non-ST elevated myocardial infarction): Current visit: Yes Status: Acute Demand Ischemia in setting of infection, hypoxia, and Afib with RVR. Troponin downtrended. Continue ervin high potency statin, and BB therapy. ASA on hold. (7) Acute CHF: Current visit: Yes Status: Acute Right sided systolic CHF, with noted Diastolic heart failure and fairly significant valvulopathy with moderate , and moderate to severe MR. CHF in the setting of AFib with RVR. Appears closer to euvolemic. Furosemide gtt discontinued, and patient back on once daily diuretic tehrapy. Monitor daily weights carefully. (8) CAD (coronary artery disease): Current visit: Yes Status: Chronic Noted, with Type 2 NSTEMI as above. Continue ASA, statin, BB. (9) Lung mass: Current visit: Yes Status: Acute Noted lung mass with mediastinal LAD. Per lengthy discussion with patient and his family, it appears that he may have had this mass for a number of years. His relatives relayed that per discussion with his PCP Dr. Godoy at [facility], this has been evaluated in the past. They also remember being told by [facility] a number of years ago of a 'spot on his lungs'. Will attempt to aquire records. (10) DVT prophylaxis: Current visit: Yes Status: Acute Avoid chemical prophylaxis given GI bleed. Ensure SCDs and TEDs. (11) Advance directive on file: Current visit: Yes Status: Acute DNR/DNI Subjective Interval history since last seen: 78 year old man with a prior medical history significant for a recent hospitalization and treatment for pneumonia, admitted from [facility] Emergency Department on 02/09 with a diagnosis of sepsis and RLL Pneumonia. Mr. 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 He was recented treated for pneumonia at [facility] between 01/02 and 01/26/19. He also had apparent GI bleed on that admission due to gastritis, and BPH with urinary retention. He was sent to [facility] and rehab for [facility] and PT. He presented to the ED with complaints of SOB, and was found to be hypoxic to the 80's on 3L (described as his baseline), in acute CHF, with an altered mental status. He was placed on BIPAP and diuresed. He was also found to have a RLL pneumonia, suspicious for aspiration. He went into rapid Afib with HR up to 170's. He was placed on cardizem gtt and admitted for further evaluation and treatment. Of note, he also has a lung mass by imaging. The patient was empirically treated for HCAP with combination of Vancomycin and Pip-Tazo. Speech Therapy has evaluated the patient and without any evidence of aspiration risk. He has since converted back to NSR, but also showed a minimal elevation in troponin deemed very likely demand in nature. The patient was maintained on a lasix drip with excellent output, treated for CHF - his ECHO showed a normal LVEF, DD, Moderate with moderate to severe MR, moderately reduced RV Function, and Significant PHTN. Mr. Hyman's Hemoglobin had been stable in the 8's range and stable. He has a history of GIB, with previously reported negative endoscopies. Today his Hemoglobin dropped slightly to 7.7, and he was reported to start having dark stools with scant blood. He was ordered 2 Units of PRBCs, but prior to receiving them suffered an unresponsive episode while on the commode. He regained con sciousness with essentially stable vitals without intervention, but a repeat CBC showed his Hgb to have dropped to 6.6. No other events were reported overnight. He remains afebrile. Exam Narrative Exam Narrative: General: Patient appeared initially comfortable sitting out of bed in chair, AAOX3, NAD. At time of his syncopal episode he was found to be pale, clammy and cold, initially unresponsive but then regained consciousness with appropriate mental status following. Neck: Supple CV: Regular, nontachycardic, S1S2. 3/6 LLSB and RUSB murmurs appreciated. Pulmonary: Continued decreased right base breath sounds but improved, minimal left basilar crackles. No wheezing. Abdomen: + Bowel Sounds, soft, nontender, nondistended Vascular: Mild bilateral lower extremity edema Psych: Normal mood and affect. Objective Objective Clinical Data: Abnormal lab results 02/14/19 02/14/19 02/14/19 Range/Units 06:25 06:25 14:38 WBC (4.4-10.8) k/cumm RBC 2.64 L (4.50-6.00) m/cumm Hgb 7.7 L (13.5-17.5) g/dL Hct 27.2 L (40.0-50.0) % MCV 103.0 H (80-95) fL MCHC 28.3 L (32.0-36.0) g/dL RDW 18.4 H (11.8-14.1) % Absolute Lymphocytes 0.44 L (1.2-3.4) k/cumm Chloride (98-107) mmol/L Carbon Dioxide 35.5 H (21.0-32.0) mmol/L BUN 30 H (7-18) mg/dL Glucose 147 H (70-100) mg/dL Calcium 8.3 L (8.5-10.1) mg/dL Crossmatch See Detail 02/14/19 02/14/19 Range/Units 16:45 16:45 WBC 13.83 H D (4.4-10.8) k/cumm RBC 2.17 L (4.50-6.00) m/cumm Hgb 6.6 L* (13.5-17.5) g/dL Hct 22.3 L (40.0-50.0) % MCV 102.8 H (80-95) fL MCHC 29.6 L (32.0-36.0) g/dL RDW 18.4 H (11.8-14.1) % Absolute Lymphocytes (1.2-3.4) k/cumm Chloride 97 L (98-107) mmol/L Carbon Dioxide 33.8 H (21.0-32.0) mmol/L BUN 41 H D (7-18) mg/dL Glucose 198 H (70-100) mg/dL Calcium 8.3 L (8.5-10.1) mg/dL Crossmatch Vital Signs Temperature 36.5 C 02/14/19 19:00 Temperature Source Tympanic 02/14/19 15:53 Pulse 74 02/14/19 19:00 Pulse Rhythm Regular 02/14/19 13:29 Pulse 72 02/14/19 00:02 Respiratory Rate 24 02/14/19 19:00 Respiratory Effort 02/14/19 13:29 Respiratory Depth Normal 02/14/19 13:29 Respiratory Pattern Normal 02/14/19 13:29 Blood Pressure 137/72 02/14/19 19:00 Blood Pressure Mean 100 02/14/19 00:01 Blood Pressure Position Supine 02/13/19 12:08 Pulse Oximetry 92 L 02/14/19 19:00 Oxygen Delivery Method Nasal Cannula 02/14/19 19:00 Oxygen Flow Rate 3 02/14/19 19:00 Fraction of Inspired Oxygen (FIO2) 40 02/11/19 23:50 Pain Level 0 02/14/19 17:17 Comment 02/14/19 03:55 Intake & Output 02/13/19 02/14/19 02/14/19 23:59 11:59 23:59 Intake Total 1027.5 / 2194.250 1690 / 2306 616 / 2306 Output Total 175 / 3525 1400 / 2400 1000 / 2400 Balance 852.5 / -1330.750 290 / -94 -384 / -94 Weight 73.6 kg Intake: IV 412.5 / 1099.250 400 / 500 100 / 500 Oral 615 / 1095 1290 / 1530 240 / 1530 Blood Product 276 / 276 Rbc Leuko Reduced Unit 276 / 276 [id number] Output: Urine 175 / 3525 1400 / 2400 1000 / 2400 Other: Urine Color Light Emma Yellow Yellow Urine Appearance Clear Clear Clear Comment Paulson draining light emma urine. Stool Occult Blood Positive Stool Size Large Large Stool Characteristics Soft Liquid Formed Brown Brown Bloody Black Laboratory Results WBC 13.83 k/cumm (4.4-10.8) H D 02/14/19 16:45 RBC 2.17 m/cumm (4.50-6.00) L 02/14/19 16:45 Hgb 6.6 g/dL (13.5-17.5) L* 02/14/19 16:45 Hct 22.3 % (40.0-50.0) L 02/14/19 16:45 MCV 102.8 fL (80-95) H 02/14/19 16:45 MCH 30.4 pg (27.0-33.0) 02/14/19 16:45 MCHC 29.6 g/dL (32.0-36.0) L 02/14/19 16:45 RDW 18.4 % (11.8-14.1) H 02/14/19 16:45 Plt Count 277 x1000/uL (130-400) 02/14/19 16:45 MPV 9.6 fL (8.0-11.0) 02/14/19 16:45 Immature Gran % 0.3 02/14/19 06:25 Neutrophils % 84.9 02/14/19 06:25 Band Neutrophils % 2.0 % 02/09/19 14:00 Lymphocytes % 6.6 02/14/19 06:25 Monocytes % 8.0 02/14/19 06:25 Eosinophils % 0.0 02/14/19 06:25 Basophils % 0.2 02/14/19 06:25 Absolute Neutrophils 5.63 k/cumm (1.2-6.7) 02/14/19 06:25 Absolute Lymphocytes 0.44 k/cumm (1.2-3.4) L 02/14/19 06:25 Absolute Monocytes 0.53 k/cumm (0.11-0.7) 02/14/19 06:25 Absolute Eosinophils 0.00 k/cumm (0.0-0.7) 02/14/19 06:25 Absolute Basophils 0.01 k/cumm (0.0-0.2) 02/14/19 06:25 Nucleated RBCs 1 /100WBC 02/09/19 14:00 Differential Comment Rbc morph reviewed 02/14/19 06:25 RBC Morphology See below 02/14/19 06:25 Polychromasia Present 02/14/19 06:25 Hypochromasia 2+ 02/14/19 06:25 Poikilocytosis 2+ 02/14/19 06:25 Basophilic Stippling Present 02/09/19 14:00 Anisocytosis 2+ 02/14/19 06:25 Microcytosis 1+ 02/14/19 06:25 Macrocytosis 2+ 02/14/19 06:25 Stomatocytes 2+ 02/09/19 14:00 PT 13.1 sec (9.3-11.0) H 02/09/19 14:00 INR 1.3 (0.9-1.1) H 02/09/19 14:00 APTT 29.2 sec (21.0-31.4) 02/09/19 14:00 Sample Site Right radial 02/09/19 15:35 pCO2 40 mmHg (34-47) 02/09/19 15:35 pO2 95 mmHg (83-108) 02/09/19 15:35 O2 Saturation 98 % (94-98) 02/09/19 15:35 ABG pH 7.48 (7.35-7.45) H 02/09/19 15:35 ABG HCO3 29 mmol/L (22-28) H 02/09/19 15:35 ABG Total CO2 27 mmol/L (22-29) 02/09/19 15:35 ABG Base Excess 5.8 mmol/L (-3-3) H 02/09/19 15:35 Oxygen Liter Flow Bipap L 02/09/19 15:35 FiO2 50 % 02/09/19 15:35 Sodium 137 mmol/L (136-145) 02/14/19 16:45 Potassium 4.0 mmol/L (3.5-5.1) 02/14/19 16:45 Chloride 97 mmol/L (98-107) L 02/14/19 16:45 Carbon Dioxide 33.8 mmol/L (21.0-32.0) H 02/14/19 16:45 Anion Gap 6.2 mmol/L (3-11) 02/14/19 16:45 BUN 41 mg/dL (7-18) H D 02/14/19 16:45 Creatinine 1.12 mg/dL (0.70-1.30) 02/14/19 16:45 Estimated GFR/1.73 m2 >= 60.00 (mL/min/1.73m2) 02/14/19 16:45 Glucose 198 mg/dL (70-100) H 02/14/19 16:45 Lactate 1.2 mmol/l (0.6-1.4) 02/09/19 17:55 Calcium 8.3 mg/dL (8.5-10.1) L 02/14/19 16:45 Magnesium 1.8 mg/dL (1.8-2.4) 02/14/19 06:25 Total Bilirubin 0.7 mg/dL (0.2-1.0) 02/09/19 14:00 AST 16 U/L (15-37) 02/09/19 14:00 ALT 9 U/L (12-78) L 02/09/19 14:00 Alkaline Phosphatase 112 U/L (46-116) 02/09/19 14:00 Troponin I 0.69 ng/mL (0.00-0.06) H* 02/11/19 06:30 NT-Pro-B Natriuret Pep 8651 pg/mL (-299) H 02/09/19 14:00 Total Protein 7.4 g/dL (6.4-8.2) 02/09/19 14:00 Albumin 3.3 g/dL (3.4-5.0) L 02/09/19 14:00 Triglycerides 50 mg/dL (30-150) 02/10/19 06:32 Total Cholesterol 106 mg/dL (50-200) 02/10/19 06:32 LDL Cholesterol Direct 59 mg/dL (<100) 02/10/19 06:32 HDL Cholesterol 43 mg/dL (40-60) 02/10/19 06:32 TSH 0.57 uIU/mL (0.358-3.74) 02/10/19 06:32 Urine Color Yellow (Yellow) 02/09/19 15:00 Urine Clarity Clear 02/09/19 15:00 Urine pH 6.0 (5-8) 02/09/19 15:00 Ur Specific [place] 1.015 (1.005-1.025) 02/09/19 15:00 Urine Protein 100 mg/dL (Negative) H 02/09/19 15:00 Urine Ketones Negative mg/dL (Negative) 02/09/19 15:00 Urine Blood Trace-intact (Negative) H 02/09/19 15:00 Urine Nitrite Negative (Negative) 02/09/19 15:00 Urine Bilirubin Negative (Negative) 02/09/19 15:00 Urine Urobilinogen 0.2 EU/dL (Up TO 0.2) 02/09/19 15:00 Ur Leukocyte Esterase Negative (Negative) 02/09/19 15:00 Urine RBC 0-2 (0-2) 02/09/19 15:00 Urine WBC 0-2 HPF (0-5) 02/09/19 15:00 Ur Epithelial Cells Rare HPF (Negative) 02/09/19 15:00 Urine Crystals Negative HPF (Negative) 02/09/19 15:00 Urine Bacteria Rare HPF (Negative) 02/09/19 15:00 Urine Casts 0-2 hyaline LPF (Negative) 02/09/19 15:00 Urine Mucus Trace (Negative) 02/09/19 15:00 Urine Other Rare renal (Negative) 02/09/19 15:00 Ur Culture Indicated? No 02/09/19 15:00 Urine Glucose Negative mg/dL (Negative) 02/09/19 15:00 Vancomycin Trough 21.2 ug/mL (10.0-20.0) H* 02/13/19 09:05 Path Cons Comment See comment 02/09/19 14:00 Patient ABO/Rh A Positive 02/14/19 14:38 Antibody Screen Negative 02/14/19 14:38 Crossmatch See Detail 02/14/19 14:38
[2019-02-14] MEDS: Patch Removal 1 EACH TP (21:16)
[2019-02-14] MEDS: Budesonide/Formoterol 160/4.5 6 GM 60 PUFF INH IH (21:16)
[2019-02-14] MEDS: Rosuvastatin 10 MG TAB PO (21:17)
[2019-02-15] VITALS (7 sets, daily range): BP systolic 122–135; BP diastolic 52–71; PULSE 62–64; RESP 18–24; TEMP 36.1–36.8; O2SAT 92–98
[2019-02-15] MEDS: oxyCODONE 5 MG TAB PO ×4 (00:10→17:51)
[2019-02-15 00:12] LABS: HCT 25.7 % (40.0-50.0); HGB 8.2 g/dL (13.5-17.5)
[2019-02-15] MEDS: Normal Saline Flush 10 ML SYR IVP ×5 (02:20→22:10)
[2019-02-15] MEDS: PIPERACILLIN/TAZO 4.5 GM in Normal Saline 100 ML IVPB ×3 (06:09→22:00)
[2019-02-15 07:17] LABS: HCT 26.3 % (40.0-50.0); HGB 8.1 g/dL (13.5-17.5); Mean Corp. HGB Concentration 30.8 g/dL (32.0-36.0); Mean Corpuscular Hemoglobin 29.5 pg (27.0-33.0); Mean Corpuscular Volume 95.6 fL (80-95); Platelet Count 216 x1000/uL (130-400); RBC 2.75 m/cumm (4.50-6.00); RBC Distribution Width 18.9 % (11.8-14.1); White Blood Cell Count 8.69 k/cumm (4.4-10.8)
[2019-02-15 07:34] LABS: BUN 37 mg/dL (7-18); CREATININE 0.97 mg/dL (0.70-1.30); Calcium 8.4 mg/dL (8.5-10.1); Glucose 130 mg/dL (70-100); Magnesium 1.8 mg/dL (1.8-2.4)
[2019-02-15 08:02] LABS: Chloride 99 mmol/L (98-107); Potassium 3.7 mmol/L (3.5-5.1); Sodium 137 mmol/L (136-145)
[2019-02-15 08:21] LABS: Absolute Lymphocyte Count 0.61 k/cumm (1.2-3.4); Absolute Monocyte Count 0.35 k/cumm (0.11-0.7); Absolute Neutrophil Count 7.65 k/cumm (1.2-6.7); Atypical Lymphocytes % 1
[2019-02-15 08:22] LABS: Absolute Basophil Count 0.09 k/cumm (0.0-0.2); Anisocytosis 2+; Basophilic Stippling Present; Diff Comment Manual Differential; Hypochromasia 2+; Nucleated RBC 1 /100WBC; Polychromasia Present
--- NOTE | 2019-02-15 08:52 | CMPROGNOTE_ITS ---
- If Service Date Differs Date of service: 02/15/19 Time of Service: 08:51 Care Management Progress Note S/O:Dave remains acute today. He did have an episode yeserday late afternoon when he became unresponsive and was hypotensive. Today he is sitting up in the chair his sisters are into visit him. He received two units of PRC's for low H/H. His Hgb today is stable. He continues to receive IV antibiotics. He will return to [facility] when he is medically ready. CM faxed referrals to [facility] and [facility] there are no available beds at this time. He would like to be closer to his family in [place]. For now he will plan to return to [facility] when ready. Dave will be transported [facility] to [facility]. A:Dave is a 78 year old male admitted with sepsis, r/t pneumonia P:Dave remains on IV antibiotics continues to monitor labs including hgb and hct. No change in acute status today. Dave will return to [facility] when medically ready. CM has updated family and facility discharge planning and disposition.
[2019-02-15] MEDS: Folic Acid 1 MG TAB PO (09:04)
[2019-02-15] MEDS: Allopurinol 300 MG TAB PO (09:04)
[2019-02-15] MEDS: predniSONE 20 MG TAB 40 MG PO ×2 (09:04→19:59)
[2019-02-15] MEDS: Lidocaine 5% Patch 1 PATCH TD (09:04)
[2019-02-15] MEDS: Furosemide 40 MG TAB PO (09:04)
[2019-02-15] MEDS: Metoprolol CR 50 MG TABCR PO (09:04)
[2019-02-15] MEDS: Gabapentin 300 MG CAP PO ×3 (09:04→19:59)
[2019-02-15] MEDS: Primidone 50 MG TAB PO ×3 (09:05→19:58)
[2019-02-15] MEDS: Thiamine 100 MG TAB PO (09:05)
[2019-02-15] MEDS: Multivitamin TAB 1 TAB PO (09:05)
[2019-02-15] MEDS: Calcium 600mg/Vit D 200U TAB 1 TAB PO ×3 (09:06→19:58)
[2019-02-15] MEDS: Sucralfate 1 GM TAB PO ×4 (09:06→22:00)
[2019-02-15] MEDS: Finasteride 5 MG TAB PO (09:06)
[2019-02-15] MEDS: dilTIAZem 30 MG TAB PO ×3 (09:06→19:58)
[2019-02-15] MEDS: Ferrous Sulfate 325 MG TAB PO ×2 (09:06→19:59)
[2019-02-15] MEDS: Tamsulosin 0.4 MG CAPCR 0.8 MG PO (09:06)
[2019-02-15] MEDS: Pantoprazole 40 MG VIAL IVP ×2 (09:06→19:59)
[2019-02-15] MEDS: Nicotine 14 MG/24 HR PATCH TD (09:07)
--- NOTE | 2019-02-15 11:19 | OT.INTREAT ---
Date of service: 02/15/19 Time of Service: 10:20 Occupational Therapy Notes Occupational Therapy Inpatient Treatment Note Date: 02/15/19 PRECAUTIONS: Fall, Contact SUBJECTIVE: Pt was lying in bed when OT arrived. He reports that he is feeling a little better. He is agreeable to OT session. Pt did have some labored breathing at the start of OT session. Dr. Fuentes did come in to meet with pt and assessed pts breathing at this time. OBJECTIVE: PAIN:No c/o pain BATHING: Sitting in bed with max (A) set up Upper Body: (I) (B) arms from the elbow down, (I) lower abdomen, max (A) face, upper abdomen and back. with min vc Lower Body: Able to wash upper thighs then max (A) for (B) LE DRESSING: Sitting in bed Upper Extremity: Max (A) donning and doing [facility] gown Lower Extremity: NT GROOMING: Pt denies brushing teeth, Mod (A) brushing hair due to decreased functional activity tolerance. TOILETING: Paulson and NT EATING: NT ASSESSMENT/PLAN: Pt was more receptive to OT services today. He was able to demonstrate dressing and bathing routines with decreased (I) and performed this in the sitting position in his bed. He overall was tired post ADL routines. He would benefit from continued skilled OT services for progression of ADLs, education on energy conservation and increased functional activity tolerance. TREATMENT CODES/TIME: 22497e5, 30 minutes (10:20) [facility]
--- NOTE | 2019-02-15 11:26 | OTTR_ITS ---
Date of service: 02/15/19 Time of Service: 10:20 Occupational Therapy Notes Occupational Therapy Inpatient Treatment Note Date: 02/15/19 PRECAUTIONS: Fall, Contact SUBJECTIVE: Pt was lying in bed when OT arrived. He reports that he is feeling a little better. He is agreeable to OT session. Pt did have some labored breathing at the start of OT session. Dr. Fuentes did come in to meet with pt and assessed pts breathing at this time. OBJECTIVE: PAIN:No c/o pain BATHING: Sitting in bed with max (A) set up Upper Body: (I) (B) arms from the elbow down, (I) lower abdomen, max (A) face, upper abdomen and back. with min vc Lower Body: Able to wash upper thighs then max (A) for (B) LE DRESSING: Sitting in bed Upper Extremity: Max (A) donning and doing [facility] gown Lower Extremity: NT GROOMING: Pt denies brushing teeth, Mod (A) brushing hair due to decreased functional activity tolerance. TOILETING: Paulson and NT EATING: NT ASSESSMENT/PLAN: Pt was more receptive to OT services today. He was able to demonstrate dressing and bathing routines with decreased (I) and performed this in the sitting position in his bed. He overall was tired post ADL routines. He would benefit from continued skilled OT services for progression of ADLs, education on energy conservation and increased functional activity tolerance. TREATMENT CODES/TIME: 06805e3, 30 minutes (10:20) [facility]
[2019-02-15 15:15] LABS: Vancomycin, Trough 17.7 ug/mL (10.0-20.0)
[2019-02-15] MEDS: Normal Saline 500 ML 30 ML IV (15:43)
--- NOTE | 2019-02-15 16:01 | PT.INTREAT ---
Date of service: 02/15/19 Time of Service: 16:02 PT Notes Inpatient Physical Therapy Treatment Note [facility] Date: 02/15/19 PRECAUTIONS: Fall, contact SUBJECTIVE: States he is feeling better today, he is willing to participate in PT. OBJECTIVE: PAIN: No c/o pain BED MOBILITY/TRANSFERS Supine-sit: I Sit-supine: I Sit-stand: SBA Stand-sit: SBA GAIT Assistive Device: FWW in a.m.; ASSISTANT EDITOR, FWW in p.m. Weight bearing: Full Assist: CGA with FWW in a.m.; Min A with ASSISTANT EDITOR, SBA with FWW in p.m. Distance: 30' x2 in a.m.; 30' with ASSISTANT EDITOR + 30' with FWW in p.m. Deviation: Cueing for FWW mechanics, reaching for UE support with ASSISTANT EDITOR, SOB THEREX: Patient completed a series of standing exercises for LE strengthening and cardiovascular conditioning, as per flow sheet. Patient required frequent seated rests for recovery from SOB. NEURO RE-ED: Patient completed a static balance retraining and proprioceptive program, completing SLS, tandem stance, and feet together with eyes closed activities. Patient required CGA?Mod A and gait belt for all activities. ASSESSMENT: Patient tolerated sessions well, although required frequent rests due to SOB and fatigue. Patient demonstrates unsteady gait with ASSISTANT EDITOR versus FWW. Patient would benefit from continued gait training as well as continued strengthening and general conditioning, and balance retraining for improved mobility, and improved ability to perform daily functional tasks safely at a more independent level. PLAN: Continue with PTs POC TREATMENT CODE/TIME: Session 1: 30 minutes; 59502, 11021 Session 2: 30 minutes; 91311, 00026
--- NOTE | 2019-02-15 16:10 | PTTR_ITS ---
Date of service: 02/15/19 Time of Service: 16:02 PT Notes Inpatient Physical Therapy Treatment Note [facility] Date: 02/15/19 PRECAUTIONS: Fall, contact SUBJECTIVE: States he is feeling better today, he is willing to participate in PT. OBJECTIVE: PAIN: No c/o pain BED MOBILITY/TRANSFERS Supine-sit: I Sit-supine: I Sit-stand: SBA Stand-sit: SBA GAIT Assistive Device: FWW in a.m.; NURSE INSTRUCTOR, FWW in p.m. Weight bearing: Full Assist: CGA with FWW in a.m.; Min A with NURSE INSTRUCTOR, SBA with FWW in p.m. Distance: 30' x2 in a.m.; 30' with NURSE INSTRUCTOR + 30' with FWW in p.m. Deviation: Cueing for FWW mechanics, reaching for UE support with NURSE INSTRUCTOR, SOB THEREX: Patient completed a series of standing exercises for LE strengthening and cardiovascular conditioning, as per flow sheet. Patient required frequent seated rests for recovery from SOB. NEURO RE-ED: Patient completed a static balance retraining and proprioceptive program, completing SLS, tandem stance, and feet together with eyes closed activities. Patient required CGA?Mod A and gait belt for all activities. ASSESSMENT: Patient tolerated sessions well, although required frequent rests due to SOB and fatigue. Patient demonstrates unsteady gait with NURSE INSTRUCTOR versus FWW. Patient would benefit from continued gait training as well as continued strengthening and general conditioning, and balance retraining for improved mo bility, and improved ability to perform daily functional tasks safely at a more independent level. PLAN: Continue with PTs POC TREATMENT CODE/TIME: Session 1: 30 minutes; [id number], [id number] Session 2: 30 minutes; 32211, [id number]
[2019-02-15 19:06] LABS: HCT 25.2 % (40.0-50.0)
[2019-02-15] MEDS: Docusate Sodium 100 MG CAP PO (19:59)
[2019-02-15] MEDS: Rosuvastatin 10 MG TAB PO (19:59)
[2019-02-15] MEDS: Patch Removal 1 EACH TP (20:05)
--- NOTE | 2019-02-15 20:07 | W.PM.PROGNOT ---
Date of Service Date of service: 02/15/19 Time of Service: 20:07 Assessment and Plan (1) Anemia: Current visit: Yes Status: Chronic Last EGD 01/14 with evidence of gastritis per report. Current Hgb holding stable following transfusion. Chemical DVT prophylaxis and aspirin remain on hold. Continue BID PPI and QID Sucralfate. Monitor H/H closely, with repeat also stable. (2) Sepsis: Current visit: Yes Status: Acute Resolved with treatment of pneumonia. (3) HCAP (healthcare-associated pneumonia): Current visit: Yes Status: Acute Continue day # 6 of Vancomycin and Pip-Tazo. MRSA screen positive, and rapid flu negative. Blood Cultures with NG X 120 Hours. Will plan on one additional day of antibiotic therapy. Breathing appears at baseline in patient with underlying COPD and on home O2. (4) COPD (chronic obstructive pulmonary disease): Current visit: Yes Status: Chronic Continue antibiotics, duonebs as needed, and wean steroids as able. (5) Atrial fibrillation: Current visit: Yes Status: Chronic Converted to NSR. Continue oral Cardizem and BB therapy. Merits anticoagulation with a ChadsVasc2 score of 5, but given recent and now current GI Bleed is not a candidate currently. Continue to monitor on telemetry. ECHO results as above. (6) NSTEMI (non-ST elevated myocardial infarction): Current visit: Yes Status: Acute Demand Ischemia in setting of infection, hypoxia, and Afib with RVR. Troponin downtrended. Continue daily high potency statin, and BB therapy. ASA on hold. (7) Acute CHF: Current visit: Yes Status: Acute Right sided systolic CHF, with noted Diastolic heart failure and fairly significant valvulopathy with moderate , and moderate to severe MR. CHF in the setting of AFib with RVR. Appears closer to euvolemic. Furosemide gtt discontinued, and patient back on once daily diuretic therapy. Monitor daily weights carefully. (8) CAD (coronary artery disease): Current visit: Yes Status: Chronic Noted, with Type 2 NSTEMI as above. Continue ASA, statin, BB. (9) Lung mass: Current visit: Yes Status: Acute Noted lung mass with mediastinal LAD. Per lengthy discussion with patient and his family, it appears that he may have had this mass for a number of years. His relatives relayed that per discussion with his PCP Dr. Godoy at [facility], this has been evaluated in the past. They also remember being told by [facility] [place] ago of a 'spot on his lungs'. Records from [facility] indicate a long history of lung ca. (10) DVT prophylaxis: Current visit: Yes Status: Acute Avoid chemical prophylaxis given GI bleed. Ensure SCDs and TEDs. (11) Advance directive on file: Current visit: Yes Status: Acute DNR/DNI Subjective Interval history since last seen: 78 year old man with a prior medical history significant for a recent hospitalization and treatment for pneumonia, admitted from [facility] Emergency Department on 02/09 with a diagnosis of sepsis and RLL Pneumonia. Mr. 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 He was recented treated for pneumonia at [facility] between 01/02 and 01/26/19. He also had apparent GI bleed on that admission due to gastritis, and BPH with urinary retention. He was sent to [facility] and rehab for Half-Way and PT. He presented to the ED with complaints of SOB, and was found to be hypoxic to the 80's on 3L (described as his baseline), in acute CHF, with an altered mental status. He was placed on BIPAP and diuresed. He was also found to have a RLL pneumonia, suspicious for aspiration. He went into rapid Afib with HR up to 170's. He was placed on cardizem gtt and admitted for further evaluation and treatment. Of note, he also has a lung mass by imaging. The patient was empirically treated for HCAP with combination of Vancomycin and Pip-Tazo. Speech Therapy has evaluated the patient and without any evidence of aspiration risk. He has since converted back to NSR, but also showed a minimal elevation in troponin deemed very likely demand in nature. The patient was maintained on a lasix drip with excellent output, treated for CHF - his ECHO showed a normal LVEF, DD, Moderate with moderate to severe MR, moderately reduced RV Function, and Significant PHTN. Mr. Hyman's Hemoglobin had been stable in the 8's range and stable. He has a history of GIB during his recent hospitalization, and requiring transfusion with 4 units of PRBCs. EGD performed on 01/14 showed evidence of Gastritis. On 02/14 the patient's Hemoglobin dropped slightly to 7.7, and he was reported to start having dark stools with scant blood. He was ordered 2 Units of PRBCs, but prior to receiving them suffered an unresponsive episode while on the commode. He regained consciousness with essentially stable vitals without intervention, but a repeat CBC showed his Hgb to have dropped to 6.6. He responded to transfusion, with Hgb of 8.2. No other events were reported overnight. He remains afebrile. Exam Narrative Exam Narrative: General: Patient appears pale, sitting in bed, AAOX3, NAD. Neck: Supple CV: Regular, nontachycardic, S1S2. 3/6 LLSB and RUSB murmurs appreciated. Pulmonary: Continued decreased right base breath sounds but again improved, minimal left basilar crackles also improved. No wheezing. Abdomen: + Bowel Sounds, soft, nontender, nondistended Vascular: Mild bilateral lower extremity edema Psych: Normal mood and affect. Objective Objective Clinical Data: Abnormal lab results 02/14/19 02/15/19 02/15/19 Range/Units 14:38 00:00 06:45 RBC (4.50-6.00) m/cumm Hgb 8.2 L (13.5-17.5) g/dL Hct 25.7 L (40.0-50.0) % MCV (80-95) fL MCHC (32.0-36.0) g/dL RDW (11.8-14.1) % Absolute Neutrophils (1.2-6.7) k/cumm Absolute Lymphocytes (1.2-3.4) k/cumm Carbon Dioxide 33.0 H (21.0-32.0) mmol/L BUN 37 H (7-18) mg/dL Glucose 130 H (70-100) mg/dL Calcium 8.4 L (8.5-10.1) mg/dL Crossmatch See Detail 02/15/19 02/15/19 Range/Units 06:45 18:55 RBC 2.75 L (4.50-6.00) m/cumm Hgb 8.1 L 8.0 L (13.5-17.5) g/dL Hct 26.3 L 25.2 L (40.0-50.0) % MCV 95.6 H D (80-95) fL MCHC 30.8 L (32.0-36.0) g/dL RDW 18.9 H (11.8-14.1) % Absolute Neutrophils 7.65 H (1.2-6.7) k/cumm Absolute Lymphocytes 0.61 L (1.2-3.4) k/cumm Carbon Dioxide (21.0-32.0) mmol/L BUN (7-18) mg/dL Glucose (70-100) mg/dL Calcium (8.5-10.1) mg/dL Crossmatch Vital Signs Temperature 36.4 C L 02/15/19 16:14 Temperature Source Tympanic 02/15/19 16:14 Pulse 62 02/15/19 16:14 Pulse Rhythm Regular 02/15/19 15:30 Pulse 72 02/14/19 00:02 Respiratory Rate 18 02/15/19 16:14 Respiratory Effort 02/15/19 15:30 Respiratory Depth Deep 02/15/19 15:30 Respiratory Pattern Normal 02/15/19 15:30 Blood Pressure 135/69 02/15/19 16:14 Blood Pressure Mean 100 02/14/19 00:01 Blood Pressure Position Supine 02/13/19 12:08 Pulse Oximetry 98 02/15/19 16:14 Oxygen Delivery Method Nasal Cannula 02/15/19 16:14 Oxygen Flow Rate 3 02/15/19 16:14 Fraction of Inspired Oxygen (FIO2) 40 02/11/19 23:50 Pain Level 2 02/15/19 12:05 Comment 02/14/19 03:55 Intake & Output 02/14/19 02/15/19 02/15/19 23:59 11:59 23:59 Intake Total 1536 / 3226 1040 / 1876 836 / 1876 Output Total 2350 / 3750 850 / 3100 2250 / 3100 Balance -814 / -524 190 / -1224 -1414 / -1224 Weight 71.6 kg Intake: IV 430 / 830 340 / 696 356 / 696 Oral 480 / 1770 700 / 1180 480 / 1180 Blood Product 626 / 626 Rbc Leuko Reduced Unit 350 / 350 [id number] Rbc Leuko Reduced Unit 276 / 276 [id number] Output: Urine 2350 / 3750 850 / 3100 2250 / 3100 Other: Urine Color Yellow Yellow Yellow Urine Appearance Clear Clear Clear Urine Odor Normal Stool Occult Blood Positive Positive Stool Size Moderate Moderate Stool Characteristics Liquid Brown Black Bloody Voiding Methods Indwelling Catheter Laboratory Results WBC 8.69 k/cumm (4.4-10.8) D 02/15/19 06:45 RBC 2.75 m/cumm (4.50-6.00) L 02/15/19 06:45 Hgb 8.0 g/dL (13.5-17.5) L 02/15/19 18:55 Hct 25.2 % (40.0-50.0) L 02/15/19 18:55 MCV 95.6 fL (80-95) H D 02/15/19 06:45 MCH 29.5 pg (27.0-33.0) 02/15/19 06:45 MCHC 30.8 g/dL (32.0-36.0) L 02/15/19 06:45 RDW 18.9 % (11.8-14.1) H 02/15/19 06:45 Plt Count 216 x1000/uL (130-400) 02/15/19 06:45 MPV 10.0 fL (8.0-11.0) 02/15/19 06:45 Immature Gran % See Differential 02/15/19 06:45 Neutrophils % 88.0 02/15/19 06:45 Band Neutrophils % 2.0 % 02/09/19 14:00 Lymphocytes % 6.0 02/15/19 06:45 Atypical Lymphs % 1 02/15/19 06:45 Monocytes % 4.0 02/15/19 06:45 Eosinophils % 0.0 02/15/19 06:45 Basophils % 0.0 02/15/19 06:45 Myelocytes % 1.0 % 02/15/19 06:45 Absolute Neutrophils 7.65 k/cumm (1.2-6.7) H 02/15/19 06:45 Absolute Lymphocytes 0.61 k/cumm (1.2-3.4) L 02/15/19 06:45 Absolute Monocytes 0.35 k/cumm (0.11-0.7) 02/15/19 06:45 Absolute Eosinophils 0.00 k/cumm (0.0-0.7) 02/15/19 06:45 Absolute Basophils 0.09 k/cumm (0.0-0.2) 02/15/19 06:45 Nucleated RBCs 1 /100WBC 02/15/19 06:45 Differential Comment Manual differential 02/15/19 06:45 RBC Morphology See below 02/15/19 06:45 Polychromasia Present 02/15/19 06:45 Hypochromasia 2+ 02/15/19 06:45 Poikilocytosis 2+ 02/14/19 06:25 Basophilic Stippling Present 02/15/19 06:45 Anisocytosis 2+ 02/15/19 06:45 Microcytosis 1+ 02/14/19 06:25 Macrocytosis 2+ 02/14/19 06:25 Stomatocytes 2+ 02/09/19 14:00 PT 13.1 sec (9.3-11.0) H 02/09/19 14:00 INR 1.3 (0.9-1.1) H 02/09/19 14:00 APTT 29.2 sec (21.0-31.4) 02/09/19 14:00 Sample Site Right radial 02/09/19 15:35 pCO2 40 mmHg (34-47) 02/09/19 15:35 pO2 95 mmHg (83-108) 02/09/19 15:35 O2 Saturation 98 % (94-98) 02/09/19 15:35 ABG pH 7.48 (7.35-7.45) H 02/09/19 15:35 ABG HCO3 29 mmol/L (22-28) H 02/09/19 15:35 ABG Total CO2 27 mmol/L (22-29) 02/09/19 15:35 ABG Base Excess 5.8 mmol/L (-3-3) H 02/09/19 15:35 Oxygen Liter Flow Bipap L 02/09/19 15:35 FiO2 50 % 02/09/19 15:35 Sodium 137 mmol/L (136-145) 02/15/19 06:45 Potassium 3.7 mmol/L (3.5-5.1) 02/15/19 06:45 Chloride 99 mmol/L (98-107) 02/15/19 06:45 Carbon Dioxide 33.0 mmol/L (21.0-32.0) H 02/15/19 06:45 Anion Gap 5.0 mmol/L (3-11) 02/15/19 06:45 BUN 37 mg/dL (7-18) H 02/15/19 06:45 Creatinine 0.97 mg/dL (0.70-1.30) 02/15/19 06:45 Estimated GFR/1.73 m2 >= 60.00 (mL/min/1.73m2) 02/15/19 06:45 Glucose 130 mg/dL (70-100) H 02/15/19 06:45 Lactate 1.2 mmol/l (0.6-1.4) 02/09/19 17:55 Calcium 8.4 mg/dL (8.5-10.1) L 02/15/19 06:45 Magnesium 1.8 mg/dL (1.8-2.4) 02/15/19 06:45 Total Bilirubin 0.7 mg/dL (0.2-1.0) 02/09/19 14:00 AST 16 U/L (15-37) 02/09/19 14:00 ALT 9 U/L (12-78) L 02/09/19 14:00 Alkaline Phosphatase 112 U/L (46-116) 02/09/19 14:00 Troponin I 0.69 ng/mL (0.00-0.06) H* 02/11/19 06:30 NT-Pro-B Natriuret Pep 8651 pg/mL (-299) H 02/09/19 14:00 Total Protein 7.4 g/dL (6.4-8.2) 02/09/19 14:00 Albumin 3.3 g/dL (3.4-5.0) L 02/09/19 14:00 Triglycerides 50 mg/dL (30-150) 02/10/19 06:32 Total Cholesterol 106 mg/dL (50-200) 02/10/19 06:32 LDL Cholesterol Direct 59 mg/dL (<100) 02/10/19 06:32 HDL Cholesterol 43 mg/dL (40-60) 02/10/19 06:32 TSH 0.57 uIU/mL (0.358-3.74) 02/10/19 06:32 Urine Color Yellow (Yellow) 02/09/19 15:00 Urine Clarity Clear 02/09/19 15:00 Urine pH 6.0 (5-8) 02/09/19 15:00 Ur Specific [place] 1.015 (1.005-1.025) 02/09/19 15:00 Urine Protein 100 mg/dL (Negative) H 02/09/19 15:00 Urine Ketones Negative mg/dL (Negative) 02/09/19 15:00 Urine Blood Trace-intact (Negative) H 02/09/19 15:00 Urine Nitrite Negative (Negative) 02/09/19 15:00 Urine Bilirubin Negative (Negative) 02/09/19 15:00 Urine Urobilinogen 0.2 EU/dL (Up TO 0.2) 02/09/19 15:00 Ur Leukocyte Esterase Negative (Negative) 02/09/19 15:00 Urine RBC 0-2 (0-2) 02/09/19 15:00 Urine WBC 0-2 HPF (0-5) 02/09/19 15:00 Ur Epithelial Cells Rare HPF (Negative) 02/09/19 15:00 Urine Crystals Negative HPF (Negative) 02/09/19 15:00 Urine Bacteria Rare HPF (Negative) 02/09/19 15:00 Urine Casts 0-2 hyaline LPF (Negative) 02/09/19 15:00 Urine Mucus Trace (Negative) 02/09/19 15:00 Urine Other Rare renal (Negative) 02/09/19 15:00 Ur Culture Indicated? No 02/09/19 15:00 Urine Glucose Negative mg/dL (Negative) 02/09/19 15:00 Vancomycin Trough 17.7 ug/mL (10.0-20.0) 02/15/19 14:10 Path Cons Comment See comment 02/09/19 14:00 Patient ABO/Rh A Positive 02/14/19 14:38 Antibody Screen Negative 02/14/19 14:38 Crossmatch See Detail 02/14/19 14:38
--- NOTE | 2019-02-15 20:16 | PGE_ITS ---
Date of Service Date of service: 02/15/19 Time of Service: 20:07 Assessment and Plan (1) Anemia: Current visit: Yes Status: Chronic Last EGD 01/14 with evidence of gastritis per report. Current Hgb holding stable following transfusion. Chemical DVT prophylaxis and aspirin remain on hold. Continue BID PPI and QID Sucralfate. Monitor H/H closely, with repeat also stable. (2) Sepsis: Current visit: Yes Status: Acute Resolved with treatment of pneumonia. (3) HCAP (healthcare-associated pneumonia): Current visit: Yes Status: Acute Continue day # 6 of Vancomycin and Pip-Tazo. MRSA screen positive, and rapid flu negative. Blood Cultures with NG X 120 Hours. Will plan on one additional day of antibiotic therapy. Breathing appears at baseline in patient with underlying COPD and on home O2. (4) COPD (chronic obstructive pulmonary disease): Current visit: Yes Status: Chronic Continue antibiotics, duonebs as needed, and wean steroids as able. (5) Atrial fibrillation: Current visit: Yes Status: Chronic Converted to NSR. Continue oral Cardizem and BB therapy. Merits anticoag ulation with a ChadsVasc2 score of 5, but given recent and now current GI Bleed is not a candidate currently. Continue to monitor on telemetry. ECHO results as above. (6) NSTEMI (non-ST elevated myocardial infarction): Current visit: Yes Status: Acute Demand Ischemia in setting of infection, hypoxia, and Afib with RVR. Troponin downtrended. Continue daily high potency statin, and BB therapy. ASA on hold. (7) Acute CHF: Current visit: Yes Status: Acute Right sided systolic CHF, with noted Diastolic heart failure and fairly significant valvulopathy with moderate , and moderate to severe MR. CHF in the setting of AFib with RVR. Appears closer to euvolemic. Furosemide gtt discontinued, and patient back on once daily diuretic therapy. Monitor daily weights carefully. (8) CAD (coronary artery disease): Current visit: Yes Status: Chronic Noted, with Type 2 NSTEMI as above. Continue ASA, statin, BB. (9) Lung mass: Current visit: Yes Status: Acute Noted lung mass with mediastinal LAD. Per lengthy discussion with patient and his family, it appears that he may have had this mass for a number of years. His relatives relayed that per discussion with his PCP Dr. Godoy at [facility], this has been evaluated in the past. They also remember being told by [facility] [place] [facility] a number of years ago of a 'spot on his lungs'. Records from [facility] indicate a long history of lung ca. (10) DVT prophylaxis: Current visit: Yes Status: Acute Avoid chemical prophylaxis given GI bleed. Ensure SCDs and TEDs. (11) Advance directive on file: Current visit: Yes Status: Acute DNR/DNI Subjective Interval history since last seen: 78 year old man with a prior medical history significant for a recent hospitalization and treatment for pneumonia, admitted from [facility] Emergency Department on 02/09 with a diagnosis of sepsis and RLL Pneumonia. Mr. 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 He was recented treated for pneumonia at [facility] between 01/02 and 01/26/19. He also had apparent GI bleed on that admission due to gastritis, and BPH with urinary retention. He was sent to [facility] and rehab for Shelter and PT. He presented to the ED with complaints of SOB, and was found to be hypoxic to the 80's on 3L (described as his baseline), in acute CHF, with an altered mental status. He was placed on BIPAP and diuresed. He was also found to have a RLL pneumonia, suspicious for aspiration. He went into rapid Afib with HR up to 170's. He was placed on cardizem gtt and admitted for further evaluation and treatment. Of note, he also has a lung mass by imaging. The patient was empirically treated for HCAP with combination of Vancomycin and Pip-Tazo. Speech Therapy has evaluated the patient and without any evidence of aspiration risk. He has since converted back to NSR, but also showed a minimal elevation in troponin deemed very likely demand in nature. The patient was maintained on a lasix drip with excellent output, treated for CHF - his ECHO showed a normal LVEF, DD, Moderate with moderate to severe MR, moderately reduced RV Function, and Significant PHTN. Mr. Hyman's Hemoglobin had been stable in the 8's range and stable. He has a history of GIB during his recent hospitalization, and requiring transfusion with 4 units of PRBCs. EGD performed on 3/1 showed evidence of Gastritis. On 02/14 the patient's Hemoglobin dropped slightly to 7.7, and he was reported to start having dark stools with scant blood. He was ordered 2 Units of PRBCs, but prior to receiving them suffered an unresponsive episode while on the commode. He regained consciousness with essentially stable vitals without intervention, but a repeat CBC showed his Hgb to have dropped to 6.6. He responded to transfusion, with Hgb of 8.2. No other events were reported overnight. He remains afebrile. Exam Narrative Exam Narrative: General: Patient appears pale, sitting in bed, AAOX3, NAD. Neck: Supple CV: Regular, nontachycardic, S1S2. 3/6 LLSB and RUSB murmurs appreciated. Pulmonary: Continued decreased right base breath sounds but again improved, minimal left basilar crackles also improved. No wheezing. Abdomen: + Bowel Sounds, soft, nontender, nondistended Vascular: Mild bilateral lower extremity edema Psych: Normal mood and affect. Objective Objective Clinical Data: Abnormal lab results 02/14/19 02/15/19 02/15/19 Range/Units 14:38 00:00 06:45 RBC (4.50-6.00) m/cumm Hgb 8.2 L (13.5-17.5) g/dL Hct 25.7 L (40.0-50.0) % MCV (80-95) fL MCHC (32.0-36.0) g/dL RDW (11.8-14.1) % Absolute Neutrophils (1.2-6.7) k/cumm Absolute Lymphocytes (1.2-3.4) k/cumm Carbon Dioxide 33.0 H (21.0-32.0) mmol/L BUN 37 H (7-18) mg/dL Glucose 130 H (70-100) mg/dL Calcium 8.4 L (8.5-10.1) mg/dL Crossmatch See Detail 02/15/19 02/15/19 Range/Units 06:45 18:55 RBC 2.75 L (4.50-6.00) m/cumm Hgb 8.1 L 8.0 L (13.5-17.5) g/dL Hct 26.3 L 25.2 L (40.0-50.0) % MCV 95.6 H D (80-95) fL MCHC 30.8 L (32.0-36.0) g/dL RDW 18.9 H (11.8-14.1) % Absolute Neutrophils 7.65 H (1.2-6.7) k/cumm Absolute Lymphocytes 0.61 L (1.2-3.4) k/cumm Carbon Dioxide (21.0-32.0) mmol/L BUN (7-18) mg/dL Glucose (70-100) mg/dL Calcium (8.5-10.1) mg/dL Crossmatch Vital Signs Temperature 36.4 C L 02/15/19 16:14 Temperature Source Tympanic 02/15/19 16:14 Pulse 62 02/15/19 16:14 Pulse Rhythm Regular 02/15/19 15:30 Pulse 72 02/14/19 00:02 Respiratory Rate 18 02/15/19 16:14 Respiratory Effort 02/15/19 15:30 Respiratory Depth Deep 02/15/19 15:30 Respiratory Pattern Normal 02/15/19 15:30 Blood Pressure 135/69 02/15/19 16:14 Blood Pressure Mean 100 02/14/19 00:01 Blood Pressure Position Supine 02/13/19 12:08 Pulse Oximetry 98 02/15/19 16:14 Oxygen Delivery Method Nasal Cannula 02/15/19 16:14 Oxygen Flow Rate 3 02/15/19 16:14 Fraction of Inspired Oxygen (FIO2) 40 02/11/19 23:50 Pain Level 2 02/15/19 12:05 Comment 02/14/19 03:55 Intake & Output 02/14/19 02/15/19 02/15/19 23:59 11:59 23:59 Intake Total 1536 / 3226 1040 / 1876 836 / 1876 Output Total 2350 / 3750 850 / 3100 2250 / 3100 Balance -814 / -524 190 / -1224 -1414 / -1224 Weight 71.6 kg Intake: IV 430 / 830 340 / 696 356 / 696 Oral 480 / 1770 700 / 1180 480 / 1180 Blood Product 626 / 626 Rbc Leuko Reduced Unit 350 / 350 [id number] Rbc Leuko Reduced Unit 276 / 276 [id number] Output: Urine 2350 / 3750 850 / 3100 2250 / 3100 Other: Urine Color Yellow Yellow Yellow Urine Appearance Clear Clear Clear Urine Odor Normal Stool Occult Blood Positive Positive Stool Size Moderate Moderate Stool Characteristics Liquid Brown Black Bloody Voiding Methods Indwelling Catheter Laboratory Results WBC 8.69 k/cumm (4.4-10.8) D 02/15/19 06:45 RBC 2.75 m/cumm (4.50-6.00) L 02/15/19 06:45 Hgb 8.0 g/dL (13.5-17.5) L 02/15/19 18:55 Hct 25.2 % (40.0-50.0) L 02/15/19 18:55 MCV 95.6 fL (80-95) H D 02/15/19 06:45 MCH 29.5 pg (27.0-33.0) 02/15/19 06:45 MCHC 30.8 g/dL (32.0-36.0) L 02/15/19 06:45 RDW 18.9 % (11.8-14.1) H 02/15/19 06:45 Plt Count 216 x1000/uL (130-400) 02/15/19 06:45 MPV 10.0 fL (8.0-11.0) 02/15/19 06:45 Immature Gran % See Differential 02/15/19 06:45 Neutrophils % 88.0 02/15/19 06:45 Band Neutrophils % 2.0 % 02/09/19 14:00 Lymphocytes % 6.0 02/15/19 06:45 Atypical Lymphs % 1 02/15/19 06:45 Monocytes % 4.0 02/15/19 06:45 Eosinophils % 0.0 02/15/19 06:45 Basophils % 0.0 02/15/19 06:45 Myelocytes % 1.0 % 02/15/19 06:45 Absolute Neutrophils 7.65 k/cumm (1.2-6.7) H 02/15/19 06:45 Absolute Lymphocytes 0.61 k/cumm (1.2-3.4) L 02/15/19 06:45 Absolute Monocytes 0.35 k/cumm (0.11-0.7) 02/15/19 06:45 Absolute Eosinophils 0.00 k/cumm (0.0-0.7) 02/15/19 06:45 Absolute Basophils 0.09 k/cumm (0.0-0.2) 02/15/19 06:45 Nucleated RBCs 1 /100WBC 02/15/19 06:45 Differential Comment Manual differential 02/15/19 06:45 RBC Morphology See below 02/15/19 06:45 Polychromasia Present 02/15/19 06:45 Hypochromasia 2+ 02/15/19 06:45 Poikilocytosis 2+ 02/14/19 06:25 Basophilic Stippling Present 02/15/19 06:45 Anisocytosis 2+ 02/15/19 06:45 Microcytosis 1+ 02/14/19 06:25 Macrocytosis 2+ 02/14/19 06:25 Stomatocytes 2+ 02/09/19 14:00 PT 13.1 sec (9.3-11.0) H 02/09/19 14:00 INR 1.3 (0.9-1.1) H 02/09/19 14:00 APTT 29.2 sec (21.0-31.4) 02/09/19 14:00 Sample Site Right radial 02/09/19 15:35 pCO2 40 mmHg (34-47) 02/09/19 15:35 pO2 95 mmHg (83-108) 02/09/19 15:35 O2 Saturation 98 % (94-98) 02/09/19 15:35 ABG pH 7.48 (7.35-7.45) H 02/09/19 15:35 ABG HCO3 29 mmol/L (22-28) H 02/09/19 15:35 ABG Total CO2 27 mmol/L (22-29) 02/09/19 15:35 ABG Base Excess 5.8 mmol/L (-3-3) H 02/09/19 15:35 Oxygen Liter Flow Bipap L 02/09/19 15:35 FiO2 50 % 02/09/19 15:35 Sodium 137 mmol/L (136-145) 02/15/19 06:45 Potassium 3.7 mmol/L (3.5-5.1) 02/15/19 06:45 Chloride 99 mmol/L (98-107) 02/15/19 06:45 Carbon Dioxide 33.0 mmol/L (21.0-32.0) H 02/15/19 06:45 Anion Gap 5.0 mmol/L (3-11) 02/15/19 06:45 BUN 37 mg/dL (7-18) H 02/15/19 06:45 Creatinine 0.97 mg/dL (0.70-1.30) 02/15/19 06:45 Estimated GFR/1.73 m2 >= 60.00 (mL/min/1.73m2) 02/15/19 06:45 Glucose 130 mg/dL (70-100) H 02/15/19 06:45 Lactate 1.2 mmol/l (0.6-1.4) 02/09/19 17:55 Calcium 8.4 mg/dL (8.5-10.1) L 02/15/19 06:45 Magnesium 1.8 mg/dL (1.8-2.4) 02/15/19 06:45 Total Bilirubin 0.7 mg/dL (0.2-1.0) 02/09/19 14:00 AST 16 U/L (15-37) 02/09/19 14:00 ALT 9 U/L (12-78) L 02/09/19 14:00 Alkaline Phosphatase 112 U/L (46-116) 02/09/19 14:00 Troponin I 0.69 ng/mL (0.00-0.06) H* 02/11/19 06:30 NT-Pro-B Natriuret Pep 8651 pg/mL (-299) H 02/09/19 14:00 Total Protein 7.4 g/dL (6.4-8.2) 02/09/19 14:00 Albumin 3.3 g/dL (3.4-5.0) L 02/09/19 14:00 Triglycerides 50 mg/dL (30-150) 02/10/19 06:32 Total Cholesterol 106 mg/dL (50-200) 02/10/19 06:32 LDL Cholesterol Direct 59 mg/dL (<100) 02/10/19 06:32 HDL Cholesterol 43 mg/dL (40-60) 02/10/19 06:32 TSH 0.57 uIU/mL (0.358-3.74) 02/10/19 06:32 Urine Color Yellow (Yellow) 02/09/19 15:00 Urine Clarity Clear 02/09/19 15:00 Urine pH 6.0 (5-8) 02/09/19 15:00 Ur Specific Aspen 1.015 (1.005-1.025) 02/09/19 15:00 Urine Protein 100 mg/dL (Negative) H 02/09/19 15:00 Urine Ketones Negative mg/dL (Negative) 02/09/19 15:00 Urine Blood Trace-intact (Negative) H 02/09/19 15:00 Urine Nitrite Negative (Negative) 02/09/19 15:00 Urine Bilirubin Negative (Negative) 02/09/19 15:00 Urine Urobilinogen 0.2 EU/dL (Up TO 0.2) 02/09/19 15:00 Ur Leukocyte Esterase Negative (Negative) 02/09/19 15:00 Urine RBC 0-2 (0-2) 02/09/19 15:00 Urine WBC 0-2 HPF (0-5) 02/09/19 15:00 Ur Epithelial Cells Rare HPF (Negative) 02/09/19 15:00 Urine Crystals Negative HPF (Negative) 02/09/19 15:00 Urine Bacteria Rare HPF (Negative) 02/09/19 15:00 Urine Casts 0-2 hyaline LPF (Negative) 02/09/19 15:00 Urine Mucus Trace (Negative) 02/09/19 15:00 Urine Other Rare renal (Negative) 02/09/19 15:00 Ur Culture Indicated? No 02/09/19 15:00 Urine Glucose Negative mg/dL (Negative) 02/09/19 15:00 Vancomycin Trough 17.7 ug/mL (10.0-20.0) 02/15/19 14:10 Path Cons Comment See comment 02/09/19 14:00 Patient ABO/Rh A Positive 02/14/19 14:38 Antibody Screen Negative 02/14/19 14:38 Crossmatch See Detail 02/14/19 14:38
[2019-02-16] VITALS (9 sets, daily range): BP systolic 122–146; BP diastolic 55–77; PULSE 64–74; RESP 18–22; TEMP 36–37.1; O2SAT 92–97
[2019-02-16] MEDS: oxyCODONE 5 MG TAB PO ×3 (00:10→11:31)
[2019-02-16] MEDS: PIPERACILLIN/TAZO 4.5 GM in Normal Saline 100 ML IVPB (05:31)
[2019-02-16] MEDS: Normal Saline Flush 10 ML SYR IVP ×4 (05:32→19:39)
[2019-02-16 07:10] LABS: Absolute Basophil Count 0.01 k/cumm (0.0-0.2); Absolute Eosinophil Count 0.03 k/cumm (0.0-0.7); Absolute Lymphocyte Count 0.97 k/cumm (1.2-3.4); Absolute Neutrophil Count 9.14 k/cumm (1.2-6.7); Basophils % 0.1; Eosinophils % 0.3; HCT 24.5 % (40.0-50.0); HGB 7.5 g/dL (13.5-17.5); Immature Grans % 0.9; Lymphocytes % 8.9; Mean Corp. HGB Concentration 30.6 g/dL (32.0-36.0); Mean Corpuscular Hemoglobin 29.5 pg (27.0-33.0); Mean Corpuscular Volume 96.5 fL (80-95); Mean Platelet Volume 9.9 fL (8.0-11.0); Neutrophils % 83.8; Platelet Count 227 x1000/uL (130-400); RBC 2.54 m/cumm (4.50-6.00); RBC Distribution Width 18.5 % (11.8-14.1); White Blood Cell Count 10.91 k/cumm (4.4-10.8)
[2019-02-16 07:15] LABS: Absolute Monocyte Count 0.65 k/cumm (0.11-0.7)
[2019-02-16 07:19] LABS: Anion Gap 4.7 mmol/L (3-11); BUN 25 mg/dL (7-18); CO2 32.3 mmol/L (21.0-32.0); CREATININE 0.96 mg/dL (0.70-1.30); Chloride 98 mmol/L (98-107); Glucose 127 mg/dL (70-100); Magnesium 1.7 mg/dL (1.8-2.4); Potassium 3.7 mmol/L (3.5-5.1); Sodium 135 mmol/L (136-145)
[2019-02-16] MEDS: Pantoprazole 40 MG VIAL IVP ×2 (09:28→19:39)
[2019-02-16] MEDS: Allopurinol 300 MG TAB PO (09:29)
[2019-02-16] MEDS: Nicotine 14 MG/24 HR PATCH TD (09:29)
[2019-02-16] MEDS: Finasteride 5 MG TAB PO (09:29)
[2019-02-16] MEDS: Tamsulosin 0.4 MG CAPCR 0.8 MG PO (09:29)
[2019-02-16] MEDS: dilTIAZem 30 MG TAB PO ×3 (09:30→19:40)
[2019-02-16] MEDS: Gabapentin 300 MG CAP PO ×3 (09:30→19:40)
[2019-02-16] MEDS: Ferrous Sulfate 325 MG TAB PO ×2 (09:30→19:40)
[2019-02-16] MEDS: Primidone 50 MG TAB PO ×3 (09:30→19:39)
[2019-02-16] MEDS: Sucralfate 1 GM TAB PO ×3 (09:30→15:14)
[2019-02-16] MEDS: Calcium 600mg/Vit D 200U TAB 1 TAB PO ×3 (09:30→19:40)
[2019-02-16] MEDS: Multivitamin TAB 1 TAB PO (09:30)
[2019-02-16] MEDS: Thiamine 100 MG TAB PO (09:30)
[2019-02-16] MEDS: Folic Acid 1 MG TAB PO (09:31)
[2019-02-16] MEDS: Magnesium Oxide 400 MG TAB PO (09:31)
[2019-02-16] MEDS: Lidocaine 5% Patch 1 PATCH TD (09:31)
[2019-02-16] MEDS: Furosemide 40 MG TAB PO (09:31)
[2019-02-16] MEDS: predniSONE 20 MG TAB 40 MG PO (09:31)
[2019-02-16] MEDS: Metoprolol CR 50 MG TABCR PO (09:31)
--- NOTE | 2019-02-16 11:30 | OT.INTREAT ---
Date of service: 02/16/19 Time of Service: 10:45 Occupational Therapy Notes Occupational Therapy Inpatient Treatment Note Date: 02/16/19 PRECAUTIONS: Fall, Standard SUBJECTIVE: Pt was sitting in bed when OT arrived. He reports that he is very tired today and that he isn't sure if he will be able to perform ADLs but is willing to try. Pt is connected to O2 nasal cannula with increased breathing. OBJECTIVE: PAIN:no c/o pain FUNCTIONAL MOBILITY Rolling L/R: (I) Supine-sit: S Sit-stand: CGA, FWW Stand-sit: CGA, FWW Bed-Chair: CGA, FWW with min vc BATHING: Sitting in bed with max (A) set up. Upper Body: Max (A) UE except for elbow to hand on (B) UE. Lower Body: Max (A) DRESSING: Sitting in bed Upper Extremity: Min (A) donning and doffing hospital gown Lower Extremity: Max (A) donning and doffing (B) socks GROOMING: Pt required max (A) brushing hair. He denied washing his hair at todays session. ASSESSMENT/PLAN: Pt reports that he is very weak this morning. He is unable to lift his arms into full ROM. He presents today with decreased functional activity tolerance. He required max (A) for most of his bathing routine which OT does feel is due to weakness that he feels today. Pt would benefit from continued skilled OT intervention for increased (I) in adl routines and increased functional activity tolerance during functional mobility. TREATMENT CODES/TIME: [id number], 45 minutes (10:45) [facility]
[2019-02-16] MEDS: Acetaminophen 325 MG TAB PO (11:31)
--- NOTE | 2019-02-16 12:59 | PTTR_ITS ---
Date of service: 02/14/19 Time of Service: 10:01 PT Notes Inpatient Physical Therapy Treatment Note [facility] Date: 02/14/2019 PRECAUTIONS:Fall. Standard. Contact precautions. SUBJECTIVE: Patient reports that he has been sore, sore, sore in the bottom. States that he has not slept much last night and feels tired this morning. He has been complaining of very loose stools since early this morning he states that he stayed for about 3 hours earlier this morning on the commode. OBJECTIVE: Patient found seated on chair with IV attachment and edwards catheter still on. Patient appeared to be in mildly labored breathing even at rest but oxygen saturation stayed above 90% at 3 L/min. TEDS still on bilateral legs. PAIN: Reports discomfort and soreness in anal area due to continuous episodes of diarrhea. BED MOBILITY/TRANSFERS Rolling L/R: Independent in a.m.but minimal assist in p.m. due to increased fatigue and fluid loss from diarrhea bout Supine-sit: Independent in a.m.but minimal assist in p.m. due to increased fatigue and fluid loss from diarrhea bout Sit-supine: Independent in a.m.but minimal assist in p.m. due to increased fatigue and fluid loss from diarrhea bout Sit-stand: S in a.m.but minimal assist in p.m. due to increased fatigue and fluid loss from diarrhea bout Stand-sit: S in a.m.but minimal assist in p.m. due to increased fatigue and fluid loss from diarrhea bout Bed-Chair: S in a.m.but minimal assist in p.m. due to increased fatigue and fluid loss from diarrhea bout Chair-bed: S in a.m.but minimal assist in p.m. due to increased fatigue and fluid loss from diarrhea bout GAIT patient tolerated in room ambulation 15 feet x2 using FWW in a.m. and 8 feet only in p.m. still with slowed josué and increased labored breathing with oxygen saturation staying at 96% at 3 L/min. BP was 146/72 and heart rate 69 bpm after PT session in the afternoon. ASSESSMENT: Patient was assisted twice for toileting in the morning and once in the afternoon. Patient did have very loose dark brownish stool in the morning and in the afternoon black tarry stools. Patient was found to be in active GI bleed and and all exercises have been deferred until further notice. PLAN: Continue with PT POC as previously established in order to maximize mobility level and dissipation of discharge to residential facility. TREATMENT CODE/TIME: [id number] 44 minutes in the a.m. beginning at 10:01 AM and 20 minutes in the p.m. beginning at 13:52 pm.. Funmilayo Woodard, PT, DPT, CLT [facility]
[2019-02-16] MEDS: POTASSIUM CHLORIDE 20 MEQ, POTASSIUM CHLORIDE 10 MEQ 30 MEQ PO (13:59)
--- NOTE | 2019-02-16 15:32 | PT.INNT ---
Date of service: 02/16/19 Time of Service: 15:32 PT Notes 02/16/19 Patient was not seen for PT today, as per nursing request PT was held in a.m. while patient was receiving blood. Patient refused afternoon PT session stating he was too tired, nursing aware. Will attempt to resume PT services tomorrow morning.
[2019-02-16 16:32] LABS: HCT 29.6 % (40.0-50.0); HGB 9.4 g/dL (13.5-17.5)
--- NOTE | 2019-02-16 17:25 | PGE_ITS ---
Date of Service Date of service: 02/16/19 Time of Service: 17:23 Assessment and Plan (1) Anemia: Current visit: Yes Status: Chronic Last EGD 01/14 with evidence of gastritis per report. Review of prior records with normal EGD/Colonoscopy in 2016. Current Hgb with slight drop following transfusion - will transfuse one additional unit, and repeat H/H. Chemical DVT prophylaxis and aspirin remain on hold. Continue BID PPI and QID Sucralfate. Monitor H/H closely, with repeat also stable. (2) Sepsis: Current visit: Yes Status: Acute Resolved with treatment of pneumonia. (3) HCAP (healthcare-associated pneumonia): Current visit: Yes Status: Acute Received a 7 day course of Vancomycin and Pip-Tazo. MRSA screen positive, and rapid flu negative. Blood Cultures with NG X 120 Hours. Breathing reportedly at baseline in patient with underlying COPD and on home O2 with continued ongoing tobacco use. (4) COPD (chronic obstructive pulmonary disease): Current visit: Yes Status: Chronic Continue antibiotics, duonebs as needed, and wean steroids as able - decreased prednisone today. (5) Atrial fibrillation: Current visit: Yes Status: Chronic Converted to NSR. Continue oral Cardizem and BB therapy. Merits anticoagulation with a ChadsVasc2 score of 5, but given recent and now current GI Bleed is not a candidate currently. Continue to monitor on telemetry. ECHO results as above. (6) NSTEMI (non-ST elevated myocardial infarction): Current visit: Yes Status: Acute Demand Ischemia in setting of infection, hypoxia, and Afib with RVR. Troponin downtrended. Continue daily high potency statin, and BB therapy. ASA on hold. (7) Acute CHF: Current visit: Yes Status: Acute Right sided systolic CHF, with noted Diastolic heart failure and fairly significant valvulopathy with moderate , and moderate to severe MR. CHF in the setting of AFib with RVR. Appears closer to euvolemic. Furosemide gtt discontinued, and patient back on once daily diuretic therapy. Monitor daily weights carefully. (8) CAD (coronary artery disease): Current visit: Yes Status: Chronic Noted, with Type 2 NSTEMI as above. Continue ASA, statin, BB. (9) Lung mass: Current visit: Yes Status: Acute Noted lung mass with mediastinal LAD. Per lengthy discussion with patient and his family, it appears that he may have had this mass for a number of years. His relatives relayed that per discussion with his PCP Dr. Godoy at [facility], this has been evaluated in the past. They also remember being told by [facility] a number of years ago of a 'spot on his lungs'. Records from [facility] indicate a long history of lung ca. (10) DVT prophylaxis: Current visit: Yes Status: Acute Avoid chemical prophylaxis given GI bleed. Ensure SCDs and TEDs. (11) Advance directive on file: Current visit: Yes Status: Acute DNR/DNI Subjective Interval history since last seen: 78 year old man with a prior medical history significant for a recent hospitalization and treatment for pneumonia, admitted from [facility] Emergency Department on 02/09 with a diagnosis of sepsis and RLL Pneumonia. Mr. 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 He was recented treated for pneumonia at [facility] between 01/02 and 01/26/19. He also had apparent GI bleed on that admission due to gastritis, and BPH with urinary retention. He was sent to [facility] and rehab for Custodial and PT. He presented to the ED with complaints of SOB, and was found to be hypoxic to the 80's on 3L (described as his baseline), in acute CHF, with an altered mental status. He was placed on BIPAP and diuresed. He was also found to have a RLL pneumonia, suspicious for aspiration. He went into rapid Afib with HR up to 170's. He was placed on cardizem gtt and admitted for further evaluation and treatment. Of note, he also has a lung mass by imaging. The patient was empirically treated for HCAP with combination of Vancomycin and Pip-Tazo. Speech Therapy has evaluated the patient and without any evidence of aspiration risk. He has since converted back to NSR, but also showed a minimal elevation in troponin deemed very likely demand in nature. The patient was maintained on a lasix drip with excellent output, treated for CHF - his ECHO showed a normal LVEF, DD, Moderate with moderate to severe MR, moderately reduced RV Function, and Significant PHTN. Mr. Hyman's Hemoglobin had been stable in the 8's range and unchanged through his hospital course. He has a history of GIB during his recent hospitalization, requiring transfusion with 4 units of PRBCs. EGD performed on 01/14 showed e vidence of Gastritis, with coffee ground material seen in the stomach. On 02/14 the patient's Hemoglobin dropped slightly to 7.7, and he was reported to start having dark stools with scant blood. He was ordered 2 Units of PRBCs, but prior to receiving them suffered an unresponsive episode while on the commode. He regained consciousness with essentially stable vitals without intervention, but a repeat CBC showed his Hgb to have dropped to 6.6. He responded to transfusion, but his Hgb is down in the 7's again today. He reports his breathing is at baseline. No other events were reported overnight. He remains afebrile. Exam Narrative Exam Narrative: General: Patient appears pale, sitting in bed, AAOX3, NAD. Neck: Supple CV: Regular, nontachycardic, S1S2. 3/6 LLSB and RUSB murmurs appreciated. Pulmonary: Continued decreased right base breath sounds but vastly improved, no further crackles or wheezing. Abdomen: + Bowel Sounds, soft, nontender, nondistended Vascular: Mild bilateral lower extremity edema Psych: Normal mood and affect. Objective Objective Clinical Data: Abnormal lab results 02/14/19 02/15/19 02/16/19 Range/Units 14:38 18:55 06:30 WBC (4.4-10.8) k/cumm RBC (4.50-6.00) m/cumm Hgb 8.0 L (13.5-17.5) g/dL Hct 25.2 L (40.0-50.0) % MCV (80-95) fL MCHC (32.0-36.0) g/dL RDW (11.8-14.1) % Absolute Neutrophils (1.2-6.7) k/cumm Absolute Lymphocytes (1.2-3.4) k/cumm Sodium 135 L (136-145) mmol/L Carbon Dioxide 32.3 H (21.0-32.0) mmol/L BUN 25 H D (7-18) mg/dL Glucose 127 H (70-100) mg/dL Calcium 8.0 L (8.5-10.1) mg/dL Magnesium 1.7 L (1.8-2.4) mg/dL Crossmatch See Detail 02/16/19 02/16/19 Range/Units 06:30 16:15 WBC 10.91 H (4.4-10.8) k/cumm RBC 2.54 L (4.50-6.00) m/cumm Hgb 7.5 L 9.4 L (13.5-17.5) g/dL Hct 24.5 L 29.6 L D (40.0-50.0) % MCV 96.5 H (80-95) fL MCHC 30.6 L (32.0-36.0) g/dL RDW 18.5 H (11.8-14.1) % Absolute Neutrophils 9.14 H (1.2-6.7) k/cumm Absolute Lymphocytes 0.97 L (1.2-3.4) k/cumm Sodium (136-145) mmol/L Carbon Dioxide (21.0-32.0) mmol/L BUN (7-18) mg/dL Glucose (70-100) mg/dL Calcium (8.5-10.1) mg/dL Magnesium (1.8-2.4) mg/dL Crossmatch Vital Signs Temperature 36 C L 02/16/19 15:19 Temperature Source Tympanic 02/16/19 15:19 Pulse 70 02/16/19 15:19 Pulse Rhythm Regular 02/16/19 15:20 Pulse 72 02/14/19 00:02 Respiratory Rate 26 H 02/16/19 15:19 Respiratory Effort 02/16/19 15:20 Respiratory Depth Deep 02/16/19 15:20 Respiratory Pattern Normal 02/16/19 15:20 Blood Pressure 135/69 02/16/19 15:19 Blood Pressure Mean 100 02/14/19 00:01 Blood Pressure Position Supine 02/13/19 12:08 Pulse Oximetry 95 02/16/19 15:20 Oxygen Delivery Method Nasal Cannula 02/16/19 15:20 Oxygen Flow Rate 3 02/16/19 15:20 Fraction of Inspired Oxygen (FIO2) 40 02/11/19 23:50 Pain Level 1 02/16/19 11:31 Comment 02/14/19 03:55 Intake & Output 02/15/19 02/16/19 02/16/19 23:59 11:59 23:59 Intake Total 1176 / 2216 300 / 860 560 / 860 Output Total 2900 / 3750 1000 / 1550 550 / 1550 Balance -1724 / -1534 -700 / -690 10 / -690 Weight 71 kg Intake: IV 456 / 796 300 / 320 20 / 320 Oral 720 / 1420 240 / 240 Blood Product 300 / 300 Rbc Leuko Reduced Unit 300 / 300 [id number] Output: Urine 2900 / 3750 1000 / 1550 550 / 1550 Other: Urine Color Yellow Pale Yellow Yellow Urine Appearance Clear Clear Clear Urine Odor Normal Voiding Methods Indwelling Catheter Laboratory Results WBC 10.91 k/cumm (4.4-10.8) H 02/16/19 06:30 RBC 2.54 m/cumm (4.50-6.00) L 02/16/19 06:30 Hgb 9.4 g/dL (13.5-17.5) L 02/16/19 16:15 Hct 29.6 % (40.0-50.0) L D 02/16/19 16:15 MCV 96.5 fL (80-95) H 02/16/19 06:30 MCH 29.5 pg (27.0-33.0) 02/16/19 06:30 MCHC 30.6 g/dL (32.0-36.0) L 02/16/19 06:30 RDW 18.5 % (11.8-14.1) H 02/16/19 06:30 Plt Count 227 x1000/uL (130-400) 02/16/19 06:30 MPV 9.9 fL (8.0-11.0) 02/16/19 06:30 Immature Gran % 0.9 02/16/19 06:30 Neutrophils % 83.8 02/16/19 06:30 Band Neutrophils % 2.0 % 02/09/19 14:00 Lymphocytes % 8.9 02/16/19 06:30 Atypical Lymphs % 1 02/15/19 06:45 Monocytes % 6.0 02/16/19 06:30 Eosinophils % 0.3 02/16/19 06:30 Basophils % 0.1 02/16/19 06:30 Myelocytes % 1.0 % 02/15/19 06:45 Absolute Neutrophils 9.14 k/cumm (1.2-6.7) H 02/16/19 06:30 Absolute Lymphocytes 0.97 k/cumm (1.2-3.4) L 02/16/19 06:30 Absolute Monocytes 0.65 k/cumm (0.11-0.7) 02/16/19 06:30 Absolute Eosinophils 0.03 k/cumm (0.0-0.7) 02/16/19 06:30 Absolute Basophils 0.01 k/cumm (0.0-0.2) 02/16/19 06:30 Nucleated RBCs 1 /100WBC 02/15/19 06:45 Differential Comment Manual differential 02/15/19 06:45 RBC Morphology See below 02/15/19 06:45 Polychromasia Present 02/15/19 06:45 Hypochromasia 2+ 02/15/19 06:45 Poikilocytosis 2+ 02/14/19 06:25 Basophilic Stippling Present 02/15/19 06:45 Anisocytosis 2+ 02/15/19 06:45 Microcytosis 1+ 02/14/19 06:25 Macrocytosis 2+ 02/14/19 06:25 Stomatocytes 2+ 02/09/19 14:00 PT 13.1 sec (9.3-11.0) H 02/09/19 14:00 INR 1.3 (0.9-1.1) H 02/09/19 14:00 APTT 29.2 sec (21.0-31.4) 02/09/19 14:00 Sample Site Right radial 02/09/19 15:35 pCO2 40 mmHg (34-47) 02/09/19 15:35 pO2 95 mmHg (83-108) 02/09/19 15:35 O2 Saturation 98 % (94-98) 02/09/19 15:35 ABG pH 7.48 (7.35-7.45) H 02/09/19 15:35 ABG HCO3 29 mmol/L (22-28) H 02/09/19 15:35 ABG Total CO2 27 mmol/L (22-29) 02/09/19 15:35 ABG Base Excess 5.8 mmol/L (-3-3) H 02/09/19 15:35 Oxygen Liter Flow Bipap L 02/09/19 15:35 FiO2 50 % 02/09/19 15:35 Sodium 135 mmol/L (136-145) L 02/16/19 06:30 Potassium 3.7 mmol/L (3.5-5.1) 02/16/19 06:30 Chloride 98 mmol/L (98-107) 02/16/19 06:30 Carbon Dioxide 32.3 mmol/L (21.0-32.0) H 02/16/19 06:30 Anion Gap 4.7 mmol/L (3-11) 02/16/19 06:30 BUN 25 mg/dL (7-18) H D 02/16/19 06:30 Creatinine 0.96 mg/dL (0.70-1.30) 02/16/19 06:30 Estimated GFR/1.73 m2 >= 60.00 (mL/min/1.73m2) 02/16/19 06:30 Glucose 127 mg/dL (70-100) H 02/16/19 06:30 Lactate 1.2 mmol/l (0.6-1.4) 02/09/19 17:55 Calcium 8.0 mg/dL (8.5-10.1) L 02/16/19 06:30 Magnesium 1.7 mg/dL (1.8-2.4) L 02/16/19 06:30 Total Bilirubin 0.7 mg/dL (0.2-1.0) 02/09/19 14:00 AST 16 U/L (15-37) 02/09/19 14:00 ALT 9 U/L (12-78) L 02/09/19 14:00 Alkaline Phosphatase 112 U/L (46-116) 02/09/19 14:00 Troponin I 0.69 ng/mL (0.00-0.06) H* 02/11/19 06:30 NT-Pro-B Natriuret Pep 8651 pg/mL (-299) H 02/09/19 14:00 Total Protein 7.4 g/dL (6.4-8.2) 02/09/19 14:00 Albumin 3.3 g/dL (3.4-5.0) L 02/09/19 14:00 Triglycerides 50 mg/dL (30-150) 02/10/19 06:32 Total Cholesterol 106 mg/dL (50-200) 02/10/19 06:32 LDL Cholesterol Direct 59 mg/dL (<100) 02/10/19 06:32 HDL Cholesterol 43 mg/dL (40-60) 02/10/19 06:32 TSH 0.57 uIU/mL (0.358-3.74) 02/10/19 06:32 Urine Color Yellow (Yellow) 02/09/19 15:00 Urine Clarity Clear 02/09/19 15:00 Urine pH 6.0 (5-8) 02/09/19 15:00 Ur Specific [place] 1.015 (1.005-1.025) 02/09/19 15:00 Urine Protein 100 mg/dL (Negative) H 02/09/19 15:00 Urine Ketones Negative mg/dL (Negative) 02/09/19 15:00 Urine Blood Trace-intact (Negative) H 02/09/19 15:00 Urine Nitrite Negative (Negative) 02/09/19 15:00 Urine Bilirubin Negative (Negative) 02/09/19 15:00 Urine Urobilinogen 0.2 EU/dL (Up TO 0.2) 02/09/19 15:00 Ur Leukocyte Esterase Negative (Negative) 02/09/19 15:00 Urine RBC 0-2 (0-2) 02/09/19 15:00 Urine WBC 0-2 HPF (0-5) 02/09/19 15:00 Ur Epithelial Cells Rare HPF (Negative) 02/09/19 15:00 Urine Crystals Negative HPF (Negative) 02/09/19 15:00 Urine Bacteria Rare HPF (Negative) 02/09/19 15:00 Urine Casts 0-2 hyaline LPF (Negative) 02/09/19 15:00 Urine Mucus Trace (Negative) 02/09/19 15:00 Urine Other Rare renal (Negative) 02/09/19 15:00 Ur Culture Indicated? No 02/09/19 15:00 Urine Glucose Negative mg/dL (Negative) 02/09/19 15:00 Vancomycin Trough 17.7 ug/mL (10.0-20.0) 02/15/19 14:10 Path Cons Comment See comment 02/09/19 14:00 Patient ABO/Rh A Positive 02/14/19 14:38 Antibody Screen Negative 02/14/19 14:38 Crossmatch See Detail 02/14/19 14:38
--- NOTE | 2019-02-16 17:44 | PDOC.CMPRO ---
- If Service Date Differs Date of service: 02/16/19 Time of Service: 17:44 Care Management Progress Note S/O:Dave remains acute today his hgb continues to trend down he is going to receive unit of [facility]'s today. He and his family where able to meet with palliative care today. He was started on oral morphine to help with his dyspnea. He is not ready to return to [facility] today. He does state his goals of care are to return to rehab and transition home with a caregiver. His prison medicaid application is pending. CM reviewed with Rachel Dumont today [facility] she is identifying at time she can assess the patient. CM reviewed clinical needs with her over the phone. Dave has a large amount of family that is supportive while he remains an inpatient. Labs are pending for tomorrow and will determine if he is able and ready to return to the rehab. A:Dave is a 78 year old male admitted with sepsis, r/t pneumonia P:Dave remains acute no change in status today. Dave will return to health and rehab when medically ready. CM has updated family and facility discharge planning and disposition.
--- NOTE | 2019-02-16 17:50 | CMPROGNOTE_ITS ---
- If Service Date Differs Date of service: 02/16/19 Time of Service: 17:44 Care Management Progress Note S/O:Dave remains acute today his hgb continues to trend down he is going to receive unit of [facility]'s today. He and his family where able to meet with palliative care today. He was started on oral morphine to help with his dyspnea. He is not ready to return to [facility] today. He does state his goals of care are to return to rehab and transition home with a caregiver. His half-way medicaid application is pending. CM reviewed with Rachel Dumont today [facility] she is identifying at time she can assess the patient. CM reviewed clinical needs with her over the phone. Dave has a large amount of family that is supportive while he remains an inpatient. Labs are pending for tomorrow and will determine if he is able and ready to return to the rehab. A:Dave is a 78 year old male admitted with sepsis, r/t pneumonia P:Dave remains acute no change in status today. Dave will return to health and rehab when medically ready. CM has updated family and facility discharge planning and disposition.
[2019-02-16] MEDS: Budesonide/Formoterol 160/4.5 6 GM 60 PUFF INH IH (19:37)
[2019-02-16] MEDS: Docusate Sodium 100 MG CAP PO (19:40)
[2019-02-16] MEDS: Rosuvastatin 10 MG TAB PO (19:40)
[2019-02-16] MEDS: Patch Removal 1 EACH TP (19:41)
--- NOTE | 2019-02-16 20:48 | PCPN_ITS ---
Date of service: 02/16/19 Time of Service: 15:36 Assessment and Plan (1) COPD (chronic obstructive pulmonary disease): Current visit: Yes Status: Chronic Continues to struggle to breath. Agrees to try a low dose morphine to see if it improves his work of breathing. Considering he is not opiate naive, a good tarting dose would be morphine IR 15mg 0.5 tab PO Q 2 hours PRN. Doubtful he would need it more than 4 times daily. His sister also urged him to take it as she thought he would function better with it. Discussed Hospice: what he would gain, what he would give up. He states that he has a friend, Estefania, who would live with him. He would be happiest at home so he could smoke. He loves to smoke. He states he wants to , but is also ok with continuing aggressive care. His sister is having good conversations with him about next steps. 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 This conversation needs to continue as his multiple co morbidities seem to catapulting him into actively dying. I did discuss in detail his multiple comorbidities and how these play into each other. He mostly looks out the window when I am talking about them and how it impacts his life. I have spent more than 50% of time in counseling with this patient. This document was created by [employer] and may contain grammatical and translation errors. (2) Pulmonary hypertension: Current visit: Yes Status: Acute (3) H/O: GI bleed: Current visit: Yes Status: Resolved He is receiving blood as we speak. He flip flops between agreeing to more testing and transfusions and getting out of here as quick as possible. He has gastritis, but likely has a more involved diagnosis given his stools and need for transfusions. Subjective Patient reports: shortness of breath Interval history since last seen: Since I last saw Dave he has been moved from ICU to the floor. There was a family meeting. It was decided he would go to [facility] and rehab. Today he was considerably more short of breath. I was asked to see him again to better review his options for the future. Specifically to discuss morphine for shortness of breath and possible change to hospice. He continues to have a GI bleed and is receiving a blood transfusion as we speak. His sister and [id number] are in the room with us. Initially the conversation is difficult because Dave engaged overall his [id number] sprinkled with jokes. I did discuss the use of morphine. Initially he felt that that would kill him. His sister had some experience with this with shortness of breath and explained to him that it would in fact improve his functional capacity and decrease his shortness of breath. All he wants to do is smoke and be left alone. He states he wants to . He also states he does not care how much money to get spent to have blood tests and procedures done. [place] [facility] rehab. Exam Resp Effort & Inspection: labored, nasal flaring and pursed lip breathing Objective Objective Clinical Data: Abnormal lab results 02/14/19 02/16/19 02/16/19 Range/Units 14:38 06:30 06:30 WBC 10.91 H (4.4-10.8) k/cumm RBC 2.54 L (4.50-6.00) m/cumm Hgb 7.5 L (13.5-17.5) g/dL Hct 24.5 L (40.0-50.0) % MCV 96.5 H (80-95) fL MCHC 30.6 L (32.0-36.0) g/dL RDW 18.5 H (11.8-14.1) % Absolute Neutrophils 9.14 H (1.2-6.7) k/cumm Absolute Lymphocytes 0.97 L (1.2-3.4) k/cumm Sodium 135 L (136-145) mmol/L Carbon Dioxide 32.3 H (21.0-32.0) mmol/L BUN 25 H D (7-18) mg/dL Glucose 127 H (70-100) mg/dL Calcium 8.0 L (8.5-10.1) mg/dL Magnesium 1.7 L (1.8-2.4) mg/dL Crossmatch See Detail 02/16/19 Range/Units 16:15 WBC (4.4-10.8) k/cumm RBC (4.50-6.00) m/cumm Hgb 9.4 L (13.5-17.5) g/dL Hct 29.6 L D (40.0-50.0) % MCV (80-95) fL MCHC (32.0-36.0) g/dL RDW (11.8-14.1) % Absolute Neutrophils (1.2-6.7) k/cumm Absolute Lymphocytes (1.2-3.4) k/cumm Sodium (136-145) mmol/L Carbon Dioxide (21.0-32.0) mmol/L BUN (7-18) mg/dL Glucose (70-100) mg/dL Calcium (8.5-10.1) mg/dL Magnesium (1.8-2.4) mg/dL Crossmatch Vital Signs Temperature 96.8 F L 02/16/19 15:19 Temperature Source Tympanic 02/16/19 15:19 Pulse 70 02/16/19 15:19 Pulse Rhythm Regular 02/16/19 15:20 Pulse 72 02/14/19 00:02 Respiratory Rate 20 02/16/19 15:19 Respiratory Effort 02/16/19 15:20 Respiratory Depth Deep 02/16/19 15:20 Respiratory Pattern Normal 02/16/19 15:20 Blood Pressure 135/69 02/16/19 15:19 Blood Pressure Mean 100 02/14/19 00:01 Blood Pressure Position Supine 02/13/19 12:08 Pulse Oximetry 95 02/16/19 15:20 Oxygen Delivery Method Nasal Cannula 02/16/19 15:20 Oxygen Flow Rate 3 02/16/19 15:20 Fraction of Inspired Oxygen (FIO2) 40 02/11/19 23:50 Pain Level 1 02/16/19 11:31 Comment 02/14/19 03:55 Intake & Output 02/15/19 02/16/19 02/16/19 23:59 11:59 23:59 Intake Total 1176 / 2216 300 / 860 560 / 860 Output Total 2900 / 3750 1000 / 1550 550 / 1550 Balance -1724 / -1534 -700 / -690 10 690 Weight 156 lb 8.451 oz Intake: IV 456 / 796 300 / 320 20 / 320 Oral 720 / 1420 240 / 240 Blood Product 300 / 300 Rbc Leuko Reduced Unit 300 / 300 [id number] Output: Urine 2900 / 3750 1000 / 1550 550 / 1550 Other: Urine Color Yellow Pale Yellow Yellow Urine Appearance Clear Clear Clear Urine Odor Normal Voiding Methods Indwelling Catheter Laboratory Results WBC 10.91 k/cumm (4.4-10.8) H 02/16/19 06:30 RBC 2.54 m/cumm (4.50-6.00) L 02/16/19 06:30 Hgb 9.4 g/dL (13.5-17.5) L 02/16/19 16:15 Hct 29.6 % (40.0-50.0) L D 02/16/19 16:15 MCV 96.5 fL (80-95) H 02/16/19 06:30 MCH 29.5 pg (27.0-33.0) 02/16/19 06:30 MCHC 30.6 g/dL (32.0-36.0) L 02/16/19 06:30 RDW 18.5 % (11.8-14.1) H 02/16/19 06:30 Plt Count 227 x1000/uL (130-400) 02/16/19 06:30 MPV 9.9 fL (8.0-11.0) 02/16/19 06:30 Immature Gran % 0.9 02/16/19 06:30 Neutrophils % 83.8 02/16/19 06:30 Band Neutrophils % 2.0 % 02/09/19 14:00 Lymphocytes % 8.9 02/16/19 06:30 Atypical Lymphs % 1 02/15/19 06:45 Monocytes % 6.0 02/16/19 06:30 Eosinophils % 0.3 02/16/19 06:30 Basophils % 0.1 02/16/19 06:30 Myelocytes % 1.0 % 02/15/19 06:45 Absolute Neutrophils 9.14 k/cumm (1.2-6.7) H 02/16/19 06:30 Absolute Lymphocytes 0.97 k/cumm (1.2-3.4) L 02/16/19 06:30 Absolute Monocytes 0.65 k/cumm (0.11-0.7) 02/16/19 06:30 Absolute Eosinophils 0.03 k/cumm (0.0-0.7) 02/16/19 06:30 Absolute Basophils 0.01 k/cumm (0.0-0.2) 02/16/19 06:30 Nucleated RBCs 1 /100WBC 02/15/19 06:45 Differential Comment Manual differential 02/15/19 06:45 RBC Morphology See below 02/15/19 06:45 Polychromasia Present 02/15/19 06:45 Hypochromasia 2+ 02/15/19 06:45 Poikilocytosis 2+ 02/14/19 06:25 Basophilic Stippling Present 02/15/19 06:45 Anisocytosis 2+ 02/15/19 06:45 Microcytosis 1+ 02/14/19 06:25 Macrocytosis 2+ 02/14/19 06:25 Stomatocytes 2+ 02/09/19 14:00 PT 13.1 sec (9.3-11.0) H 02/09/19 14:00 INR 1.3 (0.9-1.1) H 02/09/19 14:00 APTT 29.2 sec (21.0-31.4) 02/09/19 14:00 Sample Site Right radial 02/09/19 15:35 pCO2 40 mmHg (34-47) 02/09/19 15:35 pO2 95 mmHg (83-108) 02/09/19 15:35 O2 Saturation 98 % (94-98) 02/09/19 15:35 ABG pH 7.48 (7.35-7.45) H 02/09/19 15:35 ABG HCO3 29 mmol/L (22-28) H 02/09/19 15:35 ABG Total CO2 27 mmol/L (22-29) 02/09/19 15:35 ABG Base Excess 5.8 mmol/L (-3-3) H 02/09/19 15:35 Oxygen Liter Flow Bipap L 02/09/19 15:35 FiO2 50 % 02/09/19 15:35 Sodium 135 mmol/L (136-145) L 02/16/19 06:30 Potassium 3.7 mmol/L (3.5-5.1) 02/16/19 06:30 Chloride 98 mmol/L (98-107) 02/16/19 06:30 Carbon Dioxide 32.3 mmol/L (21.0-32.0) H 02/16/19 06:30 Anion Gap 4.7 mmol/L (3-11) 02/16/19 06:30 BUN 25 mg/dL (7-18) H D 02/16/19 06:30 Creatinine 0.96 mg/dL (0.70-1.30) 02/16/19 06:30 Estimated GFR/1.73 m2 >= 60.00 (mL/min/1.73m2) 02/16/19 06:30 Glucose 127 mg/dL (70-100) H 02/16/19 06:30 Lactate 1.2 mmol/l (0.6-1.4) 02/09/19 17:55 Calcium 8.0 mg/dL (8.5-10.1) L 02/16/19 06:30 Magnesium 1.7 mg/dL (1.8-2.4) L 02/16/19 06:30 Total Bilirubin 0.7 mg/dL (0.2-1.0) 02/09/19 14:00 AST 16 U/L (15-37) 02/09/19 14:00 ALT 9 U/L (12-78) L 02/09/19 14:00 Alkaline Phosphatase 112 U/L (46-116) 02/09/19 14:00 Troponin I 0.69 ng/mL (0.00-0.06) H* 02/11/19 06:30 NT-Pro-B Natriuret Pep 8651 pg/mL (-299) H 02/09/19 14:00 Total Protein 7.4 g/dL (6.4-8.2) 02/09/19 14:00 Albumin 3.3 g/dL (3.4-5.0) L 02/09/19 14:00 Triglycerides 50 mg/dL (30-150) 02/10/19 06:32 Total Cholesterol 106 mg/dL (50-200) 02/10/19 06:32 LDL Cholesterol Direct 59 mg/dL (<100) 02/10/19 06:32 HDL Cholesterol 43 mg/dL (40-60) 02/10/19 06:32 TSH 0.57 uIU/mL (0.358-3.74) 02/10/19 06:32 Urine Color Yellow (Yellow) 02/09/19 15:00 Urine Clarity Clear 02/09/19 15:00 Urine pH 6.0 (5-8) 02/09/19 15:00 Ur Specific [place] 1.015 (1.005-1.025) 02/09/19 15:00 Urine Protein 100 mg/dL (Negative) H 02/09/19 15:00 Urine Ketones Negative mg/dL (Negative) 02/09/19 15:00 Urine Blood Trace-intact (Negative) H 02/09/19 15:00 Urine Nitrite Negative (Negative) 02/09/19 15:00 Urine Bilirubin Negative (Negative) 02/09/19 15:00 Urine Urobilinogen 0.2 EU/dL (Up TO 0.2) 02/09/19 15:00 Ur Leukocyte Esterase Negative (Negative) 02/09/19 15:00 Urine RBC 0-2 (0-2) 02/09/19 15:00 Urine WBC 0-2 HPF (0-5) 02/09/19 15:00 Ur Epithelial Cells Rare HPF (Negative) 02/09/19 15:00 Urine Crystals Negative HPF (Negative) 02/09/19 15:00 Urine Bacteria Rare HPF (Negative) 02/09/19 15:00 Urine Casts 0-2 hyaline LPF (Negative) 02/09/19 15:00 Urine Mucus Trace (Negative) 02/09/19 15:00 Urine Other Rare renal (Negative) 02/09/19 15:00 Ur Culture Indicated? No 02/09/19 15:00 Urine Glucose Negative mg/dL (Negative) 02/09/19 15:00 Vancomycin Trough 17.7 ug/mL (10.0-20.0) 02/15/19 14:10 Path Cons Comment See comment 02/09/19 14:00 Patient ABO/Rh A Positive 02/14/19 14:38 Antibody Screen Negative 02/14/19 14:38 Crossmatch See Detail 02/14/19 14:38
[2019-02-17 07:18] LABS: Abs Immature Grans 0.14 k/cumm (0.0-0.09); Absolute Lymphocyte Count 1.83 k/cumm (1.2-3.4); HCT 30.6 % (40.0-50.0); HGB 9.5 g/dL (13.5-17.5); Mean Corpuscular Hemoglobin 29.6 pg (27.0-33.0); Mean Corpuscular Volume 95.3 fL (80-95); Mean Platelet Volume 10.1 fL (8.0-11.0); Platelet Count 254 x1000/uL (130-400); RBC 3.21 m/cumm (4.50-6.00); RBC Distribution Width 18.6 % (11.8-14.1); White Blood Cell Count 12.22 k/cumm (4.4-10.8)
[2019-02-17 07:25] LABS: Anion Gap 5.2 mmol/L (3-11); BUN 20 mg/dL (7-18); CO2 32.8 mmol/L (21.0-32.0); CREATININE 0.85 mg/dL (0.70-1.30); Calcium 8.1 mg/dL (8.5-10.1); Chloride 98 mmol/L (98-107); Glucose 85 mg/dL (70-100); Magnesium 1.8 mg/dL (1.8-2.4); Potassium 3.5 mmol/L (3.5-5.1); Sodium 136 mmol/L (136-145)
[2019-02-17 07:42] LABS: Absolute Monocyte Count 1.22 k/cumm (0.11-0.7); Absolute Neutrophil Count 9.53 k/cumm (1.2-6.7); Diff Comment Manual Differential; Nucleated RBC 4 /100WBC
[2019-02-17 07:44] LABS: Hypochromasia 2+; Microcytosis 2+
[2019-02-17 08:05] VITALS: BP 157/73; PULSE 72; RESP 21; TEMP 36.2; O2SAT 94
[2019-02-17] MEDS: Sucralfate 1 GM TAB PO ×4 (08:18→21:15)
[2019-02-17] MEDS: Metoprolol CR 50 MG TABCR PO (08:20)
[2019-02-17] MEDS: Furosemide 40 MG TAB PO (08:20)
[2019-02-17] MEDS: dilTIAZem 30 MG TAB PO ×3 (08:20→19:45)
[2019-02-17] MEDS: predniSONE 20 MG TAB 40 MG PO (08:21)
[2019-02-17] MEDS: Pantoprazole 40 MG VIAL IVP ×2 (08:23→19:46)
[2019-02-17] MEDS: Normal Saline Flush 10 ML SYR IVP ×2 (08:24→19:47)
[2019-02-17] MEDS: Nicotine 14 MG/24 HR PATCH TD (08:25)
[2019-02-17] MEDS: Ferrous Sulfate 325 MG TAB PO ×2 (09:42→19:45)
[2019-02-17] MEDS: Folic Acid 1 MG TAB PO (09:42)
[2019-02-17] MEDS: Calcium 600mg/Vit D 200U TAB 1 TAB PO ×3 (09:42→19:45)
[2019-02-17] MEDS: Thiamine 100 MG TAB PO (09:42)
[2019-02-17] MEDS: Docusate Sodium 100 MG CAP PO ×2 (09:42→19:46)
[2019-02-17] MEDS: Multivitamin TAB 1 TAB PO (09:42)
[2019-02-17] MEDS: Finasteride 5 MG TAB PO (09:42)
[2019-02-17] MEDS: Primidone 50 MG TAB PO ×3 (09:42→19:44)
[2019-02-17] MEDS: Allopurinol 300 MG TAB PO (09:43)
[2019-02-17] MEDS: Tamsulosin 0.4 MG CAPCR 0.8 MG PO (09:43)
[2019-02-17] MEDS: Lidocaine 5% Patch 1 PATCH TD (09:43)
[2019-02-17] MEDS: Gabapentin 300 MG CAP PO ×3 (09:43→19:46)
[2019-02-17] MEDS: Senna TAB 1 TAB PO (09:43)
--- NOTE | 2019-02-17 10:57 | OT.INTREAT ---
Date of service: 02/17/19 Time of Service: 10:30 Occupational Therapy Notes Occupational Therapy Inpatient Treatment Note Date: 02/17/19 PRECAUTIONS: Fall, standard SUBJECTIVE: Pt was sitting in chair when OT arrived. He is agreeable to OT session and states that he feels better than he did yesterday. OBJECTIVE: PAIN:no c/o pain BATHING: Sitting in chair with max (A) set up Upper Body: (I) washing face and abdomen, max (A) back, max (A) underarms, max (A) hair Lower Body: Max (A) DRESSING: Sitting in chair Upper Extremity: min (A) donning and doffing hospital gown Lower Extremity: max (A) donning and doffing (B) socks. GROOMING: Pt denies brushing teeth, max (A) brushing hair. ASSESSMENT/PLAN: Pt was able to perform ADLs sitting in chair today. He states that he was feeling a little better today. He functionally was able to perform his ADLs in the sitting position which is an improvement since yesterday. He still presents with decreased functional activity tolerance at this time limiting his ability to perform ADLs in standing. TREATMENT CODES/TIME: [id number], 25 minutes (10:30) Sheela Oneil OTR/[facility]
--- NOTE | 2019-02-17 11:08 | OTTR_ITS ---
Date of service: 02/17/19 Time of Service: 10:30 Occupational Therapy Notes Occupational Therapy Inpatient Treatment Note Date: 02/17/19 PRECAUTIONS: Fall, standard SUBJECTIVE: Pt was sitting in chair when OT arrived. He is agreeable to OT session and states that he feels better than he did yesterday. OBJECTIVE: PAIN:no c/o pain BATHING: Sitting in chair with max (A) set up Upper Body: (I) washing face and abdomen, max (A) back, max (A) underarms, max (A) hair Lower Body: Max (A) DRESSING: Sitting in chair Upper Extremity: min (A) donning and doffing hospital gown Lower Extremity: max (A) donning and doffing (B) socks. GROOMING: Pt denies brushing teeth, max (A) brushing hair. ASSESSMENT/PLAN: Pt was able to perform ADLs sitting in chair today. He states that he was feeling a little better today. He functionally was able to perform his ADLs in the sitting position which is an improvement since yesterday. He still presents with decreased functional activity tolerance at this time limiting his ability to perform ADLs in standing. TREATMENT CODES/TIME: [id number], 25 minutes (10:30) Sheela Oneil OTR/[facility]
[2019-02-17] MEDS: Potassium Chloride 20 MEQ TABCR 40 MEQ PO (11:36)
[2019-02-17] MEDS: Magnesium Oxide 400 MG TAB PO (11:36)
--- NOTE | 2019-02-17 14:29 | PDOC.CMPRO ---
- If Service Date Differs Date of service: 02/17/19 Time of Service: 14:29 Care Management Progress Note S/O:CM met with Dave at the bedside he is alert at the time of visit. His breathing continues to be labored he states it his baseline. His hgb is stable today he may be ready to return to the rehab on Thursday if his hgb remains stable. He was started on short acting oral morphine to treat dyspnea. No other changes today. half-way Medicaid nurse will meet with him today to complete clinical assessment for choices for care highest needs. CM updated [facility] pt status. A:Dave is a 78 year old male admitted with sepsis, r/t pneumonia P:Dave remains acute no change in status today. Dave will [facility] when medically ready. CM has updated family and facility discharge planning and disposition.
--- NOTE | 2019-02-17 14:57 | CMPROGNOTE_ITS ---
- If Service Date Differs Date of service: 02/17/19 Time of Service: 14:29 Care Management Progress Note S/O:CM met with Dave at the bedside he is alert at the time of visit. His breathing continues to be labored he states it his baseline. His hgb is stable today he may be ready to return to the rehab on Thursday if his hgb remains stable. He was started on short acting oral morphine to treat dyspnea. No other changes today. retirement Medicaid nurse will meet with him today to complete clinical assessment for choices for care highest needs. CM updated admission coordinator [facility] with pt status. A:Dave is a 78 year old male admitted with sepsis, r/t pneumonia P:Dave remains acute no change in status today. Dave will [facility] to [facility] when medically ready. CM has updated family and facility discharge planning and disposition.
--- NOTE | 2019-02-17 15:09 | PT.INPN ---
Date of service: 02/17/19 Time of Service: 09:32 PT Notes Inpatient Physical Therapy Progress Note Date: 02/17/2019 Dates of Service: 02/10/19 through 02/17/19 Precautions: Fall. Contact precautions. Subjective: Patient is agreeable to a PT session and reassessment. He reports that he is is not as tired as yesterday. He states that it does not hurt to breathe. He complains of no dizziness nor pain. Objective: General Observation: Patient seen lying in bed telemetry on, IV on right UE, oxygen supplementation via nasal cannula at 3 L/min. No bilateral TEDs seen on legs. Edema to bilateral legs now resolved. Patient continues to demonstrate with labored breathing even at rest. Mental Status: Alert and oriented as to person and place, mildly confused but pleasant and able to follow instructions with minimal verbal cueing. Pain: Patient denies pain. ROM: Right Upper Extremity: WFL Left Upper Extremity: WFL Right Lower Extremity: WFL Left Lower Extremity: WFL Strength: Right Upper Extremity: WFL Left Upper Extremity: WFL Right Lower Extremity: Hip flexors 4/5. Hip extensors 4-/5. Knee extensors 4/5. Knee flexors 4+/5. Ankle dorsiflexors 4+/5. Ankle plantarflexors 4+/5. Left Lower Extremity: Hip flexors 4/5. Hip extensors 4-/5. Knee extensors 4/5. Knee flexors 4+/5. Ankle dorsiflexors 4+/5. Ankle plantarflexors 4+/5. Sensation: Intact to B LE chest pain and pressure Bed Mobility/Transfers: Rolling supervision Supine to sit supervision Sit to supine supervision Sit to stand CGA Stand to sit CGA Bed to chair CGA Chair to bed see GI Gait: Patient completed in-room ambulation with FWW 5 feet x 2 with SBA with oxygen saturation between 90% to 93% throughout activity. THERAEX: Patient is able to tolerate seated and standing level exercises x10 reps as indicated in exercise flowsheet with blood pressure ranging from 123/56-120 over 57 mmHg. Balance: Static Sitting: Good Dynamic Sitting: Good Static Standing: Fair Dynamic Standing: Fair Special Tests: Mobility Limitations Standardized Measure [facility]-PAC 6 clicks Basic Mobility Inpatient Short Form: Raw Score: 17 CMS Score: 50% deficit Informed Consent/Education: Patient instructed in purpose of continued PT consult and plan of care. Patient was also instructed on deep breathing exercises in order to facilitate return of oxygen saturation to above normal limits and to maximize exercise performance. Assessment: Patient is a 78 year old male referred to physical therapy services with the diagnosis lower lobe pneumonia, acute exacerbation of CHF, and limited activity tolerance. Patient continues to present with clinical signs and symptoms consistent with current/admitting diagnoses that has resulted to mobility limitations, gait instability, generalized weakness, and lack of motor control as demonstrated by the following impairment level findings: 1. Decreased strength to B LE major muscle groups 2. Impaired balance 3. Impaired activity tolerance Impairments are contributing to the following functional limitations: 1. Decreased bed mobility skills 2. Increased dependence with transfers 3. Inability to safely ambulate without assistive device and physical assistance 4. Increase completion time for mobility ADL performance 5. Increased fall risk 6. Inability to negotiate steps alone safely Patient is assessed as a Moderate [id number] complexity based on the following: History: 78-year-old male with diagnosis of right lower lobe pneumonia acute on chronic CHF and hypoxia with limited activity tolerance, comorbidities and past medical history as indicated above Examination: Underlying impairments and functional deficits have resulted to an AMPAC score of 17 with an equivalent CMS score of 50% deficit Presentation: Evolving Decision Makin moderate complexity Goals: Goals X1 week 1. Supine-Sit independent 2. Sit-Supine independent 3. Sit-Stand independent 4. Stand-Sit independent 5. Bed-Chair independent 6. Chair-Bed independent 7. Gait on level surface ambulation with use of least restrictive device for at least 200 feet without report of pain nor dyspnea 8. Stairs independent while holding onto bilateral rails for at least 5 steps without report of pain nor dyspnea 9. Independent with home exercise program 10. Balance good for static and dynamic standing Plan of Care/Treatment Plan: 1-2x/day, 7 days/week x 1 week. Plan of care has been reviewed with the NETSUITE DEVELOPER providing the service under Physical Therapy direction. Initiate Physical Therapy intervention for strengthening, bed mobility, transfers, gait, stairs, balance training, use of assistive device. DISCHARGE RECOMMENDATIONS: Patient will benefit from prison facility placement in order to maximize functional mobility level, mobility progression of endurance level, evaluate home safety, and establish/implement a functional maintenance program. TREATMENT CODE/TIME: 22433 20 minutes, 16559 18 minutes beginning at 9:32 AM. Thank you for this referral. Funmilayo Woodard, PT, DPT, CLT [facility]
--- NOTE | 2019-02-17 15:30 | PT.INNT ---
Date of service: 02/17/19 Time of Service: 15:31 PT Notes 02/17/19 Patient refused afternoon PT session. Will attempt to resume PT services tomorrow morning.
[2019-02-17 15:40] VITALS: O2SAT 98
[2019-02-17 15:41] VITALS: BP 146/67; PULSE 65; RESP 22; TEMP 36.2; O2SAT 98
--- NOTE | 2019-02-17 19:42 | W.PM.PROGNOT ---
Date of Service Date of service: 02/17/19 Time of Service: 19:42 Assessment and Plan (1) Anemia: Current visit: Yes Status: Chronic Last EGD 01/14 at outside hospital with evidence of gastritis per report. Review of prior records with normal EGD/Colonoscopy in 2016. Current Hgb remains stable - has received 3 units total of PRBC's (4 units total during hospitalization at [facility]). Chemical DVT prophylaxis and aspirin discontinued. Will continue BID PPI and QID Sucralfate. Will recommend repeat H/H as outpatient at time of discharge. (2) Sepsis: Current visit: Yes Status: Acute Resolved with treatment of pneumonia. (3) HCAP (healthcare-associated pneumonia): Current visit: Yes Status: Acute Received a 7 day course of Vancomycin and Pip-Tazo. MRSA screen positive, and rapid flu negative. Blood Cultures with NG X 120 Hours. Breathing reportedly at baseline in patient with significant underlying COPD and on home O2, with continued ongoing tobacco use. (4) COPD (chronic obstructive pulmonary disease): Current visit: Yes Status: Chronic Continue antibiotics, duonebs as needed, and wean steroids as able - decreased prednisone yesterday. Will ensure taper at discharge. (5) Atrial fibrillation: Current visit: Yes Status: Chronic Converted to NSR. Continue oral Cardizem and BB therapy. Merits anticoagulation with a ChadsVasc2 score of 5, but given recent and now current GI Bleed is not a candidate currently. Continue to monitor on telemetry. ECHO results as above. (6) NSTEMI (non-ST elevated myocardial infarction): Current visit: Yes Status: Acute Demand Ischemia in setting of infection, hypoxia, and Afib with RVR. Troponin downtrended. Continue daily high potency statin, and BB therapy. ASA on hold. (7) Acute CHF: Current visit: Yes Status: Acute Right sided systolic CHF, with noted Diastolic heart failure and fairly significant valvulopathy with moderate , and moderate to severe MR. CHF in the setting of AFib with RVR. Appears closer to euvolemic. Furosemide gtt discontinued, and patient back on once daily diuretic therapy. Monitor daily weights carefully - currently stable and decreased. (8) CAD (coronary artery disease): Current visit: Yes Status: Chronic Noted, with Type 2 NSTEMI as above. Continue statin, BB. Aspirin on hold due to GIB. (9) Lung mass: Current visit: Yes Status: Acute Noted lung mass with mediastinal LAD. Per lengthy discussion with patient and his family, it appears that he may have had this mass for a number of years. His relatives relayed that per discussion with his PCP Dr. Godoy at [facility], this has been evaluated in the past. They also remember being told by [facility] a number of years ago of a 'spot on his lungs'. Records from [facility] indicate a long history of lung ca. (10) DVT prophylaxis: Current visit: Yes Status: Acute Avoid chemical prophylaxis given GI bleed. Ensure SCDs and TEDs. (11) Advance directive on file: Current visit: Yes Status: Acute DNR/DNI Subjective Interval history since last seen: 78 year old man with a prior medical history significant for a recent hospitalization and treatment for pneumonia, admitted from [facility] Emergency Department on 02/09 with a diagnosis of sepsis and RLL Pneumonia. Mr. 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 He was recented treated for pneumonia at [facility] between 01/02 and 01/26/19. He also had apparent GI bleed on that admission due to gastritis, and BPH with urinary retention. He was sent to [facility] and rehab for Jail and PT. He presented to the ED with complaints of SOB, and was found to be hypoxic to the 80's on 3L (described as his baseline), in acute CHF, with an altered mental status. He was placed on BIPAP and diuresed. He was also found to have a RLL pneumonia, suspicious for aspiration. He went into rapid Afib with HR up to 170's. He was placed on cardizem gtt and admitted for further evaluation and treatment. Of note, he also has a lung mass by imaging. The patient was empirically treated for HCAP with combination of Vancomycin and Pip-Tazo. Speech Therapy has evaluated the patient and without any evidence of aspiration risk. He has since converted back to NSR, but also showed a minimal elevation in troponin deemed very likely demand in nature. The patient was maintained on a lasix drip with excellent output, treated for CHF - his ECHO showed a normal LVEF, DD, Moderate with moderate to severe MR, moderately reduced RV Function, and Significant PHTN. Mr. Hyman's Hemoglobin had been stable in the 8's range and unchanged through his hospital course. He has a history of GIB during his recent hospitalization, requiring transfusion with 4 units of PRBCs. EGD performed on 01/14 at [facility] showed evidence of Gastritis, with coffee ground material seen in the stomach. On 02/14 the patient's Hemoglobin dropped slightly to 7.7, and he was reported to start having dark stools with scant blood. He was ordered 2 Units of PRBCs, but prior to receiving them suffered an unresponsive episode while on the commode. He regained consciousness with essentially stable vitals without intervention, but a repeat CBC showed his Hgb to have dropped to 6.6. He responded to transfusion, then required another unit 2 days ago. Since then his Hgb has remained stable and unchanged, with no further reports of dark stools. He reports his breathing is at baseline. No other events were reported overnight. He remains afebrile. Exam Narrative Exam Narrative: General: Patient appears pale, sitting in bed, AAOX3, NAD. Neck: Supple CV: Regular, nontachycardic, S1S2. 3/6 LLSB and RUSB murmurs appreciated. Pulmonary: Continued decreased right base breath sounds but vastly improved, mild continued crackles on right base, no wheezing Abdomen: + Bowel Sounds, soft, nontender, nondistended Vascular: Mild bilateral lower extremity edema Psych: Normal mood and affect. Objective Objective Clinical Data: Abnormal lab results 02/17/19 02/17/19 Range/Units 06:52 06:52 WBC 12.22 H (4.4-10.8) k/cumm RBC 3.21 L (4.50-6.00) m/cumm Hgb 9.5 L (13.5-17.5) g/dL Hct 30.6 L (40.0-50.0) % MCV 95.3 H (80-95) fL MCHC 31.0 L (32.0-36.0) g/dL RDW 18.6 H (11.8-14.1) % Absolute Neutrophils 9.53 H (1.2-6.7) k/cumm Absolute Monocytes 1.22 H (0.11-0.7) k/cumm Carbon Dioxide 32.8 H (21.0-32.0) mmol/L BUN 20 H (7-18) mg/dL Calcium 8.1 L (8.5-10.1) mg/dL Vital Signs Temperature 36.2 C L 02/17/19 15:41 Temperature Source Tympanic 02/17/19 15:41 Pulse 65 02/17/19 15:41 Pulse Rhythm Regular 02/17/19 15:40 Pulse 72 02/14/19 00:02 Respiratory Rate 22 02/17/19 15:41 Respiratory Effort 02/17/19 15:40 Respiratory Depth Deep 02/17/19 15:40 Respiratory Pattern Irregular 02/17/19 15:40 Blood Pressure 146/67 H 02/17/19 15:41 Blood Pressure Mean 100 02/14/19 00:01 Blood Pressure Position Supine 02/13/19 12:08 Pulse Oximetry 98 02/17/19 15:41 Oxygen Delivery Method Nasal Cannula 02/17/19 15:41 Oxygen Flow Rate 3 02/17/19 15:41 Fraction of Inspired Oxygen (FIO2) 40 02/11/19 23:50 Pain Level 5 02/17/19 11:03 Comment 02/17/19 08:05 Intake & Output 02/16/19 02/17/19 02/17/19 23:59 11:59 23:59 Intake Total 800 / 1100 1540 / 1540 Output Total 1050 / 0 1900 / 2600 700 / 2600 Balance -250 / -950 -1900 / -1060 840 / -1060 Weight 71.6 kg Intake: IV 20 / 320 Oral 480 / 480 1540 / 1540 Blood Product 300 / 300 Rbc Leuko Reduced Unit 300 / 300 [id number] Output: Urine 1050 / 2050 1900 / 2600 700 / 2600 Other: Urine Color Yellow Yellow Yellow Urine Appearance Clear Clear Clear Stool Size Moderate Stool Characteristics Soft Black Laboratory Results WBC 12.22 k/cumm (4.4-10.8) H 02/17/19 06:52 RBC 3.21 m/cumm (4.50-6.00) L 02/17/19 06:52 Hgb 9.5 g/dL (13.5-17.5) L 02/17/19 06:52 Hct 30.6 % (40.0-50.0) L 02/17/19 06:52 MCV 95.3 fL (80-95) H 02/17/19 06:52 MCH 29.6 pg (27.0-33.0) 02/17/19 06:52 MCHC 31.0 g/dL (32.0-36.0) L 02/17/19 06:52 RDW 18.6 % (11.8-14.1) H 02/17/19 06:52 Plt Count 254 x1000/uL (130-400) 02/17/19 06:52 MPV 10.1 fL (8.0-11.0) 02/17/19 06:52 Immature Gran % See Differential 02/17/19 06:52 Neutrophils % 75.0 02/17/19 06:52 Band Neutrophils % 3.0 % 02/17/19 06:52 Lymphocytes % 15.0 02/17/19 06:52 Atypical Lymphs % 1 02/15/19 06:45 Monocytes % 10.0 02/17/19 06:52 Eosinophils % 0.0 02/17/19 06:52 Basophils % 0.0 02/17/19 06:52 Myelocytes % 1.0 % 02/15/19 06:45 Absolute Neutrophils 9.53 k/cumm (1.2-6.7) H 02/17/19 06:52 Absolute Lymphocytes 1.83 k/cumm (1.2-3.4) 02/17/19 06:52 Absolute Monocytes 1.22 k/cumm (0.11-0.7) H 02/17/19 06:52 Absolute Eosinophils 0.00 k/cumm (0.0-0.7) 02/17/19 06:52 Absolute Basophils 0.00 k/cumm (0.0-0.2) 02/17/19 06:52 Nucleated RBCs 4 /100WBC 02/17/19 06:52 Differential Comment Manual differential 02/17/19 06:52 RBC Morphology See below 02/17/19 06:52 Polychromasia Present 02/15/19 06:45 Hypochromasia 2+ 02/17/19 06:52 Poikilocytosis 2+ 02/14/19 06:25 Basophilic Stippling Present 02/15/19 06:45 Anisocytosis 2+ 02/15/19 06:45 Microcytosis 2+ 02/17/19 06:52 Macrocytosis 2+ 02/14/19 06:25 Stomatocytes 2+ 02/09/19 14:00 PT 13.1 sec (9.3-11.0) H 02/09/19 14:00 INR 1.3 (0.9-1.1) H 02/09/19 14:00 APTT 29.2 sec (21.0-31.4) 02/09/19 14:00 Sample Site Right radial 02/09/19 15:35 pCO2 40 mmHg (34-47) 02/09/19 15:35 pO2 95 mmHg (83-108) 02/09/19 15:35 O2 Saturation 98 % (94-98) 02/09/19 15:35 ABG pH 7.48 (7.35-7.45) H 02/09/19 15:35 ABG HCO3 29 mmol/L (22-28) H 02/09/19 15:35 ABG Total CO2 27 mmol/L (22-29) 02/09/19 15:35 ABG Base Excess 5.8 mmol/L (-3-3) H 02/09/19 15:35 Oxygen Liter Flow Bipap L 02/09/19 15:35 FiO2 50 % 02/09/19 15:35 Sodium 136 mmol/L (136-145) 02/17/19 06:52 Potassium 3.5 mmol/L (3.5-5.1) 02/17/19 06:52 Chloride 98 mmol/L (98-107) 02/17/19 06:52 Carbon Dioxide 32.8 mmol/L (21.0-32.0) H 02/17/19 06:52 Anion Gap 5.2 mmol/L (3-11) 02/17/19 06:52 BUN 20 mg/dL (7-18) H 02/17/19 06:52 Creatinine 0.85 mg/dL (0.70-1.30) 02/17/19 06:52 Estimated GFR/1.73 m2 >= 60.00 (mL/min/1.73m2) 02/17/19 06:52 Glucose 85 mg/dL (70-100) 02/17/19 06:52 Lactate 1.2 mmol/l (0.6-1.4) 02/09/19 17:55 Calcium 8.1 mg/dL (8.5-10.1) L 02/17/19 06:52 Magnesium 1.8 mg/dL (1.8-2.4) 02/17/19 06:52 Total Bilirubin 0.7 mg/dL (0.2-1.0) 02/09/19 14:00 AST 16 U/L (15-37) 02/09/19 14:00 ALT 9 U/L (12-78) L 02/09/19 14:00 Alkaline Phosphatase 112 U/L (46-116) 02/09/19 14:00 Troponin I 0.69 ng/mL (0.00-0.06) H* 02/11/19 06:30 NT-Pro-B Natriuret Pep 8651 pg/mL (-299) H 02/09/19 14:00 Total Protein 7.4 g/dL (6.4-8.2) 02/09/19 14:00 Albumin 3.3 g/dL (3.4-5.0) L 02/09/19 14:00 Triglycerides 50 mg/dL (30-150) 02/10/19 06:32 Total Cholesterol 106 mg/dL (50-200) 02/10/19 06:32 LDL Cholesterol Direct 59 mg/dL (<100) 02/10/19 06:32 HDL Cholesterol 43 mg/dL (40-60) 02/10/19 06:32 TSH 0.57 uIU/mL (0.358-3.74) 02/10/19 06:32 Urine Color Yellow (Yellow) 02/09/19 15:00 Urine Clarity Clear 02/09/19 15:00 Urine pH 6.0 (5-8) 02/09/19 15:00 Ur Specific Hope 1.015 (1.005-1.025) 02/09/19 15:00 Urine Protein 100 mg/dL (Negative) H 02/09/19 15:00 Urine Ketones Negative mg/dL (Negative) 02/09/19 15:00 Urine Blood Trace-intact (Negative) H 02/09/19 15:00 Urine Nitrite Negative (Negative) 02/09/19 15:00 Urine Bilirubin Negative (Negative) 02/09/19 15:00 Urine Urobilinogen 0.2 EU/dL (Up TO 0.2) 02/09/19 15:00 Ur Leukocyte Esterase Negative (Negative) 02/09/19 15:00 Urine RBC 0-2 (0-2) 02/09/19 15:00 Urine WBC 0-2 HPF (0-5) 02/09/19 15:00 Ur Epithelial Cells Rare HPF (Negative) 02/09/19 15:00 Urine Crystals Negative HPF (Negative) 02/09/19 15:00 Urine Bacteria Rare HPF (Negative) 02/09/19 15:00 Urine Casts 0-2 hyaline LPF (Negative) 02/09/19 15:00 Urine Mucus Trace (Negative) 02/09/19 15:00 Urine Other Rare renal (Negative) 02/09/19 15:00 Ur Culture Indicated? No 02/09/19 15:00 Urine Glucose Negative mg/dL (Negative) 02/09/19 15:00 Vancomycin Trough 17.7 ug/mL (10.0-20.0) 02/15/19 14:10 Path Cons Comment See comment 02/09/19 14:00 Patient ABO/Rh A Positive 02/14/19 14:38 Antibody Screen Negative 02/14/19 14:38 Crossmatch See Detail 02/14/19 14:38
[2019-02-17] MEDS: Budesonide/Formoterol 160/4.5 6 GM 60 PUFF INH IH (19:44)
[2019-02-17] MEDS: Rosuvastatin 10 MG TAB PO (19:46)
[2019-02-17] MEDS: Patch Removal 1 EACH TP (19:47)
[2019-02-18 00:06] VITALS: BP 146/75; PULSE 68; RESP 20; TEMP 36.3; O2SAT 96
[2019-02-18 01:32] VITALS: BP 142/75; PULSE 66; RESP 20; TEMP 36.4; O2SAT 95
[2019-02-18 01:34] VITALS: O2SAT 95
[2019-02-18 07:05] LABS: HCT 31.3 % (40.0-50.0); HGB 9.5 g/dL (13.5-17.5); Mean Corp. HGB Concentration 30.4 g/dL (32.0-36.0); Mean Corpuscular Hemoglobin 29.4 pg (27.0-33.0); Mean Corpuscular Volume 96.9 fL (80-95); Mean Platelet Volume 9.9 fL (8.0-11.0); Platelet Count 264 x1000/uL (130-400); RBC 3.23 m/cumm (4.50-6.00); RBC Distribution Width 18.2 % (11.8-14.1); White Blood Cell Count 11.33 k/cumm (4.4-10.8)
[2019-02-18 07:20] LABS: Anion Gap 2.6 mmol/L (3-11); BUN 19 mg/dL (7-18); CO2 33.4 mmol/L (21.0-32.0); CREATININE 0.78 mg/dL (0.70-1.30); Chloride 98 mmol/L (98-107); Glucose 73 mg/dL (70-100); Magnesium 1.9 mg/dL (1.8-2.4); Potassium 3.7 mmol/L (3.5-5.1); Sodium 134 mmol/L (136-145)
[2019-02-18 07:50] VITALS: BP 137/73; PULSE 74; RESP 22; TEMP 35.9; O2SAT 93
[2019-02-18 08:14] LABS: Absolute Lymphocyte Count 1.25 k/cumm (1.2-3.4); Absolute Monocyte Count 0.91 k/cumm (0.11-0.7); Absolute Neutrophil Count 9.18 k/cumm (1.2-6.7)
[2019-02-18 08:15] LABS: Nucleated RBC 4 /100WBC
[2019-02-18 08:16] LABS: Anisocytosis 2+; Diff Comment Manual Differential
[2019-02-18 08:17] LABS: Hypochromasia 2+; Microcytosis 2+
[2019-02-18] MEDS: Folic Acid 1 MG TAB PO (08:20)
[2019-02-18] MEDS: Thiamine 100 MG TAB PO (08:20)
[2019-02-18] MEDS: Primidone 50 MG TAB PO (08:20)
[2019-02-18] MEDS: Multivitamin TAB 1 TAB PO (08:20)
[2019-02-18] MEDS: Allopurinol 300 MG TAB PO (08:20)
[2019-02-18] MEDS: Gabapentin 300 MG CAP PO (08:21)
[2019-02-18] MEDS: Sucralfate 1 GM TAB PO ×2 (08:21→11:30)
[2019-02-18] MEDS: dilTIAZem 30 MG TAB PO (08:22)
[2019-02-18] MEDS: Docusate Sodium 100 MG CAP PO (08:22)
[2019-02-18] MEDS: Ferrous Sulfate 325 MG TAB PO (08:22)
[2019-02-18] MEDS: Finasteride 5 MG TAB PO (08:22)
[2019-02-18] MEDS: Tamsulosin 0.4 MG CAPCR 0.8 MG PO (08:22)
[2019-02-18] MEDS: Furosemide 40 MG TAB PO (08:22)
[2019-02-18] MEDS: Senna TAB 1 TAB PO (08:22)
[2019-02-18] MEDS: predniSONE 20 MG TAB 40 MG PO (08:22)
[2019-02-18] MEDS: Calcium 600mg/Vit D 200U TAB 1 TAB PO (08:22)
[2019-02-18] MEDS: Metoprolol CR 50 MG TABCR PO (08:22)
[2019-02-18] MEDS: Pantoprazole 40 MG VIAL IVP (08:23)
[2019-02-18] MEDS: Nicotine 14 MG/24 HR PATCH TD (08:23)
[2019-02-18] MEDS: Lidocaine 5% Patch 1 PATCH TD (08:24)
[2019-02-18] MEDS: Normal Saline Flush 10 ML SYR IVP (08:24)
--- NOTE | 2019-02-18 10:41 | OT.INDS ---
Date of service: 02/18/19 Time of Service: 10:15 Occupational Therapy Notes Occupational Therapy Inpatient Discharge Summary Date: 02/18/19 Dates of Service: 02/11/19-02/18/19 Referring Doctor: Ninfa Hanson MD OT Orders: Eval and Treat Precautions: Fall and Contact PATIENT PROFILE/ADMITTING DIAGNOSIS: Pt is a 78 year old male who was recently a resident at the [facility] and rehab. He was admitted through the ER for shortness of breath and hypoxia. He was later found to be positive to MRSA with lower lobe pneumonia. 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 He reports that he does not drive or receive services through [facility]. At baseline pt reports that he is (I) with all ADLs/IADLs and does not need help. Equipment owned/DME: Grab bars in shower. SUBJECTIVE: Pt was sitting in bed when OT arrived. He was agreeable to OT session. OBJECTIVE: Mental Status: A&Ox3 Pain: no c/o pain ROM: (B) UE WFL STRENGTH: 3- throughout globally FUNCTIONAL MOBILITY/ADLS: BATHING: Sitting in bed with max (A) set up Upper Body: (I) washing face and abdomen, max (A) back, max (A) underarms, max (A) hair Lower Body: Max (A) DRESSING: Sitting in chair Upper Extremity: min (A) donning and doffing hospital gown Lower Extremity: max (A) donning and doffing (B) socks. GROOMING Sitting in bed max (A) with hair, denies teeth. TOILETING Performed prior to OT arrival EATING (I) food to mouth translation BALANCE: Static sitting Normal Dynamic Sitting Normal ASSESSMENT: Patient is a 78-year-old male referred to occupational therapy services with diagnosis of lower lobe pneumonia, acute exacerbation of COPD and deconditioning. Pt was seen for 5 skilled OT sessions, he has progressed with his functional activity tolerance to performance of ADLs but still requires mod-max (A) at this time. Pt states that he is being discharged to SNF this afternoon when medically cleared per MD. GOALS Pt did not meet goals. 1. Transfers (I) 2. Dressing sitting in chair (I) with UE/LE dressing 3. Bathing Standing at sink pt will be able to wash face (I), sitting in chair pt will be able to wash UE/LE (I) 4. Toileting on toilet (I) 5. Eating (I) 6. Brushing teeth (I) standing at sink PLAN OF CARE/TREATMENT PLAN: Plan is for pt to be discharged today to [facility] when medically cleared per MD. DISCHARGE RECOMMENDATIONS OT recommends that pt be discharged to SNF when medically cleared per MD. Discharge from skilled OT services. TREATMENT TIME/MINUTES/CODES [id number], 25 minutes (10:15) [facility]
--- NOTE | 2019-02-18 10:46 | OTDS_ITS ---
Date of service: 02/18/19 Time of Service: 10:15 Occupational Therapy Notes Occupational Therapy Inpatient Discharge Summary Date: 02/18/19 Dates of Service: 02/11/19-02/18/19 Referring Doctor: Ninfa Hanson MD OT Orders: Eval and Treat Precautions: Fall and Contact PATIENT PROFILE/ADMITTING DIAGNOSIS: Pt is a 78 year old male who was recently a resident at the [facility] and rehab. He was admitted through the ER for shortness of breath and hypoxia. He was later found to be positive to MRSA with lower lobe pneumonia. 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 He reports that he does not drive or receive services through [facility]. At baseline pt reports that he is (I) with all ADLs/IADLs and does not need help. Equipment owned/DME: Grab bars in shower. SUBJECTIVE: Pt was sitting in bed when OT arrived. He was agreeable to OT session. OBJECTIVE: Mental Status: A&Ox3 Pain: no c/o pain ROM: (B) UE WFL STRENGTH: 3- throughout globally FUNCTIONAL MOBILITY/ADLS: BATHING: Sitting in bed with max (A) set up Upper Body: (I) washing face and abdomen, max (A) back, max (A) underarms, max (A) hair Lower Body: Max (A) DRESSING: Sitting in chair Upper Extremity: min (A) donning and doffing hospital gown Lower Extremity: max (A) donning and doffing (B) socks. GROOMING Sitting in bed max (A) with hair, denies teeth. TOILETING Performed prior to OT arrival EATING (I) food to mouth translation BALANCE: Static sitting Normal Dynamic Sitting Normal ASSESSMENT: Patient is a 78-year-old male referred to occupational therapy services with diagnosis of lower lobe pneumonia, acute exacerbation of COPD and deconditioning. Pt was seen for 5 skilled OT sessions, he has progressed with his functional activity tolerance to performance of ADLs but still requires mod- max (A) at this time. Pt states that he is being discharged to SNF this afternoon when medically cleared per MD. GOALS Pt did not meet goals. 1. Transfers (I) 2. Dressing sitting in chair (I) with UE/LE dressing 3. Bathing Standing at sink pt will be able to wash face (I), sitting in chair pt will be able to wash UE/LE (I) 4. Toileting on toilet (I) 5. Eating (I) 6. Brushing teeth (I) standing at sink PLAN OF CARE/TREATMENT PLAN: Plan is for pt to be discharged today to [facility] when medically cleared per MD. DISCHARGE RECOMMENDATIONS OT recommends that pt be discharged to SNF when medically cleared per MD. Discharge from skilled OT services. TREATMENT TIME/MINUTES/CODES [id number], 25 minutes (10:15) [facility]
[2019-02-18] MEDS: Magnesium Oxide 400 MG TAB PO (11:30)
[2019-02-18] MEDS: POTASSIUM CHLORIDE 20 MEQ, POTASSIUM CHLORIDE 10 MEQ 30 MEQ PO (11:31)
--- NOTE | 2019-02-18 12:08 | W.PM.DS.N ---
Date of service: 02/18/19 Time of Service: 12:08 DS: Diagnosis Discharge Diagnosis (1) Anemia: Status: Chronic (2) Sepsis: Status: Acute (3) HCAP (healthcare-associated pneumonia): Status: Acute (4) COPD (chronic obstructive pulmonary disease): Status: Chronic (5) Atrial fibrillation: Status: Chronic (6) NSTEMI (non-ST elevated myocardial infarction): Status: Acute (7) Acute CHF: Status: Acute (8) CAD (coronary artery disease): Status: Chronic (9) Lung mass: Status: Acute (10) DVT prophylaxis: Status: Acute (11) Advance directive on file: Status: Acute Discharge Plan Disposition Patient Disposition: SNF (LEVEL 1) [facility] Condition: Stable Discharge Details Reason For Visit: SEPSIS DUE TO ASPIRATION PNEUMONIA, RESPIRATORY FA Admit Date/Time: 02/09/19 14:58 Admit Provider: Ninfa Hanson Attending Provider: Ninfa Hanson [facility] Course: CC: Dyspnea HPI: 78 year old man with a prior medical history significant for a recent hospitalization and treatment for pneumonia, admitted from [facility] Emergency Department on 02/09 with a diagnosis of sepsis and RLL Pneumonia. Mr. 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 He was recented treated for pneumonia at [facility] between 01/02 and 01/26/19. He also had apparent GI bleed on that admission due to gastritis, and BPH with urinary retention. He was sent to [facility] and rehab for Half-Way and PT. He presented to the ED with complaints of SOB, and was found to be hypoxic to the 80's on 3L (described as his baseline), in acute CHF, with an altered mental status. He was placed on BIPAP and diuresed. He was also found to have a RLL pneumonia, suspicious for aspiration. He went into rapid Afib with HR up to 170's. He was placed on cardizem gtt and admitted for further evaluation and treatment. Of note, he also has a lung mass by imaging. The patient was empirically treated for HCAP with combination of Vancomycin and Pip-Tazo. Speech Therapy has evaluated the patient and without any evidence of aspiration risk. He has since converted back to NSR, but also showed a minimal elevation in troponin deemed very likely demand in nature. The patient was maintained on a lasix drip with excellent output, treated for CHF - his ECHO showed a normal LVEF, DD, Moderate with moderate to severe MR, moderately reduced RV Function, and Significant PHTN. Mr. Gillettes Hemoglobin had been stable in the 8's range and unchanged through his hospital course. He has a history of GIB during his recent hospitalization, requiring transfusion with 4 units of PRBCs. EGD performed on 01/[address] [facility] showed evidence of Gastritis, with coffee ground material seen in the stomach. On 02/14 the patient's Hemoglobin dropped slightly to 7.7, and he was reported to start having dark stools with scant blood. He was ordered 2 Units of PRBCs, but prior to receiving them suffered an unresponsive episode while on the commode. He regained consciousness with essentially stable vitals without intervention, but a repeat CBC showed his Hgb to have dropped to 6.6. He responded to transfusion, then required another unit 2 days ago. Since then his Hgb has remained stable and unchanged, with no further reports of dark stools. He reports his breathing remains at baseline. No other events were reported overnight. He remains afebrile. Hospital Course: (1) Anemia: Last EGD 01/14 at outside hospital with evidence of gastritis per report. Review of prior records with normal EGD/Colonoscopy in 2016. Current Hgb remains stable - has received 3 units total of PRBC's (4 units total during hospitalization at [facility]). Chemical DVT prophylaxis and aspirin discontinued. Will continue BID PPI and QID Sucralfate. Will recommend repeat H/H as outpatient at time of discharge. (2) Sepsis: Resolved with treatment of pneumonia. (3) HCAP (healthcare-associated pneumonia): Received a 7 day course of Vancomycin and Pip-Tazo. MRSA screen positive, and rapid flu negative. Blood Cultures with NG X 120 Hours. Breathing reportedly at baseline in patient with significant underlying COPD and on home O2, with continued ongoing tobacco use. (4) COPD (chronic obstructive pulmonary disease): Wean steroids with taper at discharge. (5) Atrial fibrillation: Converted to NSR. Continue oral Cardizem and BB therapy. Merits anticoagulation with a ChadsVasc2 score of 5, but given recent and now current GI Bleed is not a candidate currently. Continue to monitor on telemetry. ECHO results as above. (6) NSTEMI (non-ST elevated myocardial infarction): Demand Ischemia in setting of infection, hypoxia, and Afib with RVR. Troponin downtrended. Continue daily high potency statin, and BB therapy. ASA on hold in setting of GIB. (7) Acute CHF: Right sided systolic CHF, with noted Diastolic heart failure and fairly significant valvulopathy with moderate , and moderate to severe MR. CHF in the setting of AFib with RVR. Appears closer to euvolemic. Furosemide gtt discontinued, and patient back on once daily diuretic therapy. Monitor daily weights carefully - currently stable and decreased. (8) CAD (coronary artery disease): Noted, with Type 2 NSTEMI as above. Continue statin, BB. Aspirin on hold due to GIB. (9) Lung mass: Noted lung mass with mediastinal LAD. Per lengthy discussion with patient and his family, it appears that he may have had this mass for a number of years. His relatives relayed that per discussion with his PCP Dr. Godoy at [facility], this has been evaluated in the past. They also remember being told by [facility] a number of years ago of a 'spot on his lungs'. Records from [facility] indicate a long history of lung ca. (10) Advance directive on file: DNR/DNI Home Meds and New Rx's Prescriptions: New diltiazem HCl [Cardizem] 30 mg Tablet 30 mg PO TID Qty: 0 RF: 0 morphine 15 mg Tablet 7.5 mg PO Q3H PRN PRNQty: 21 RF: 0 rosuvastatin [Crestor] 10 mg Tablet 10 mg PO QPM Qty: 1 RF: 0 prednisone 10 mg tablet 10 mg PO DAILY Qty: 18 RF: 0 Continued acetaminophen 500 mg Capsule 500 mg PO Q6H PRNRF: 0 allopurinol 300 mg Tablet 300 mg PO DAILY RF: 0 alum-mag hydroxide-simeth [Antacid] 200-200-20 mg/5 mL Suspension 10 ml PO Q6H PRNRF: 0 Breo Ellipta 200-25 mcg/dose Blister With Device 1 inh INHALATION DAILY RF: 0 furosemide 40 mg Tablet 40 mg PO DAILY RF: 0 polyethylene glycol 3350 [Miralax] 17 gram Powder In Packet 17 g PO DAILY RF: 0 tamsulosin [Flomax] 0.4 mg Capsule 0.8 mg PO DAILY RF: 0 ferrous sulfate 325 mg (65 mg iron) Tablet 325 mg PO BID RF: 0 lidocaine [Lidoderm] 5 % Adhesive Patch,Medicated 1 patch Transdermal DAILY RF: 0 docusate sodium [Colace] 100 mg Capsule 100 mg PO BID RF: 0 gabapentin 300 mg Capsule 300 mg PO TID RF: 0 folic acid 1 mg Tablet 1 mg PO DAILY RF: 0 finasteride 5 mg Tablet 5 mg PO DAILY RF: 0 Calcium 600 + D(3) 600 mg calcium- 200 unit Capsule 1 cap PO TID RF: 0 multivitamin Tablet 1 tab PO DAILY RF: 0 primidone 50 mg Tablet 50 mg PO TID RF: 0 sennosides [senna] 8.6 mg Tablet 17.2 mg PO DAILY RF: 0 sucralfate 1 gram Tablet 1 g PO AC & HS RF: 0 thiamine HCl (vitamin B1) 100 mg Tablet 100 mg PO DAILY RF: 0 pantoprazole [Protonix] 40 mg Tablet,Delayed Release (Dr/Ec) 40 mg PO BID RF: 0 albuterol sulfate [Ventolin HFA] 90 mcg/actuation Hfa Aerosol Inhaler 2 puff Inhalation Q4H PRN PRN (Reason: Shortness Of Breath) RF: 0 metoprolol succinate 50 mg Cap,Sprinkle,Er 24hr Dose Pack 50 mg PO DAILY RF: 0 Discontinued simvastatin 20 mg Tablet 20 mg PO QAM RF: 0 oxycodone 5 mg Tablet 5 mg PO Q6H RF: 0 Discharge Instructions Stand Alone Forms: Nursing Discharge Form Activity:: As per PT Equipment/Supplies:: No Equipment Needed Diet:: Low Sodium Discharge Orders Discharge Orders: Discharge Order (Routine); Ordered 02/18/19 Ordered By: Russell Fuentes Other Ambulatory Orders: Basic Metabolic Panel (Routine) Timeframe: 3 Days Location: Determined by Patient Ordered By: Russell Fuentes Complete Blood Count w/Diff (Routine) Location: Determined by Patient Ordered By: Russell Fuentes Exam Narrative Exam Narrative: General: Patient appears pale, sitting in bed, AAOX3, NAD. Neck: Supple CV: Regular, nontachycardic, S1S2. 3/6 LLSB and RUSB murmurs appreciated. Pulmonary: Continued decreased right base breath sounds but vastly improved, mild continued crackles on right base, no wheezing Abdomen: + Bowel Sounds, soft, nontender, nondistended Vascular: Mild bilateral lower extremity edema Psych: Normal mood and affect. DS: Data Vitals/I&O Vitals and I&O: Vital Signs Temperature 35.9 C L 02/18/19 07:50 Temperature Source Tympanic 02/18/19 07:50 Pulse 74 02/18/19 07:50 Pulse Rhythm Regular 02/18/19 08:00 Pulse 72 02/14/19 00:02 Respiratory Rate 22 02/18/19 07:50 Respiratory Effort Incrsd Work of Breathing 02/18/19 08:00 Respiratory Depth Deep 02/18/19 08:00 Respiratory Pattern Irregular 02/18/19 08:00 Blood Pressure 137/73 02/18/19 07:50 Blood Pressure Mean 100 02/14/19 00:01 Blood Pressure Position Supine 02/13/19 12:08 Pulse Oximetry 93 L 02/18/19 07:50 Oxygen Delivery Method Nasal Cannula 02/18/19 07:50 Oxygen Flow Rate 3 02/18/19 07:50 Fraction of Inspired Oxygen (FIO2) 40 02/11/19 23:50 Pain Level 0 02/18/19 07:50 Comment 02/17/19 08:05 Intake & Output 02/17/19 02/18/19 02/18/19 23:59 11:59 23:59 Intake Total 1540 / 1540 400 / 400 Output Total 900 / 2800 700 / 700 Balance 640 / -1260 -300 / -300 Weight 70.6 kg Intake: Oral 1540 / 1540 400 / 400 Output: Urine 900 / 2800 700 / 700 Other: Urine Color Yellow Pale Yellow Urine Appearance Clear Clear Stool Size Moderate Moderate Stool Characteristics Soft Soft Black Black Completed studies during hospitalization [Text1]: Exam(s) 02/02 a RAD:XR chest 2V PA & lateral SYMPTOMS/DIAGNOSIS: F/U CHF PA AND LATERAL CHEST: No priors. The heart is at the upper limits of normal in size. The pulmonary vasculature may be mildly prominent. There are bilateral pleural effusions and basilar infiltrates. There is an opacity seen in the left upper lobe. The lungs do appear to be hyperinflated suggesting some underlying COPD. Degenerative changes are seen in the spine. There is an old compression deformity of T 10. IMPRESSION: 1. Bilateral pleural effusions and bilateral basilar infiltrates. Differential considerations include pneumonia vs pulmonary edema/congestive heart failure. 2. Ovoid opacity in the left upper lobe. Differential considerations include pulmonary mass, atelectasis or pneumonia. Follow up as clinically appropriate. If there are prior films for comparison, an addendum will be issued. ------- Exam(s) 02/09 a RAD:XR portable chest AP SYMPTOMS/DIAGNOSIS: SHORTNESS OF BREATH PORTABLE AP CHEST: Comparison is made with January,. The heart is enlarged, unchanged. There are bilateral pleural effusions, not significantly changed. The left upper lobe opacity is partially obscured by an overlying lead. Right lower lobe infiltrate is also seen. IMPRESSION: No significant change in bilateral pleural effusions and basilar infiltrates, as well as left upper lobe infiltrate versus mass. ------ EXAM: CT Angiography Chest With Contrast EXAM DATE/TIME: 02/09/2019 4:02 PM CLINICAL HISTORY: 78 years old, male; Signs and symptoms; Shortness of breath; Patient HX: Hypoxia, lung cancer, ? pe TECHNIQUE: Imaging protocol: Axial computed tomographic angiography images of the chest with intravenous contrast using CT angiography protocol. Coronal and sagittal reformatted images were created and reviewed. 3D rendering: MIP reconstructed images were created and reviewed. Radiation optimization: All CT scans at this facility use at least one of these dose optimization techniques: automated exposure control; mA and/or kV adjustment per patient size (includes targeted exams where dose is matched to clinical indication); or iterative reconstruction. Contrast material: omnipaque 350 Contrast volume: 69 ml Contrast route: IV COMPARISON: CR XR PORTABLE CHEST AP 02/09/2019 2:28 PM FINDINGS: Pulmonary arteries: No pulmonary embolism identified. Aorta: Aorta demonstrates moderate atherosclerotic calcification. Lungs: 4 x 3 x 4.4 cm masslike density with ill-defined margins left upper lobe. Mild patchy somewhat nodular air space disease scattered throughout the right lung and left lower lobe. Pleural space: Bilateral small pleural effusions with associated atelectasis. Heart: Mild cardiomegaly. Coronary artery calcifications noted. Liver: Nodular contour to the liver consistent with hepatocellular dysfunction/ cirrhosis. Lymph nodes: Mild mediastinal and hilar adenopathy. Bones/joints: Unremarkable. No acute fracture. Soft tissues: Bilateral gynecomastia. IMPRESSION: 1. Mild mediastinal and hilar adenopathy. 2. Bilateral small pleural effusions with associated atelectasis. 3. 4 x 3 x 4.4 cm masslike density with ill-defined margins left upper lobe. Neoplasm cannot be excluded. 4. Mild patchy somewhat nodular air space disease scattered throughout the right lung and left lower lobe. 5. Cirrhotic appearing liver. 6. No pulmonary embolism identified. -------- Exam(s) a CT:CT chest PE CTA SYMPTOM/DIAGNOSIS: HYPOXIA, LUNG CA, ? PE PE CHEST CT: CT angiography was performed with multi slice acquisition and multi planar and 3D reconstruction. The study was conducted according to the usual protocol with an intravenous administration of 69 cc's of Omnipaque 350. There are atherosclerotic changes involving the aorta without evidence of an aneurysm. There is a 4 by 3 by 4.4 cm. mass density with ill defined margins in the left upper lobe. Also noted is made of patchy and somewhat nodular air space disease scattered throughout the right lung and left lower lobe. Small bilateral pleural effusions are associated with atelectasis. The heart is mildly enlarged and coronary artery calcification is demonstrated. In the upper abdomen, note is made of a nodular liver, the findings consistent with cirrhosis. There is mild adenopathy in the mediastinum and brad. The bony structures are unremarkable. Note is also made in this patient of apparent bilateral gynecomastia. SUMMARY: Mild mediastinal hilar adenopathy. No evidence of pulmonary embolic disease. Bilateral small pleural effusions. There is a 4 by 3 by 4.4 cm. apparent mass density with ill defined margins in the left upper lobe. Note is also made of mild patchy somewhat nodular air space disease throughout the right lung and left lower lobe. The appearance of the liver would be consistent with cirrhosis. ------- Exam(s) a US:US echocardiogram Date of study: 02/10/2019 Transthoracic Echocardiography M-mode, complete 2D, complete spectral Doppler, and color Doppler *STUDY CONCLUSIONS* Summary: 1. Left ventricle: The cavity size was normal. Systolic function was hyperdynamic. The estimated ejection fraction was 65-70%. Some parameters suggest diastolic dysfunction. Doppler parameters are consistent with high ventricular filling pressure. Stroke volume/bsa (LVOT, Doppler): 26ml/m^2. 2. Ventricular septum: The contour showed diastolic flattening and systolic flattening. These changes are consistent with RV volume and RV pressure overload. 3. Aortic valve: There was moderate stenosis. Peak velocity (S): 2.1m/sec. Mean gradient (S): 10.6mm Hg. Valve area (VTI): 1.3cm^2. Indexed valve area (Vmean): 0.6cm^2/m^2. 4. Mitral valve: Mildly calcified annulus. There was moderate to severe regurgitation. 5. Left atrium: The atrium was severely dilated. 6. Right ventricle: The cavity size was mildly dilated. Systolic function was moderately reduced. 7. Right atrium: The atrium was severely dilated. 8. Atrial septum: No defect or patent foramen ovale was identified. 9. Tricuspid valve: There was severe regurgitation. 10. Pulmonic valve: There was moderate regurgitation. 11. Pulmonary arteries: Pulmonary systolic pressure was in the range of 100mm Hg to 115mm Hg. 12. Inferior vena cava: The vessel was patent and normal in size. The respirophasic diameter changes were in the normal range (greater than or equal to 50%), consistent with normal central venous pressure. Exam(s) 02/10 a RAD:XR portable chest AP SYMPTOMS/DIAGNOSIS: F/U PNEUMONIA/CHF PORTABLE AP UPRIGHT CHEST: When compared with the previous examination of 02/09, interval deterioration is demonstrated with increased consolidation/atelectasis involving both lower lobes. Again noted is a rounded density projected over the right upper lobe. The heart is enlarged. Prominence of the upper lobe vessels is demonstrated. SUMMARY: When compared with the previous examination, interval deterioration is demonstrated. The findings would be consistent with an acute pneumonitis. Again suggested is the possibility of a left upper lobe mass and the possibility of superimposed congestive failure could not be excluded. Labs on day of discharge: Labs from last 24 hours 02/18/19 02/18/19 02/17/19 06:52 06:52 06:52 WBC 11.33 H RBC 3.23 L Hgb 9.5 L Hct 31.3 L MCV 96.9 H MCH 29.4 MCHC 30.4 L RDW 18.2 H Plt Count 264 MPV 9.9 Immature Gran % 0.0 Neutrophils % 81.0 Lymphocytes % 11.0 Monocytes % 8.0 Eosinophils % 0.0 Basophils % 0.0 Absolute Neutrophils 9.18 H Absolute Lymphocytes 1.25 Absolute Monocytes 0.91 H Absolute Eosinophils 0.00 Absolute Basophils 0.00 Nucleated RBCs 4 Differential Comment Manual differential RBC Morphology See below Hypochromasia 2+ Anisocytosis 2+ Microcytosis 2+ Sodium 134 L Potassium 3.7 Chloride 98 Carbon Dioxide 33.4 H Anion Gap 2.6 L BUN 19 H Creatinine 0.78 Estimated GFR/1.73 m2 >= 60.00 Glucose 73 Calcium 8.0 L Magnesium 1.9 Path Cons Comment Cancelled 02/11/19 12:48 Sputum Sputum Culture - Pending 02/11/19 12:48 Sputum Gram Stain - Pending Preliminary micro results at discharge 02/11/19 12:48 Sputum Culture - Pending Sputum Gram Stain - Pending [facility] Medical History Alcohol dependence (Chronic) Ambulatory dysfunction (Chronic) Anemia, iron deficiency (Chronic) Atrial fibrillation (Chronic) BPH (benign prostatic hyperplasia) (Chronic) CAD (coronary artery disease) (Chronic) COPD (chronic obstructive pulmonary disease) (Chronic) Chronic combined systolic and diastolic CHF (congestive heart failure) (Chronic) Chronic respiratory failure with hypoxia (Chronic) Gastritis (Chronic) Gout (Chronic) Lung cancer (Chronic) PAD (peripheral artery disease) (Chronic) Pulmonary hypertension (Chronic) Tricuspid regurgitation (Chronic) Urinary retention (Chronic) Vertebral compression fracture (Chronic) GI hemorrhage (Resolved) Pneumonia (Resolved) Surgical History H/O angioplasty (Chronic) History of esophagogastroduodenoscopy (EGD) (Chronic) Hx of colonoscopy (Chronic) S/P aortobifemoral bypass surgery (Chronic) Family History Brother Hypertension Hyperlipidemia Mother Heart disease Father Hypertension Diabetes Heart disease Social History Smoking/Tobacco Use Status: Former Tobacco Use Alcohol Intake: former Drug use: Never Details: [t short of breath non verbal Do you feel safe at home: Yes Do you feel safe in your relationship?: Yes
--- NOTE | 2019-02-18 13:55 | PDOC.CMDIS ---
- If Service Date Differs Date of service: 02/18/19 Time of Service: 13:55 LACE Index Scoring Tool - Questions: Length of Stay (in days): 4 - 6 Acuity (Admit via E.D.?): Yes Comorbidities: Chronic Pulmonary Disease E.D. Visits: 1 - Answers: Total Score: 10 Risk of Readmission: High Risk Care Management Discharge Reason for Hospitalization: HCAP, Sepsis Discharge Plan: Dave will be [facility] via wheelchair van coordianted by CM through RCT. Dave had his assessment for [facility] med[facility] which is still pending. CM met with Dave and his sister he is ready to return to [facility] re[facility]. Dave is hopeful that he will be able to transfer to a nursing facility in [facility] referrals pending at several nursing facilities in that area. [facility] updated. Patient/Family Education Needs: Discharge education, limitation and follow up plan of care as directed. Services Needed at Discharge: Alf Facility, Transportation
--- NOTE | 2019-02-18 14:56 | CMDISCH_ITS ---
- If Service Date Differs Date of service: 02/18/19 Time of Service: 13:55 LACE Index Scoring Tool - Questions: Length of Stay (in days): 4 - 6 Acuity (Admit via E.D.?): Yes Comorbidities: Chronic Pulmonary Disease E.D. Visits: 1 - Answers: Total Score: 10 Risk of Readmission: High Risk Care Management Discharge Reason for Hospitalization: HCAP, Sepsis Discharge Plan: Dave will be discharged to [facility] today via wheelchair van coordianted by CM through RCT. Dave had his assessment for [facility] med[facility] which is still pending. CM met with Dave and his sister he is ready to return to health and rehab. Dave is hopeful that he will be able to transfer to a nursing facility in [facility] referrals pending at several nursing facilities in that area. [facility] updated. Patient/Family Education Needs: Discharge education, limitation and follow up plan of care as directed. Services Needed at Discharge: Long-Term Facility, Transportation
--- NOTE | 2019-02-18 17:08 | PT.INDS ---
Date of service: 02/18/19 Time of Service: 10:37 PT Notes Inpatient Physical Therapy Discharge Summary Dates: 02/17/2019 Dates of Service: 02/10/2019-02/18/2019 Precautions: Fall. Contact precautions. Subjective: Patient is agreeable to a PT session and discharge assessment assessment. He reports no dizziness nor pain. Objective: General Observation: Patient seen lying in bed telemetry on, IV on right UE, oxygen supplementation via nasal cannula at 3 L/min. No bilateral TEDs seen on legs. Edema to bilateral legs now resolved. Patient continues to demonstrate with labored breathing even at rest. Mental Status: Alert and oriented as to person and place, mildly confused but pleasant and able to follow instructions with minimal verbal cueing. Pain: Patient denies pain. ROM: Right Upper Extremity: WFL Left Upper Extremity: WFL Right Lower Extremity: WFL Left Lower Extremity: WFL Strength: Right Upper Extremity: WFL Left Upper Extremity: WFL Right Lower Extremity: Hip flexors 4/5. Hip extensors 4-/5. Knee extensors 4/5. Knee flexors 4+/5. Ankle dorsiflexors 4+/5. Ankle plantarflexors 4+/5. Left Lower Extremity: Hip flexors 4/5. Hip extensors 4-/5. Knee extensors 4/5. Knee flexors 4+/5. Ankle dorsiflexors 4+/5. Ankle plantarflexors 4+/5. Sensation: Intact to B LE chest pain and pressure Bed Mobility/Transfers: Rolling supervision Supine to sit supervision Sit to supine supervision Sit to stand CGA Stand to sit CGA Bed to chair CGA Chair to bed see GI Gait: Patient completed in-room ambulation with FWW 5 feet x 2 with SBA with oxygen saturation between 90% to 93% throughout activity. THERAEX: Patient is able to tolerate seated and standing level exercises x10 reps as indicated in exercise flowsheet with blood pressure ranging from 123/56-120 over 57 mmHg. Balance: Static Sitting: Good Dynamic Sitting: Good Static Standing: Fair Dynamic Standing: Fair Special Tests: Mobility Limitations Standardized Measure [facility] AM-PAC 6 clicks Basic Mobility Inpatient Short Form: Raw Score: 17 CMS Score: 50% deficit Informed Consent/Education: Patient instructed in purpose of continued PT consult and plan of care. Patient was also instructed on deep breathing exercises in order to facilitate return of oxygen saturation to above normal limits and to maximize exercise performance. Assessment: Patient is a 78 year old male referred to physical therapy services with the diagnosis lower lobe pneumonia, acute exacerbation of CHF, and limited activity tolerance. Patient continues to present with clinical signs and symptoms consistent with current/admitting diagnoses that has resulted to mobility limitations, gait instability, generalized weakness, and lack of motor control as demonstrated by the following impairment level findings: 1. Decreased strength to B LE major muscle groups 2. Impaired balance 3. Impaired activity tolerance Impairments are contributing to the following functional limitations: 1. Decreased bed mobility skills 2. Increased dependence with transfers 3. Inability to safely ambulate without assistive device and physical assistance 4. Increase completion time for mobility ADL performance 5. Increased fall risk 6. Inability to negotiate steps alone safely Goals: Goals X1 week 1. Supine-Sit independent NOT MET 2. Sit-Supine independent NOT MET 3. Sit-Stand independent NOT MET 4. Stand-Sit independent NOT MET 5. Bed-Chair independent NOT MET 6. Chair-Bed independent NOT MET 7. Gait on level surface ambulation with use of least restrictive device for at least 200 feet without report of pain nor dyspnea NOT MET 8. Stairs independent while holding onto bilateral rails for at least 5 steps without report of pain nor dyspnea NOT MET 9. Independent with home exercise program NOT MET 10. Balance good for static and dynamic standing NOT MET DISCHARGE RECOMMENDATIONS: Patient will benefit from prison facility placement in order to maximize functional mobility level, mobility progression of endurance level, evaluate home safety, and establish/implement a functional maintenance program. TREATMENT CODE/TIME: 33537 31 minutes beginning at 10:37 AM. Thank you for this referral. Funmilayo Woodard, PT, DPT, CLT [facility]
--- NOTE | 2019-02-18 17:13 | INDS_ITS ---
Date of service: 02/18/19 Time of Service: 10:37 PT Notes Inpatient Physical Therapy Discharge Summary Dates: 02/17/2019 Dates of Service: 02/10/2019-02/18/2019 Precautions: Fall. Contact precautions. Subjective: Patient is agreeable to a PT session and discharge assessment assessment. He reports no dizziness nor pain. Objective: General Observation: Patient seen lying in bed telemetry on, IV on right UE, oxygen supplementation via nasal cannula at 3 L/min. No bilateral TEDs seen on legs. Edema to bilateral legs now resolved. Patient continues to demonstrate with labored breathing even at rest. Mental Status: Alert and oriented as to person and place, mildly confused but pleasant and able to follow instructions with minimal verbal cueing. Pain: Patient denies pain. ROM: Right Upper Extremity: WFL Left Upper Extremity: WFL Right Lower Extremity: WFL Left Lower Extremity: WFL Strength: Right Upper Extremity: WFL Left Upper Extremity: WFL Right Lower Extremity: Hip flexors 4/5. Hip extensors 4-/5. Knee extensors 4/5. Knee flexors 4+/5. Ankle dorsiflexors 4+/5. Ankle plantarflexors 4+/5. Left Lower Extremity: Hip flexors 4/5. Hip extensors 4-/5. Knee extensors 4/5. Knee flexors 4+/5. Ankle dorsiflexors 4+/5. Ankle plantarflexors 4+/5. Sensation: Intact to B LE chest pain and pressure Bed Mobility/Transfers: Rolling supervision Supine to sit supervision Sit to supine supervision Sit to stand CGA Stand to sit CGA Bed to chair CGA Chair to bed see GI Gait: Patient completed in-room ambulation with FWW 5 feet x 2 with SBA with oxygen saturation between 90% to 93% throughout activity. THERAEX: Patient is able to tolerate seated and standing level exercises x10 reps as indicated in exercise flowsheet with blood pressure ranging from 123/56- 120 over 57 mmHg. Balance: Static Sitting: Good Dynamic Sitting: Good Static Standing: Fair Dynamic Standing: Fair Special Tests: Mobility Limitations Standardized Measure [facility] AM-PAC 6 clicks Basic Mobility Inpatient Short Form: Raw Score: 17 CMS Score: 50% deficit Informed Consent/Education: Patient instructed in purpose of continued PT consult and plan of care. Patient was also instructed on deep breathing exercises in order to facilitate return of oxygen saturation to above normal limits and to maximize exercise performance. Assessment: Patient is a 78 year old male referred to physical therapy services with the diagnosis lower lobe pneumonia, acute exacerbation of CHF, and limited activity tolerance. Patient continues to present with clinical signs and symptoms consistent with current/admitting diagnoses that has resulted to mobility limitations, gait instability, generalized weakness, and lack of motor control as demonstrated by the following impairment level findings: 1. Decreased strength to B LE major muscle groups 2. Impaired balance 3. Impaired activity tolerance Impairments are contributing to the following functional limitations: 1. Decreased bed mobility skills 2. Increased dependence with transfers 3. Inability to safely ambulate without assistive device and physical assistance 4. Increase completion time for mobility ADL performance 5. Increased fall risk 6. Inability to negotiate steps alone safely Goals: Goals X1 week 1. Supine-Sit independent NOT MET 2. Sit-Supine independent NOT MET 3. Sit-Stand independent NOT MET 4. Stand-Sit independent NOT MET 5. Bed-Chair independent NOT MET 6. Chair-Bed independent NOT MET 7. Gait on level surface ambulation with use of least restrictive device for at least 200 feet without report of pain nor dyspnea NOT MET 8. Stairs independent while holding onto bilateral rails for at least 5 steps without report of pain nor dyspnea NOT MET 9. Independent with home exercise program NOT MET 10. Balance good for static and dynamic standing NOT MET DISCHARGE RECOMMENDATIONS: Patient will benefit from shelter facility placement in order to maximize functional mobility level, mobility progression of endurance level, evaluate home safety, and establish/implement a functional maintenance program. TREATMENT CODE/TIME: 83699 31 minutes beginning at 10:37 AM. Thank you for this referral. Funmilayo Woodard, PT, DPT, CLT [facility]
== END 2019-02-18 14:00 | disposition skilled nursing facility (03) | DRG 193 ==
LOC: ER 16:10 → ICU 16:59 → MS 02-14 01:33 → ICU 02-24 10:02
PROVIDERS: Emergency Medicine; Internal Medicine; Admitting Provider Internal Medicine; Emergency Provider Emergency Medicine; PCP Family Medicine; Visit Provider Internal Medicine
DX: J18.9 Pneumonia, unspecified organism (principal); A41.9 Sepsis, unspecified organism; R65.20 Severe sepsis without septic shock; J96.21 Acute and chronic respiratory failure with hypoxia; K29.71 Gastritis, unspecified, with bleeding; I21.A1 Myocardial infarction type 2; I50.43 Acute on chronic combined systolic (congestive) and diastolic (congestive) heart failure; J44.0 Chronic obstructive pulmonary disease with (acute) lower respiratory infection; J98.11 Atelectasis; Y95 Nosocomial condition; D50.9 Iron deficiency anemia, unspecified; R55 Syncope and collapse; I48.91 Unspecified atrial fibrillation; E83.42 Hypomagnesemia; I47.2 Ventricular tachycardia; I27.20 Pulmonary hypertension, unspecified; R26.2 Difficulty in walking, not elsewhere classified; Z51.5 Encounter for palliative care; Z87.891 Personal history of nicotine dependence; Z99.81 Dependence on supplemental oxygen
CPT/HCPCS: 36415; 36430; 51702; 71275; 80048; 80053; 80061; 82805; 83721; 85027; 86850; 86900; 86901; 86920; 87040; 87081; 87449; 92610; 93005; 93306; 94640; 96365; 96367; 96368; 97110; 97162; 97166; 97530; 97535; 99232; 99233; 99239; 99254; 99291; 36600; 71045; 80202; 81003; 81015; 83605; 83735; 83880; 84132; 84443; 84484; 85014; 85018; 85025; 85610; 85730; 87070; 87205; 92507; 93010; 94660; J1160; J1940; J1941; J2543; J2930; J3370; J3475; J3480; J3490; J7512; J7613; J7620; P9016

== ENCOUNTER 2019-02-21 14:59 | Outpatient (REF) | payer MEDICARE, MEDICAID, SELFPAY ==
[2019-02-21 14:56] LABS: Abs Immature Grans 0.05 k/cumm (0.0-0.09); Absolute Basophil Count 0.01 k/cumm (0.0-0.2); Absolute Lymphocyte Count 0.42 k/cumm (1.2-3.4); Absolute Monocyte Count 0.52 k/cumm (0.11-0.7); Basophils % 0.1; Eosinophils % 0.4; HCT 33.8 % (40.0-50.0); HGB 10.3 g/dL (13.5-17.5); Immature Grans % 0.4; Lymphocytes % 3.7; Mean Corp. HGB Concentration 30.5 g/dL (32.0-36.0); Mean Corpuscular Hemoglobin 29.4 pg (27.0-33.0); Mean Corpuscular Volume 96.6 fL (80-95); Mean Platelet Volume 9.7 fL (8.0-11.0); Monocytes % 4.6; Neutrophils % 90.8; Platelet Count 326 x1000/uL (130-400); RBC Distribution Width 17.4 % (11.8-14.1); White Blood Cell Count 11.39 k/cumm (4.4-10.8)
[2019-02-21 14:57] LABS: Absolute Eosinophil Count 0.05 k/cumm (0.0-0.7); Absolute Neutrophil Count 10.34 k/cumm (1.2-6.7)
[2019-02-21 14:58] LABS: Anion Gap 8.9 mmol/L (3-11); BUN 16 mg/dL (7-18); CO2 30.1 mmol/L (21.0-32.0); CREATININE 1.03 mg/dL (0.70-1.30); Calcium 8.2 mg/dL (8.5-10.1); Chloride 95 mmol/L (98-107); Glucose 116 mg/dL (70-100); Sodium 134 mmol/L (136-145)
== END 2019-02-21 15:19 ==
LOC: LBN 14:59
PROVIDERS: PCP Family Medicine; Visit Provider Family Medicine
DX: D64.9 Anemia, unspecified (principal)
CPT/HCPCS: 80048; 85025

== ENCOUNTER 2019-02-25 12:09 | Emergency (ER) | payer MEDICARE, MEDICAID, SELFPAY ==
[2019-02-25] VITALS (16 sets, daily range): BP systolic 76–137; BP diastolic 50–63; PULSE 75–87; RESP 18; TEMP 36.7; O2SAT 91–96
--- NOTE | 2019-02-25 12:18 | NUR.NOTE ---
pt fell at [facility] at approximately 0600 pt was able to ambulate post fall. transferred to ed as a result of increasing pain
--- NOTE | 2019-02-25 12:22 | ED.GENADUL_ITS ---
Discharge Plan Discharge Details Chief Complaint: Orthopedic Primary Care Provider: Ike Godoy ED Provider: Andrew Singleton Home Meds and New Rx's Prescriptions: No Action acetaminophen 500 mg Capsule 500 mg PO Q6H PRNRF: 0 allopurinol 300 mg Tablet 300 mg PO DAILY RF: 0 alum-mag hydroxide-simeth [Antacid] 200-200-20 mg/5 mL Suspension 10 ml PO Q6H PRNRF: 0 Breo Ellipta 200-25 mcg/dose Blister With Device 1 inh INHALATION DAILY RF: 0 furosemide 40 mg Tablet 40 mg PO DAILY RF: 0 polyethylene glycol 3350 [Miralax] 17 gram Powder In Packet 17 g PO DAILY RF: 0 tamsulosin [Flomax] 0.4 mg Capsule 0.8 mg PO DAILY RF: 0 ferrous sulfate 325 mg (65 mg iron) Tablet 325 mg PO BID RF: 0 lidocaine [Lidoderm] 5 % Adhesive Patch,Medicated 1 patch Transdermal DAILY RF: 0 docusate sodium [Colace] 100 mg Capsule 100 mg PO BID RF: 0 gabapentin 300 mg Capsule 300 mg PO TID RF: 0 folic acid 1 mg Tablet 1 mg PO DAILY RF: 0 finasteride 5 mg Tablet 5 mg PO DAILY RF: 0 Calcium 600 + D(3) 600 mg calcium- 200 unit Capsule 1 cap PO TID RF: 0 multivitamin Tablet 1 tab PO DAILY RF: 0 primidone 50 mg Tablet 50 mg PO TID RF: 0 sennosides [senna] 8.6 mg Tablet 17.2 mg PO DAILY RF: 0 sucralfate 1 gram Tablet 1 g PO AC & HS RF: 0 thiamine HCl (vitamin B1) 100 mg Tablet 100 mg PO DAILY RF: 0 pantoprazole [Protonix] 40 mg Tablet,Delayed Release (Dr/Ec) 40 mg PO BID RF: 0 albuterol sulfate [Ventolin HFA] 90 mcg/actuation Hfa Aerosol Inhaler 2 puff Inhalation Q4H PRN PRN (Reason: Shortness Of Breath) RF: 0 metoprolol succinate 50 mg Cap,Sprinkle,Er 24hr Dose Pack 50 mg PO DAILY RF: 0 diltiazem HCl [Cardizem] 30 mg Tablet 30 mg PO TID Qty: 0 RF: 0 morphine 15 mg Tablet 7.5 mg PO Q3H PRN PRNQty: 21 RF: 0 rosuvastatin [Crestor] 10 mg Tablet 10 mg PO QPM Qty: 1 RF: 0 prednisone 10 mg tablet 10 mg PO DAILY Qty: 18 RF: 0 Medical Decision Making 78-year-old with multiple medical problems including severe COPD transported via EMS for evaluation of injuries sustained in a mechanical fall. Patient had fallen backwards with impact to his left posterior gluteal and lateral hip region. Denies other significant injury. Exam significant for focal left hip and gluteal tenderness with no other evidence of clinically significant injury. X-ray diagnostic for pubic ramus fractures. Otherwise, remained hemodynamically stable in the ED with no progressive constitutional complaints on reevaluation. Treated in the ED with acetaminophen. Transported back to his rehab facility for pain management and physical therapy evaluation/management. Pt evaluated immediately prior to discharge with improved symptoms, normal vital signs, and tolerating PO. The patient feels appropriate for discharge home. Discussed clinical/diagnostic findings. Discharged with a clear plan for outpatient follow up. Given usual and customary return instructions prior to discharge. Medical Records Medical records reviewed: Yes I reviewed the patient's medical records. Imaging Data Radiologic Study: Attestation: I personally reviewed and interpreted this imaging study as follows: Imaging: X-Ray (Left hip and pelvis) My impression: Left inferior and superior pubic rami fractures. Interpreted independently and contemporaneously by myself. Radiologist's impression: Same HPI 78-year-old gent with history of peripheral artery disease, CAD, atrial fibrillation, CHF, COPD, gastritis, and who uses a walker at baseline. Transported here via EMS after an accidental fall with impact to his left posterior gluteal region and left hip. He describes losing his balance and falling with impact to his left hip and gluteal region as described above. Denies significant head impact, neck pain, back pain, chest wall pain, abdominal pain, or other extremity injury. His fall was not preceded by atypical headache, focal extremity weakness, chest pain, or diaphoresis. He was unable to stand independently without significant pain. General Date/Time Provider Initiated Documentation: 02/25/19 12:17 . Related Data Home Medications Medication Instructions Recorded Confirmed Breo Ellipta 1 inh INHALATION DAILY 02/09/19 02/25/19 Calcium 600 + D(3) 1 cap PO TID 02/09/19 02/25/19 acetaminophen 500 mg PO Q6H PRN 02/09/19 02/25/19 albuterol sulfate [Ventolin HFA] 2 puff INHALATION Q4H PRN PRN 02/09/19 02/25/19 allopurinol 300 mg PO DAILY 02/09/19 02/25/19 alum-mag hydroxide-simeth [Antacid] 10 ml PO Q6H PRN 02/09/19 02/25/19 docusate sodium [Colace] 100 mg PO BID 02/09/19 02/25/19 ferrous sulfate 325 mg PO BID 02/09/19 02/25/19 finasteride 5 mg PO DAILY 02/09/19 02/25/19 folic acid 1 mg PO DAILY 02/09/19 02/25/19 furosemide 40 mg PO DAILY 02/09/19 02/25/19 gabapentin 300 mg PO TID 02/09/19 02/25/19 lidocaine [Lidoderm] 1 patch TRANSDERMAL DAILY 02/09/19 02/25/19 metoprolol succinate 50 mg PO DAILY 02/09/19 02/25/19 multivitamin 1 tab PO DAILY 02/09/19 02/25/19 pantoprazole [Protonix] 40 mg PO BID 02/09/19 02/25/19 polyethylene glycol 3350 [Miralax] 17 g PO DAILY 02/09/19 02/25/19 primidone 50 mg PO TID 02/09/19 02/25/19 sennosides [senna] 17.2 mg PO DAILY 02/09/19 02/25/19 sucralfate 1 g PO AC & HS 02/09/19 02/25/19 tamsulosin [Flomax] 0.8 mg PO DAILY 02/09/19 02/25/19 thiamine HCl (vitamin B1) 100 mg PO DAILY 02/09/19 02/25/19 diltiazem HCl [Cardizem] 30 mg PO TID #0 tab 02/18/19 02/25/19 morphine 7.5 mg PO Q3H PRN PRN #21 tab 02/18/19 02/25/19 prednisone 10 mg PO DAILY #18 tab 02/18/19 02/25/19 rosuvastatin [Crestor] 10 mg PO QPM #1 tab 02/18/19 02/25/19 Previous Rx's Medication Instructions Recorded diltiazem HCl [Cardizem] 30 mg PO TID #0 tab 04/05/19 morphine 7.5 mg PO Q3H PRN PRN #21 tab 02/18/19 prednisone 10 mg PO DAILY #18 tab 02/18/19 rosuvastatin [Crestor] 10 mg PO QPM #1 tab 02/18/19 Allergies Allergy/AdvReac Type Severity Reaction Status Date / Time azithromycin Allergy Unverified 02/25/19 12:21 General LAKE: 2 Review of Systems Review of Systems All systems are reviewed and are unremarkable except as noted in HPI and below: CONSTITUTIONAL: no fevers/chills, no weakness or change in appetite EYES: no change in vision HEENT: no throat pain or difficulty swallowing; no neck pain CARDIOVASCULAR: no chest pain, palpitations, leg swelling, or diaphoresis RESPIRATORY: no cough, wheezing; has baseline dyspnea which is stable. GASTROINTESTINAL: no abdominal pain, melena, nausea/emesis GENITOURINARY: no dysuria, flank pain, MUSCULOSKELETAL: no pack pain, myalgias, left hip pain/tenderness. INTEGUMENTARY: no rash, no wounds NEUROLOGIC: no headache, focal weakness, difficulty with speech, numbness PSYCHIATRIC: no confusion, no anxiety HEME: no easy bruising or bleeding ALLERGIC: no urticaria PFSH Medical History Alcohol dependence (Chronic) Ambulatory dysfunction (Chronic) Anemia, iron deficiency (Chronic) Atrial fibrillation (Chronic) BPH (benign prostatic hyperplasia) (Chronic) CAD (coronary artery disease) (Chronic) COPD (chronic obstructive pulmonary disease) (Chronic) Chronic combined systolic and diastolic CHF (congestive heart failure) (Chronic) Chronic respiratory failure with hypoxia (Chronic) Gastritis (Chronic) Gout (Chronic) Lung cancer (Chronic) PAD (peripheral artery disease) (Chronic) Pulmonary hypertension (Chronic) Tricuspid regurgitation (Chronic) Urinary retention (Chronic) Vertebral compression fracture (Chronic) GI hemorrhage (Resolved) Pneumonia (Resolved) Surgical History H/O angioplasty (Chronic) History of esophagogastroduodenoscopy (EGD) (Chronic) Hx of colonoscopy (Chronic) S/P aortobifemoral bypass surgery (Chronic) Family History Brother Hypertension Hyperlipidemia Mother Heart disease Father Hypertension Diabetes Heart disease Social History Smoking/Tobacco Use Status: Former Tobacco Use Alcohol Intake: former Drug use: Never Substance use type: does not use Details: [t short of breath non verbal Do you feel safe at home: Yes Do you feel safe in your relationship?: Yes Exam Narrative Exam Narrative: Nursing note and vital signs have been reviewed and noted. GENERAL: alert, active, no acute distress, well -hydrated, well-nourished HEENT: atraumatic/normocephalic, PERRLA, EOMI, conjunctiva clear, external ears/canals normal, nasal mucosa normal NECK: supple, full range of motion, no mass, normal lymphadenopathy, no thyromegaly CARDIOVASCULAR: RRR, no murmurs, nl pulses, no edema PULMONARY: Mild tachypnea (baseline according to patient), no audible wheezing or stridor, nl breath sounds with no focal deficit. no chest wall tenderness ABDOMEN: soft, non-tender, non-distended, no mass, no organomegaly EXTREMITY: normal muscle tone, no deformity; left greater trochanter tenderness and posterior gluteal tenderness. SKIN: no exanthem appreciated NEURO: gross motor exam normal, normal stance and gait PSYCH: alert and oriented,
--- NOTE | 2019-02-25 12:22 | DI.RAD_ITS ---
SYMPTOMS/DIAGNOSIS: FALL LEFT HIP AND PELVIS: Four views were obtained. No femoral fracture identified. There is a fracture of the superior pubic ramus and inferior pubic ramus on the left. No additional pelvic fracture seen. The films are not of ideal technical quality and the possibility of a sacral fracture is not excluded. Additional evaluation with oblique views or CT could be obtained if clinically appropriate.
[2019-02-25] MEDS: Acetaminophen 500 MG TAB 1000 MG PO (12:38)
== END 2019-02-25 15:30 | disposition home or self-care (01) ==
PROVIDERS: Emergency Provider Emergency Medicine; PCP Family Medicine
DX: S32.512A Fracture of superior rim of left pubis, initial encounter for closed fracture (principal); S32.592A Other specified fracture of left pubis, initial encounter for closed fracture; W01.0XXA Fall on same level from slipping, tripping and stumbling without subsequent striking against object, initial encounter
CPT/HCPCS: 99283; 73502; 99282

== ENCOUNTER → 2019-03-11 13:52 | Outpatient (BNVA) | payer MEDICARE, MEDICAID, SELFPAY | PROVIDERS: PCP Family Medicine; Referring Provider Family Medicine; Visit Provider Physical Therapy Assistant | DX: L72.3 Sebaceous cyst (principal); J44.9 Chronic obstructive pulmonary disease, unspecified; Z87.891 Personal history of nicotine dependence | CPT/HCPCS: 99211; 99213 ==